=== PATIENT | female | born 1970 | race Caucasian/White ===

== ENCOUNTER 2019-07-14 01:31 | Day surgery (SDC) | payer OTHER, SELFPAY ==
[2019-07-10 11:01] VITALS: BMI 30.2
--- NOTE | 2019-07-14 07:26 | P.HP_ITS ---
History of Present Illness History of Present Illness Consent: Risks, benefits, and alternatives have been discussed and questions answered. Patient agrees to proceed with procedure. Chief complaint: Hx of Polyps Narrative: Macrina Soria is a 49 year old W female undergoing screening colonoscopy secondary history of multiple colonic polyps removed 2 years ago. Patient also has intermittent diarrhea and history of microscopic colitis. Patient also with some intermittent abdominal pain bloating. She had a negative breath test For bacterial overgrowth. [facility] Past Medical History Medical History Heartburn Hypertension Surgical History Surgical History History of ankle surgery History of D&C History of hysterectomy Status post creation of urethral sling by suprapubic approach Family History Family History Mother Hypertension Family history of malignant neoplasm of breast in first degree relative Father Family history of lymphoma Other Cerebrovascular accident Family history of malignant neoplasm Social History Social History Smoking status: Never smoker Alcohol intake: current Meds Home Medications and Allergies Home Medications Medication Instructions Recorded Confirmed Type budesonide-formoterol HFA 80 2 puff INHALATION Q12H 03/03/19 07/10/19 History mcg-4.5 mcg/actuation aerosol inhaler hydrochlorothiazide 12.5 mg capsule 12.5 mg PO QAM 03/03/19 07/10/19 History montelukast 10 mg tablet 10 mg PO HS 03/03/19 07/10/19 History Bifidobacterium infantis [Align] 4 mg PO DAILY 07/10/19 07/10/19 History famotidine [Pepcid] 20 mg PO HS 07/10/19 07/10/19 History hyoscyamine sulfate 0.125 mg PO TID PRN 07/10/19 07/10/19 History nebivolol [Bystolic] 10 mg PO HS 07/10/19 07/10/19 History omeprazole 40 mg PO QAM 07/10/19 07/10/19 History Allergies Allergy/AdvReac Type Severity Reaction Status Date / Time sulfamethoxazole Allergy Unknown Rash Verified 07/10/19 10:50 trimethoprim Allergy Unknown Rash Verified 07/10/19 10:50 Exam Const: Orientation/consciousness: patient oriented x3 Resp: Auscultation: clear to auscultation bilaterally Cardio: Rate: regular rate Rhythm: regular rhythm Heart sounds: no murmurs GI: GI Palp: Yes Soft to palpation, No Tenderness to palpation present (GI), Yes No hepatosplenomegaly present and No Palpable mass present Auscultation: normal bowel sounds Neuro: General: patient oriented x3 and no focal motor deficits Extrem: General: no pedal edema Assessment and Plan Additional Plan Screening colonoscopy secondary history of colonic polyps
[2019-07-14 07:54] VITALS: BP 135/94; PULSE 85; RESP 16; TEMP 36.4; O2SAT 98
[2019-07-14] MEDS: LACTATED RINGERS 1,000 ML 150 ML IV CONT (07:56)
--- NOTE | 2019-07-14 07:59 | WPDANESEPPF ---
Anes - Initial Pre Proc Eval Procedure: Operation Date: 07/14/19 08:30 Proposed Procedures p Screening Colonoscopy - Paul Reyes MD Date/Time: 07/14/19 07:59 Surgeon: Paul Reyes MD Pre Op Diagnosis: Hx of Polyps Patient Data Age: 49 Gender: F Height: 5 ft 8 in Weight: 98.9 kg Last Vital Signs Temp 36.4 C L 07/14/19 07:54 Pulse 85 07/14/19 07:54 Resp 16 07/14/19 07:54 BP 135/94 H 07/14/19 07:54 Pulse Ox 98 07/14/19 07:54 Allergies Allergy/AdvReac Type Severity Reaction Status Date / Time sulfamethoxazole Allergy Unknown Rash Verified 07/14/19 07:38 trimethoprim Allergy Unknown Rash Verified 07/14/19 07:38 Home Medications Medication Instructions Recorded Confirmed Type budesonide-formoterol HFA 80 2 puff INHALATION Q12H 03/03/19 07/14/19 History mcg-4.5 mcg/actuation aerosol inhaler hydrochlorothiazide 12.5 mg capsule 12.5 mg PO QAM 03/03/19 07/14/19 History montelukast 10 mg tablet 10 mg PO HS 03/03/19 07/14/19 History Bifidobacterium infantis [Align] 4 mg PO DAILY 07/10/19 07/14/19 History famotidine [Pepcid] 20 mg PO HS 07/10/19 07/14/19 History hyoscyamine sulfate 0.125 mg PO TID PRN 07/10/19 07/14/19 History nebivolol [Bystolic] 10 mg PO HS 07/10/19 07/14/19 History omeprazole 40 mg PO QAM 07/10/19 07/14/19 History Patient hx anesthesia problems: none Family hx anesthesia problems: none PMFSH Past Medical History Medical History Heartburn Hypertension Surgical History Surgical History History of ankle surgery History of D&C History of hysterectomy Status post creation of urethral sling by suprapubic approach Family History Family History Mother Hypertension Family history of malignant neoplasm of breast in first degree relative Father Family history of lymphoma Other Cerebrovascular accident Family history of malignant neoplasm Social History Social History Smoking status: Never smoker Alcohol intake: current Anes - Eval Final PreProcedure Day of Procedure 07/14/19 07:59 Patient weight: obese Heart: regular rate and rhythm Lungs: clear to auscultation Airway: Mallampati scale class 1 Neurological: alert and oriented Last oral intake: >/= 8 hours ASA classification: III Emergent: no Anesthetic plan: proceed Anesthesia type and monitoring: general GIVS and standard monitoring Informed Consent: The patient's anesthetic plan and its attendant risks and benefits were discussed with the patient/family/POA. Questions were solicited and answers provided to the satisfaction of the patient/family/POA.
[2019-07-14 09:05] VITALS: BP 124/78; PULSE 76; RESP 20; O2SAT 100
[2019-07-14 09:15] VITALS: BP 115/71; PULSE 70; RESP 16; O2SAT 99
[2019-07-14 09:25] VITALS: BP 113/73; PULSE 66; RESP 18; O2SAT 99
== END 2019-07-14 09:40 | disposition home or self-care (01) ==
PROVIDERS: PCP Internal Medicine; Visit Provider Internal Medicine Gastroenterology
PROC: 0DJD8ZZ Inspection of Lower Intestinal Tract, Via Natural or Artificial Opening Endoscopic (ICD-10-PCS; CPT 45378; principal; 2019-07-14 08:30)
DX: Z12.11 Encounter for screening for malignant neoplasm of colon (principal); D12.2 Benign neoplasm of ascending colon; K52.9 Noninfective gastroenteritis and colitis, unspecified; K57.30 Diverticulosis of large intestine without perforation or abscess without bleeding; I10 Essential (primary) hypertension; R12 Heartburn; E66.9 Obesity, unspecified; Z68.33 Body mass index [BMI] 33.0-33.9, adult
CPT/HCPCS: 45380; 88305; J2704; J7120

== ENCOUNTER 2019-09-24 08:13 | Outpatient (CLI) | payer OTHER, SELFPAY ==
--- NOTE | ~2019-09-24 | CT_ITS ---
EXAMINATION: CT abdomen pelvis w con DATE: 09/24/2019 09:12 INDICATION: Abdominal pain and weight loss TECHNIQUE: Computed tomography (CT) of the abdomen and pelvis was performed with 100 cc Omnipaque 350 intravenous contrast. The dose-length product was 874.03 mGy-cm. Automated exposure control and iter ative reconstruction technique were employed. COMPARISON: CT dated 12/05/2004 FINDINGS: Lung bases are unremarkable. No significant pleural or pericardial effusion. Heart size is normal. No significant pleural or pericardial effusion. Fatty infiltration of the liver. Status post cholecys tectomy. The spleen, pancreas, adrenal glands and kidneys are unremarkable. Nonobstructive bowel gas pattern. Normal appendix. Nonobstructive bowel gas pattern. Small fat-containing umbilical hernia. No abnormal pelvic masses or fluid collections. Bladder is unremarkable. No significant vascular abnorm ality. No lymphadenopathy. No acute osseous abnormality. IMPRESSION: 1. Hepatic steatosis. 2: No acute abdominal abnormality. Reviewed, dictated and finalized at location A.
[2019-09-24 09:05] LABS: Estimated Glomerular Filt Rate > 60
[2019-09-24 09:10] LABS: Basophils Percent Auto 0.6 % (0.2-1.2); Eosinophils Absolute Auto 0.1 K/mm3 (0-0.3); Eosinophils Percent Auto 1.7 % (0-4.4); Hemoglobin 12.1 g/dL (12.0-15.0); Immature Granulocyte Absolute 0.01 K/mm3 (0.00-0.031); Immature Granulocyte Percent A 0.2 % (0-0.5); Lymphocytes Absolute Auto 2.09 K/mm3 (0.9-3.2); Lymphocytes Percent Auto 39.3 % (18.3-44.2); Mean Corpuscular HGB Conc 31.8 g/dl (32-36); Mean Corpuscular Hemoglobin 27.9 pg (26-34); Mean Corpuscular Volume 87.8 fl (80-100); Monocytes Absolute Auto 0.5 K/mm3 (0.1-0.6); Neutrophils Absolute Auto 2.6 K/mm3 (1.3-6.7); Neutrophils Percent Auto 48.2 % (45.5-73.1); Platelet Count Result 237 k/mm3 (150-375); Red Blood Count 4.33 M/mm3 (4.2-5.4); Red Cell Distribution Width 14.3 % (11.5-14.5); White Blood Count 5.3 K/mm3 (4.5-10.0)
[2019-09-24 09:28] LABS: Alanine Aminotransferase 21 U/L (4-35); Albumin Level 4.4 g/dL (3.5-5.1); Alkaline Phosphatase 64 U/L (38-126); Aspartate Amino Transferase 26 U/L (14-36); Bilirubin,Total 0.5 mg/dL (0.2-1.3); Blood Urea Nitrogen 21 mg/dL (7-17); Calcium 9.4 mg/dL (8.4-10.2); Carbon Dioxide 33 mmol/L (22-30); Chloride 100 mmol/L (98-107); Cholesterol 212 mg/dL (0-200); Estimated Glomerular Filt Rate > 60; Glucose 102 mg/dL (65-105); HDL Direct 46 mg/dL; Magnesium 1.8 mg/dL (1.6-2.3); Potassium 3.8 mmol/L (3.4-5.0); Sodium 138 mmol/L (137-145); Triglycerides 147 mg/dL (<150)
[2019-09-24 09:39] LABS: LDL Cholesterol Direct 132 mg/dL
[2019-09-24 09:58] LABS: Free T4 Free Thyroxine 0.94 ng/mL (0.78-2.19); Vitamin D 25 Hydroxy 73.1 ng/mL
== END 2019-09-24 08:14 | disposition home or self-care (01) ==
PROVIDERS: PCP Internal Medicine; Referring Provider Internal Medicine; Visit Provider Internal Medicine Gastroenterology
DX: R10.9 Unspecified abdominal pain (principal); R63.4 Abnormal weight loss; K76.0 Fatty (change of) liver, not elsewhere classified
CPT/HCPCS: 36415; 74177; 80053; 80061; 82306; 83735; 84439; 84443; 85025; Q9967

== ENCOUNTER 2020-02-04 15:34 | Outpatient (CLI) | payer OTHER, SELFPAY ==
--- NOTE | ~2020-02-04 | XR_ITS ---
EXAMINATION: XR chest 2V EXAM DATE: 02/04/2020 15:58 INDICATION: Asthma, pulmonary checkup. TECHNIQUE: Frontal and lateral projections of the chest obtained and reviewed. Comparison is made to prior examination from 09/04/2018. FINDINGS: The lungs are clear. There are no pleural effusions. The cardiomediastinal silhouette is within normal limits. There is no pneumothorax suspected. The bones and soft tissues are unremarkab le. There are cholecystectomy clips. IMPRESSION: Unremarkable chest x-ray exam. Reviewed, dictated and finalized at location B.
== END 2020-02-04 15:35 | disposition home or self-care (01) ==
PROVIDERS: PCP Internal Medicine; Visit Provider Internal Medicine Pulmonary Disease
DX: J45.909 Unspecified asthma, uncomplicated (principal)
CPT/HCPCS: 71046

== ENCOUNTER 2020-02-25 17:53 | Emergency (ER) | payer OTHER, SELFPAY ==
--- NOTE | ~2020-02-25 | CT_ITS ---
EXAMINATION: CT abdomen pelvis w con DATE: 02/25/2020 20:33 INDICATION: Abdomen pain TECHNIQUE: Computed tomography (CT) of the abdomen and pelvis was performed with 100 cc Omnipaque 350 intravenous contrast. The dose-length product was 860.96 mGy-cm. Automated exposure control and iter ative reconstruction technique were employed. COMPARISON: CT dated 09/24/2019 FINDINGS: Lung bases are unremarkable. Heart size normal. No significant pleural or pericardial effus ion. There are cholecystectomy clips. The liver, spleen, pancreas, adrenal glands and kidneys are unremarkable. Bladder is unremarkable. No significant vascular abnormality. Nonobstructive bowel gas pattern. No free air or free fluid. Statu s post hysterectomy. Normal appendix. No acute osseous abnormality. IMPRESSION: 1. No acute abdominal abnormality. Reviewed, dictated and finalized at location A.
[2020-02-25 18:03] VITALS: BP 139/84; PULSE 91; RESP 18; TEMP 36.2; O2SAT 100
[2020-02-25 18:20] LABS: Basophils Absolute Auto 0.1 K/mm3 (0.0-0.1); Basophils Percent Auto 0.5 % (0.2-1.2); Eosinophils Absolute Auto 0.1 K/mm3 (0-0.3); Eosinophils Percent Auto 0.5 % (0-4.4); Immature Granulocyte Absolute 0.05 K/mm3 (0.00-0.031); Immature Granulocyte Percent A 0.5 % (0-0.5); Lymphocytes Absolute Auto 2.78 K/mm3 (0.9-3.2); Lymphocytes Percent Auto 30.4 % (18.3-44.2); Mean Corpuscular HGB Conc 31.7 g/dl (32-36); Mean Corpuscular Hemoglobin 27.9 pg (26-34); Mean Platelet Volume 9.1 fl (7.4-10.4); Monocytes Absolute Auto 0.8 K/mm3 (0.1-0.6); Monocytes Percent Auto 8.4 % (2.6-8.5); Neutrophils Absolute Auto 5.4 K/mm3 (1.3-6.7); Neutrophils Percent Auto 59.7 % (45.5-73.1); Platelet Count Result 307 k/mm3 (150-375); Red Blood Count 4.66 M/mm3 (4.2-5.4); Red Cell Distribution Width 14.3 % (11.5-14.5); White Blood Count 9.1 K/mm3 (4.5-10.0)
[2020-02-25 18:32] LABS: Alanine Aminotransferase 23 U/L (4-35); Albumin Level 4.5 g/dL (3.5-5.1); Alkaline Phosphatase 64 U/L (38-126); Anion Gap 10 mmol/L (8-16); Aspartate Amino Transferase 24 U/L (14-36); Bilirubin,Total 0.3 mg/dL (0.2-1.3); Blood Urea Nitrogen 23 mg/dL (7-17); Calcium 9.3 mg/dL (8.4-10.2); Carbon Dioxide 30 mmol/L (22-30); Chloride 100 mmol/L (98-107); Estimated CRCL calculation 71 ml/min; Estimated Glomerular Filt Rate 58; Glucose 116 mg/dL (65-105); Lipase 132 U/L (23-300); Potassium 3.3 mmol/L (3.4-5.0); Sodium 140 mmol/L (137-145)
[2020-02-25] MEDS: BELLADONNA ALK/PHENOB ELIX 10 ML, MAG HYDROX/ALUMINUM HYD/SIMETH 30 ML, LIDOCAINE HCL 2... PO (18:47)
[2020-02-25 19:27] LABS: Add Urine Microscopic? NO; Appearance Urine Clear (Clear); Bilirubin Urine Negative (Negative); Blood Urine Negative (Negative); Color Urine Straw (Yellow); Glucose Urine UA Negative (Negative); Ketones Urine Negative (Negative); Leukocyte Esterase Ur Negative LEU/UL (Negative); Nitrate Urine Negative (Negative); Protein Urine Negative (Negative); Specific Grav Ur 1.011 (1.001-1.035); Urobilinogen Urine Negative mg/dL (<2.0)
[2020-02-25] MEDS: SODIUM CHLORIDE 0.9% IV 1,000 ML 150 ML IV CONT (20:54)
[2020-02-25] MEDS: ONDANSETRON INJ 4 MG/2 ML VIAL IV PUSH (20:56)
[2020-02-25] MEDS: fentaNYL CITRATE INJ (*CRX) 100 MCG/2 ML VIAL 25 MCG IV PUSH (20:58)
--- NOTE | 2020-02-25 21:47 | ED.ABDPAIN ---
HPI - Abdominal Pain General Chief Complaint: Abdominal Pain Stated Complaint: abd pain Time Seen by Provider: 02/25/20 18:33 Source: patient Mode of arrival: ambulatory Limitations: no limitations History of Present Illness HPI narrative: 50-year-old with a long history of GERD, here with complaints of upper abdominal pain radiating to the back since last 2 days however got worse today. Patient states that she has taken multiple medications still continues to have pain in the epigastric area. She states that she feels nauseated occasionally but no vomiting. She denies any chest pain or shortness of breath. MD elicited complaint: abdominal pain Pertinent past history: gastritis Onset (ago): day(s) (2) Pain Consistency: constant Location: epigastric Severity: moderate Quality: aching Radiation: back Migration to: no migration Exacerbating factors: nothing Relieving factors: nothing Related Data Home Medications Medication Instructions Recorded Confirmed budesonide-formoterol HFA 80 2 puff INHALATION Q12H 03/03/19 02/23/20 mcg-4.5 mcg/actuation aerosol inhaler hydrochlorothiazide 12.5 mg capsule 12.5 mg PO QAM 03/03/19 02/23/20 montelukast 10 mg tablet 10 mg PO HS 03/03/19 02/23/20 Align 4 mg PO DAILY 07/10/19 02/23/20 Bystolic 10 mg PO HS 07/10/19 02/23/20 famotidine [Pepcid] 20 mg PO HS 07/10/19 02/23/20 omeprazole 40 mg PO QAM 07/10/19 02/23/20 Allergies Allergy/AdvReac Type Severity Reaction Status Date / Time sulfamethoxazole Allergy Unknown Rash Verified 02/23/20 10:41 trimethoprim Allergy Unknown Rash Verified 02/23/20 10:41 Review of Systems Review of Systems: All systems reviewed & are unremarkable except as noted in HPI and below Constitutional: Constitutional: Reports no additional constitutional complaints Eyes: Eyes: Reports as per HPI ENT: Reports system reviewed and no additional complaints, except as documented Cardiovascular: Cardiovascular: Reports no additional cardiovascular complaints Respiratory: Respiratory: Reports no additional respiratory complaints Gastrointestinal: Gastrointestinal: Reports as per HPI Musculoskeletal: Musculoskeletal: Reports no additional musculoskeletal complaints Neurologic: Reports system reviewed and no additional complaints, except as documented [facility] Past Medical History Medical History (Updated 02/25/20 @ 21:57 by Cirilo Stone MD) Heartburn Hypertension Surgical History Surgical History History of ankle surgery History of D&C History of hysterectomy Status post creation of urethral sling by suprapubic approach Family History Family History Mother Hypertension Family history of malignant neoplasm of breast in first degree relative Father Family history of lymphoma Other Cerebrovascular accident Family history of malignant neoplasm Social History Social History Smoking status: Never smoker Alcohol intake: current Gender identity (if verbalized by the patient): Female Exam Narrative: Exam Narrative: GENERAL: Well-appearing, well-nourished, and in no acute distress. HEAD: Normocephalic, atraumatic. EYES: PERRLA and EOMI. ENT: Nares clear, Mucous membranes moist. NECK: Supple. CHEST: Clear to auscultation. No respiratory distress. HEART: Regular rate and rhythm. No murmur heard. Normal peripheral pulses. ABDOMEN: Soft, mild epigastric , nondistended, normal active bowel sounds. EXTREMITIES: Normal range of motion. No edema. SKIN: Warm, dry, no rash. NEURO: No focal deficits. Alert and oriented x3. PSYCH: Normal mood and affect. Course Course Emergency Course: Inform patient about her lab work. Patient states that she is feeling much better after for now. I discussed labs and CT findings with the patient Vital Signs Vital signs: Vital Signs Temp
[2020-02-25 22:50] VITALS: BP 126/73; PULSE 71; RESP 18; O2SAT 97
--- NOTE | 2020-03-03 22:25 | PC.NURSE ---
LATE ENTRY This note is being entered to document information to the patient's record. The following information was omitted on [Normal Saline stopped at 2250 on 02/25/2020], by [Tri Neri].
== END 2020-02-25 22:54 | disposition home or self-care (01) ==
PROVIDERS: Emergency Provider Family Medicine; PCP Internal Medicine
DX: K29.70 Gastritis, unspecified, without bleeding (principal); I10 Essential (primary) hypertension; K21.9 Gastro-esophageal reflux disease without esophagitis
CPT/HCPCS: 36415; 74177; 80053; 81003; 83690; 85025; 96361; 96374; 96375; 99284; A9270; J2405; J3010; J7030; Q9967

== ENCOUNTER 2020-03-30 13:45 | Outpatient (CLI) | payer OTHER, SELFPAY ==
[2020-03-30 14:58] LABS: Potassium 3.9 mmol/L (3.4-5.0)
[2020-03-30 15:10] LABS: Immunoglobulin A 201 mg/dL (70-400)
[2020-03-30 15:21] LABS: Erythrocyte Sedimentation Rate 26 mm/hr (0-20)
[2020-04-02 21:54] LABS: Tissue Transglutaminase IgA Ab 1 U/mL (<4)
== END 2020-03-30 13:46 | disposition home or self-care (01) ==
PROVIDERS: PCP Internal Medicine; Visit Provider Internal Medicine
DX: E87.6 Hypokalemia (principal); K52.9 Noninfective gastroenteritis and colitis, unspecified; R10.13 Epigastric pain
CPT/HCPCS: 36415; 82784; 83516; 84132; 85652

== ENCOUNTER 2020-04-07 12:17 | Outpatient (CLI) | payer OTHER, SELFPAY ==
[2020-04-16 00:07] LABS: Calprotectin, Stool 206 mcg/g
== END 2020-04-07 12:18 | disposition home or self-care (01) ==
PROVIDERS: PCP Internal Medicine
DX: R10.13 Epigastric pain (principal); K52.9 Noninfective gastroenteritis and colitis, unspecified
CPT/HCPCS: 83993; 87015; 87045; 87046; 87269; 87272; 87427

== ENCOUNTER 2020-07-13 11:01 | Outpatient (CLI) | payer OTHER, SELFPAY ==
[2020-07-13 11:23] LABS: Basophils Percent Auto 0.6 % (0.2-1.2); Eosinophils Absolute Auto 0.1 K/mm3 (0-0.3); Eosinophils Percent Auto 1.6 % (0-4.4); Hematocrit 37.1 % (37.0-47.0); Hemoglobin 11.8 g/dL (12.0-15.0); Immature Granulocyte Absolute 0.01 K/mm3 (0.00-0.031); Immature Granulocyte Percent A 0.2 % (0-0.5); Lymphocytes Absolute Auto 2.16 K/mm3 (0.9-3.2); Lymphocytes Percent Auto 44.4 % (18.3-44.2); Mean Corpuscular HGB Conc 31.8 g/dl (32-36); Mean Corpuscular Hemoglobin 26.8 pg (26-34); Mean Corpuscular Volume 84.3 fl (80-100); Mean Platelet Volume 8.8 fl (7.4-10.4); Monocytes Absolute Auto 0.5 K/mm3 (0.1-0.6); Monocytes Percent Auto 9.2 % (2.6-8.5); Neutrophils Absolute Auto 2.1 K/mm3 (1.3-6.7); Platelet Count Result 256 k/mm3 (150-375); Red Cell Distribution Width 14.6 % (11.5-14.5); White Blood Count 4.9 K/mm3 (4.5-10.0)
[2020-07-13 11:40] LABS: Alanine Aminotransferase 23 U/L (4-35); Albumin Level 4.3 g/dL (3.5-5.1); Alkaline Phosphatase 58 U/L (38-126); Aspartate Amino Transferase 32 U/L (14-36); Bilirubin,Total 0.4 mg/dL (0.2-1.3); Blood Urea Nitrogen 16 mg/dL (7-17); Calcium 9.1 mg/dL (8.4-10.2); Carbon Dioxide 35 mmol/L (22-30); Chloride 100 mmol/L (98-107); Cholesterol 228 mg/dL (0-200); Estimated Glomerular Filt Rate > 60; Glucose 94 mg/dL (65-105); HDL Direct 50 mg/dL; Magnesium 1.5 mg/dL (1.6-2.3); Potassium 3.8 mmol/L (3.4-5.0); Triglycerides 126 mg/dL (<150)
[2020-07-13 11:46] LABS: LDL Cholesterol Direct 131 mg/dL
[2020-07-13 12:08] LABS: Anion Gap 5 mmol/L (8-16); Sodium 140 mmol/L (137-145)
[2020-07-13 12:10] LABS: Free T4 Free Thyroxine 0.99 ng/mL (0.78-2.19); Vitamin D 25 Hydroxy 81.5 ng/mL
== END 2020-07-13 11:02 | disposition home or self-care (01) ==
PROVIDERS: PCP Internal Medicine; Visit Provider Internal Medicine
DX: I47.1 Supraventricular tachycardia (principal); E78.5 Hyperlipidemia, unspecified; E55.9 Vitamin D deficiency, unspecified
CPT/HCPCS: 36415; 80053; 80061; 82306; 83735; 84439; 84443; 85025

== ENCOUNTER 2021-01-05 09:51 | Outpatient (CLI) | payer OTHER, SELFPAY ==
[2021-01-05 10:35] LABS: Basophils Percent Auto 0.9 % (0.2-1.2); Eosinophils Absolute Auto 0.1 K/mm3 (0-0.3); Hematocrit 39.5 % (37.0-47.0); Hemoglobin 12.4 g/dL (12.0-15.0); Immature Granulocyte Absolute 0.01 K/mm3 (0.00-0.031); Immature Granulocyte Percent A 0.2 % (0-0.5); Lymphocytes Absolute Auto 1.75 K/mm3 (0.9-3.2); Lymphocytes Percent Auto 39.4 % (18.3-44.2); Mean Corpuscular HGB Conc 31.4 g/dl (32-36); Mean Corpuscular Hemoglobin 26.9 pg (26-34); Mean Corpuscular Volume 85.7 fl (80-100); Monocytes Absolute Auto 0.5 K/mm3 (0.1-0.6); Monocytes Percent Auto 10.8 % (2.6-8.5); Neutrophils Absolute Auto 2.1 K/mm3 (1.3-6.7); Neutrophils Percent Auto 46.7 % (45.5-73.1); Platelet Count Result 266 k/mm3 (150-375); Red Blood Count 4.61 M/mm3 (4.2-5.4); Red Cell Distribution Width 14.4 % (11.5-14.5); White Blood Count 4.4 K/mm3 (4.5-10.0)
[2021-01-05 10:46] LABS: Alanine Aminotransferase 23 U/L (4-35); Albumin Level 4.5 g/dL (3.5-5.1); Alkaline Phosphatase 62 U/L (38-126); Anion Gap 8 mmol/L (8-16); Aspartate Amino Transferase 29 U/L (14-36); Bilirubin,Total 0.3 mg/dL (0.2-1.3); Blood Urea Nitrogen 19 mg/dL (7-17); Calcium 9.6 mg/dL (8.4-10.2); Carbon Dioxide 29 mmol/L (22-30); Chloride 101 mmol/L (98-107); Cholesterol 254 mg/dL (0-200); Estimated Glomerular Filt Rate > 60; Glucose 101 mg/dL (65-110); HDL Direct 53 mg/dL; Magnesium 1.8 mg/dL (1.6-2.3); Sodium 138 mmol/L (137-145); Triglycerides 193 mg/dL (<150)
[2021-01-05 10:57] LABS: LDL Cholesterol Direct 132 mg/dL
[2021-01-05 12:22] LABS: Free T4 Free Thyroxine 0.85 ng/mL (0.78-2.19); Vitamin D 25 Hydroxy 80.4 ng/mL
== END 2021-01-05 09:52 | disposition home or self-care (01) ==
PROVIDERS: PCP Internal Medicine; Visit Provider Internal Medicine
DX: E78.5 Hyperlipidemia, unspecified (principal); E55.9 Vitamin D deficiency, unspecified
CPT/HCPCS: 36415; 80053; 80061; 82306; 83735; 84439; 84443; 85025

== ENCOUNTER 2021-02-08 15:08 | Outpatient (CLI) | payer OTHER, SELFPAY ==
--- NOTE | ~2021-02-08 | DEXA_ITS ---
Bone Density Report Name: Macrina Soria Age: 51 Sex: Female Ethnicity: White Date of : 1970 Indication: postmenopausal; inflammatory bowel disease; prior fracture; asthma or emphysema; hysterectomy; Referring Provider: Katina, Dayron Study: Bone densitometry was performed. Exam Date: February 08, 2021 Accession number: [id number] Bone Density: Region BMD T-score Z-score Classification AP Spine (L1-L4) 1.387 3.1 4.0 Normal Femoral Neck (Left) 1.031 1.6 2.6 Normal Total Hip (Left) 1.246 2.5 3.1 Normal Total Hip Bilateral Avg 1.246 2.5 3.1 Normal Femoral Neck (Right) 1.107 2.3 3.3 Normal Total Hip (Right) 1.245 2.5 3.1 Normal World Health Organization criteria for BMD impression classify patients as: Normal (T-score at or above -1.0), Osteopenia (T-score between -1.0 and -2.5), or Osteoporosis (T-score at or below -2.5). 10-year Fracture Risk: FRAX not reported because: All T-scores for Spine Total, Hip Total, Femoral Neck at or above -1.0 Clinical Information Provided by Patient: Has had a low trauma fracture Has used the following medications: Vitamin D Has the following medical conditions: Asthma or Emphysema, Inflammatory bowel diseases, Hysterectomy Patient maximum height was 67 Menopause Age: 34 Onset of menses at age 13 Number of children 2 Impression: The patient has normal bone mass. The patient has risk factors, including: previous fracture. Discussion: LOW RISK OF FRACTURE; BONE DENSITY IS WELL ABOVE THE MINIMUM DESIRABLE LEVEL AND ABOVE AVERAGE FOR AGE AND SEX AT ALL SKELETAL SITES TESTED. This person's bone density is above expected limits for age and sex. This is rarely clinically significant, but should be pursued if there are significant musculoskeletal complaints. The patient should follow a healthful lifestyle (good nutrition with adequate calcium and vitamin D, and appropriate weight-bearing exercise). Follow-Up: Consider repeating this study in 5 years or sooner if there is some new clinical indication. Reported by: KINGSLEY on 02/08/2021 3:32:00 PM. Reviewed, dictated and finalized at location ARebeca SWENSON
== END 2021-02-08 15:09 | disposition home or self-care (01) ==
LOC: ANHIMG 15:12
PROVIDERS: PCP Internal Medicine; Visit Provider Internal Medicine
DX: Z78.0 Asymptomatic menopausal state (principal); Z13.820 Encounter for screening for osteoporosis
CPT/HCPCS: 77080

== ENCOUNTER 2021-07-14 10:47 | Outpatient (CLI) | payer OTHER, SELFPAY ==
[2021-07-14 11:15] LABS: Basophils Percent Auto 0.9 % (0.2-1.2); Eosinophils Absolute Auto 0.1 K/mm3 (0-0.3); Eosinophils Percent Auto 2.2 % (0-4.4); Hematocrit 37.2 % (37.0-47.0); Hemoglobin 11.9 g/dL (12.0-15.0); Immature Granulocyte Absolute 0.01 K/mm3 (0.00-0.031); Immature Granulocyte Percent A 0.2 % (0-0.5); Lymphocytes Absolute Auto 1.76 K/mm3 (0.9-3.2); Lymphocytes Percent Auto 37.8 % (18.3-44.2); Mean Corpuscular Hemoglobin 28.3 pg (26-34); Mean Corpuscular Volume 88.6 fl (80-100); Mean Platelet Volume 9.1 fl (7.4-10.4); Monocytes Absolute Auto 0.5 K/mm3 (0.1-0.6); Monocytes Percent Auto 9.9 % (2.6-8.5); Neutrophils Absolute Auto 2.3 K/mm3 (1.3-6.7); Platelet Count Result 234 k/mm3 (150-375); White Blood Count 4.7 K/mm3 (4.5-10.0)
[2021-07-14 11:25] LABS: Alanine Aminotransferase 24 U/L (4-35); Albumin Level 4.5 g/dL (3.5-5.1); Alkaline Phosphatase 72 U/L (38-126); Anion Gap 6 mmol/L (8-16); Aspartate Amino Transferase 29 U/L (14-36); Bilirubin,Total 0.4 mg/dL (0.2-1.3); Blood Urea Nitrogen 18 mg/dL (7-17); Calcium 9.1 mg/dL (8.4-10.2); Carbon Dioxide 34 mmol/L (22-30); Chloride 100 mmol/L (98-107); Cholesterol 156 mg/dL (0-200); Estimated Glomerular Filt Rate > 60; Glucose 97 mg/dL (65-110); HDL Direct 49 mg/dL; Magnesium 1.8 mg/dL (1.6-2.3); Potassium 3.9 mmol/L (3.4-5.0); Sodium 140 mmol/L (137-145); Triglycerides 137 mg/dL (<150)
[2021-07-14 11:36] LABS: LDL Cholesterol Direct 66 mg/dL
[2021-07-14 11:45] LABS: Free T4 Free Thyroxine 1.05 ng/mL (0.78-2.19); Vitamin D 25 Hydroxy 83.5 ng/mL
== END 2021-07-14 10:48 | disposition home or self-care (01) ==
LOC: ANHLAB 10:50
PROVIDERS: PCP Internal Medicine; Visit Provider Internal Medicine
DX: E78.5 Hyperlipidemia, unspecified (principal); E55.9 Vitamin D deficiency, unspecified
CPT/HCPCS: 36415; 80053; 80061; 82306; 83735; 84439; 84443; 85025

== ENCOUNTER 2022-01-30 10:58 | Outpatient (CLI) | payer OTHER, SELFPAY ==
[2022-01-30 12:04] LABS: Basophils Absolute Auto 0.1 K/mm3 (0.0-0.1); Basophils Percent Auto 0.8 % (0.2-1.2); Eosinophils Absolute Auto 0.1 K/mm3 (0-0.3); Hematocrit 36.7 % (37.0-47.0); Hemoglobin 11.9 g/dL (12.0-15.0); Immature Granulocyte Absolute 0.02 K/mm3 (0.00-0.031); Immature Granulocyte Percent A 0.3 % (0-0.5); Lymphocytes Percent Auto 36.7 % (18.3-44.2); Mean Corpuscular HGB Conc 32.4 g/dl (32-36); Mean Corpuscular Hemoglobin 28.5 pg (26-34); Mean Corpuscular Volume 87.8 fl (80-100); Monocytes Absolute Auto 0.6 K/mm3 (0.1-0.6); Monocytes Percent Auto 9.2 % (2.6-8.5); Neutrophils Absolute Auto 3.1 K/mm3 (1.3-6.7); Platelet Count Result 253 k/mm3 (150-375); Red Blood Count 4.18 M/mm3 (4.2-5.4)
[2022-01-30 12:19] LABS: Alanine Aminotransferase 32 U/L (6-35); Albumin Level 4.6 g/dL (3.5-5.1); Alkaline Phosphatase 79 U/L (38-126); Anion Gap 10 mmol/L (8-16); Aspartate Amino Transferase 32 U/L (14-36); Bilirubin,Total 0.5 mg/dL (0.2-1.3); Blood Urea Nitrogen 16 mg/dL (7-17); Calcium 9.3 mg/dL (8.4-10.2); Carbon Dioxide 29 mmol/L (22-30); Chloride 99 mmol/L (98-107); Cholesterol 166 mg/dL (0-200); Estimated Glomerular Filt Rate > 60; Glucose 97 mg/dL (65-110); HDL Direct 52 mg/dL; Magnesium 1.7 mg/dL (1.6-2.3); Potassium 3.7 mmol/L (3.4-5.0); Sodium 138 mmol/L (137-145); Triglycerides 165 mg/dL (<150)
[2022-01-30 12:30] LABS: LDL Cholesterol Direct 83 mg/dL
[2022-01-30 13:02] LABS: Free T4 Free Thyroxine 1.19 ng/mL (0.78-2.19); Vitamin D 25 Hydroxy 79.7 ng/mL
== END 2022-01-30 10:59 | disposition home or self-care (01) ==
LOC: ANHLAB 10:59
PROVIDERS: PCP Internal Medicine; Visit Provider Internal Medicine
DX: E78.5 Hyperlipidemia, unspecified (principal); E55.9 Vitamin D deficiency, unspecified
CPT/HCPCS: 36415; 80053; 80061; 82306; 83735; 84439; 84443; 85025

== ENCOUNTER 2022-06-07 07:54 | Outpatient (CLI) | payer OTHER, SELFPAY ==
[2022-06-07 20:20] LABS: Basophils Percent Auto 0.8 % (0.2-1.2); Eosinophils Absolute Auto 0.1 K/mm3 (0-0.3); Eosinophils Percent Auto 2.2 % (0-4.4); Hematocrit 36.4 % (37.0-47.0); Hemoglobin 11.7 g/dL (12.0-15.0); Immature Granulocyte Absolute 0.01 K/mm3 (0.00-0.031); Immature Granulocyte Percent A 0.3 % (0-0.5); Lymphocytes Absolute Auto 1.41 K/mm3 (0.9-3.2); Lymphocytes Percent Auto 38.1 % (18.3-44.2); Mean Corpuscular HGB Conc 32.1 g/dl (32-36); Mean Corpuscular Hemoglobin 28.8 pg (26-34); Mean Corpuscular Volume 89.7 fl (80-100); Mean Platelet Volume 9.4 fl (7.4-10.4); Monocytes Absolute Auto 0.3 K/mm3 (0.1-0.6); Monocytes Percent Auto 8.9 % (2.6-8.5); Neutrophils Absolute Auto 1.8 K/mm3 (1.3-6.7); Neutrophils Percent Auto 49.7 % (45.5-73.1); Platelet Count Result 243 k/mm3 (150-375); Red Blood Count 4.06 M/mm3 (4.2-5.4); Red Cell Distribution Width 14.3 % (11.5-14.5); White Blood Count 3.7 K/mm3 (4.5-10.0)
[2022-06-07 20:27] LABS: Cholesterol 156 mg/dL (0-200); HDL Direct 50 mg/dL; Triglycerides 153 mg/dL (<150)
[2022-06-07 20:41] LABS: LDL Cholesterol Direct 66 mg/dL
[2022-06-08 08:54] LABS: Alanine Aminotransferase 26 U/L (6-35); Albumin Level 4.4 g/dL (3.5-5.1); Alkaline Phosphatase 66 U/L (38-126); Anion Gap 7 mmol/L (8-16); Aspartate Amino Transferase 29 U/L (14-36); Bilirubin,Total 0.4 mg/dL (0.2-1.3); Blood Urea Nitrogen 18 mg/dL (7-17); Calcium 8.9 mg/dL (8.4-10.2); Carbon Dioxide 31 mmol/L (22-30); Chloride 97 mmol/L (98-107); Estimated Glomerular Filt Rate > 60; Glucose 87 mg/dL (65-110); Potassium 3.2 mmol/L (3.4-5.0); Sodium 135 mmol/L (137-145)
== END 2022-06-07 07:55 | disposition home or self-care (01) ==
PROVIDERS: PCP Internal Medicine; Visit Provider Internal Medicine
DX: Z79.899 Other long term (current) drug therapy (principal)
CPT/HCPCS: 36415; 80053; 80061; 82306; 84443; 85025

== ENCOUNTER 2022-06-21 14:52 | Outpatient (CLI) | payer OTHER, SELFPAY | END 2022-06-21 14:53 | disposition home or self-care (01) | LOC: ANHAUDASC 14:53 | PROVIDERS: PCP Internal Medicine; Visit Provider Internal Medicine | DX: H90.3 Sensorineural hearing loss, bilateral (principal) | CPT/HCPCS: 92557; 92567 ==

== ENCOUNTER 2022-06-28 07:45 | Outpatient (CLI) | payer OTHER, SELFPAY ==
[2022-06-28 20:23] LABS: Potassium 3.2 mmol/L (3.4-5.0)
== END 2022-06-28 07:46 | disposition home or self-care (01) ==
PROVIDERS: PCP Internal Medicine; Visit Provider Internal Medicine
DX: E87.6 Hypokalemia (principal)
CPT/HCPCS: 36415; 84132

== ENCOUNTER 2022-12-14 07:54 | Outpatient (CLI) | payer OTHER, SELFPAY ==
[2022-12-14 18:54] LABS: Alanine Aminotransferase 30 U/L (6-35); Albumin Level 4.5 g/dL (3.5-5.1); Alkaline Phosphatase 79 U/L (38-126); Anion Gap 10 mmol/L (8-16); Aspartate Amino Transferase 35 U/L (14-36); Bilirubin,Total 0.6 mg/dL (0.2-1.3); Blood Urea Nitrogen 18 mg/dL (7-17); Calcium 9.4 mg/dL (8.4-10.2); Carbon Dioxide 29 mmol/L (22-30); Chloride 99 mmol/L (98-107); Cholesterol 159 mg/dL (0-200); Estimated Glomerular Filt Rate > 60; Glucose 108 mg/dL (65-110); HDL Direct 44 mg/dL; Potassium 3.6 mmol/L (3.4-5.0); Sodium 138 mmol/L (137-145); Triglycerides 151 mg/dL (<150)
[2022-12-14 19:05] LABS: LDL Cholesterol Direct 79 mg/dL
[2022-12-14 19:13] LABS: Basophils Absolute Auto 0.1 K/mm3 (0.0-0.1); Basophils Percent Auto 0.9 % (0.2-1.2); Eosinophils Absolute Auto 0.1 K/mm3 (0-0.3); Eosinophils Percent Auto 2.4 % (0-4.4); Hematocrit 37.4 % (37.0-47.0); Hemoglobin 12.1 g/dL (12.0-15.0); Immature Granulocyte Absolute 0.01 K/mm3 (0.00-0.031); Immature Granulocyte Percent A 0.2 % (0-0.5); Lymphocytes Absolute Auto 1.84 K/mm3 (0.9-3.2); Lymphocytes Percent Auto 34.1 % (18.3-44.2); Mean Corpuscular HGB Conc 32.4 g/dl (32-36); Mean Corpuscular Hemoglobin 29.4 pg (26-34); Mean Corpuscular Volume 90.8 fl (80-100); Mean Platelet Volume 9.5 fl (7.4-10.4); Monocytes Absolute Auto 0.5 K/mm3 (0.1-0.6); Monocytes Percent Auto 9.6 % (2.6-8.5); Neutrophils Absolute Auto 2.8 K/mm3 (1.3-6.7); Neutrophils Percent Auto 52.8 % (45.5-73.1); Platelet Count Result 254 k/mm3 (150-375); Red Blood Count 4.12 M/mm3 (4.2-5.4); Red Cell Distribution Width 13.6 % (11.5-14.5); White Blood Count 5.4 K/mm3 (4.5-10.0)
== END 2022-12-14 07:55 | disposition home or self-care (01) ==
LOC: ANHASCLAB 07:55
PROVIDERS: PCP Internal Medicine; Visit Provider Internal Medicine
DX: E78.5 Hyperlipidemia, unspecified (principal)
CPT/HCPCS: 36415; 80053; 80061; 85025

== ENCOUNTER 2023-05-25 15:43 | Outpatient (CLI) | payer OTHER, SELFPAY ==
--- NOTE | ~2023-05-25 | US_ITS ---
EXAMINATION: US thyroid DATE: 05/25/2023 16:14 INDICATION: Thyroid nodule. TECHNIQUE: Multiple ultrasound images of the thyroid were obtained. COMPARISON: None. FINDINGS: The right thyroid lobe measures 6.1 x 2.3 x 3.1 cm. The left thyroid lobe measures 3.5 x 1.0 x 1.3 c m. The thyroid demonstrates heterogeneous echogenicity. In the left thyroid lobe, there is an 8 mm s olid, very hypoechoic, [id number] nodule with smooth margin without echogenic foci (TI-RADS TR4) . In the right thyroid lobe, there is a 3.9 cm solid, predominantly hyperechoic, wider than tall nodu le with ill-defined margin without echogenic foci (TR3). IMPRESSION: 1. Thyroid nodules. Ultrasound-guided fine-needle aspiration of the 3.9 cm right thyroid nodule is re commended. Reviewed, dictated and finalized at location E. ICAL MAKER IMPRESSION: 1. Thyroid nodules. Ultrasound-guided fine-needle aspiration of the 3.9 cm righ t thyroid nodule is recommended.
== END 2023-05-25 15:44 | disposition home or self-care (01) ==
LOC: ANHIMG 15:45
PROVIDERS: PCP Internal Medicine; Visit Provider Internal Medicine
DX: E04.2 Nontoxic multinodular goiter (principal)
CPT/HCPCS: 76536

== ENCOUNTER 2023-06-22 14:02 | Emergency (ER) | payer OTHER, SELFPAY ==
[2023-06-22] VITALS (9 sets, daily range): BP systolic 126–147; BP diastolic 79–94; PULSE 67–81; RESP 12–22; TEMP 36.7; O2SAT 98–100
--- NOTE | ~2023-06-22 | CT_ITS ---
EXAMINATION: CT abdomen pelvis w con DATE: 06/23/2023 00:03 INDICATION: Nausea and vomiting. Periumbilical and epigastric abdominal pain. TECHNIQUE: Computed tomography (CT) of the abdomen and pelvis was performed with 100 mL Omnipaque 350 intravenous contrast. Automated exposure control and iterative reconstruction technique were employe d. The dose-length product was 782.28 mGy-cm. COMPARISON: CT abdomen and pelvis 02/25/2020 FINDINGS: The visualized portions of the lung bases demonstrate mild atelectasis. No pleural effusion . The heart size is normal. No pericardial effusion. The liver and spleen are normal. There are henderson es of cholecystectomy. The pancreas, adrenal glands, and kidneys are normal. There is diverticulosis of the colon without evidence of diverticulitis. There are no dilated loops of bowel. The appendix is normal. There are no pathologically enlarged lymph nodes. There is no free intraperitoneal fluid. Th ere are umbilical and supraumbilical ventral hernias containing fat. There is mild thoracic spondylos is. There is moderate lower lumbar spondylosis. IMPRESSION: 1. Umbilical and supraumbilical ventral hernias containing fat. Reviewed, dictated and finalized at location E. R PRODUCTION WORKER
--- NOTE | 2023-06-22 14:21 | ECG_ITS ---
Measurements Intervals [place] Rate: 63 P: 24 GA: 158 QRS: -12 QRSD: 111 T: -15 QT: 426 QTc: 439 Interpretive Statements SINUS RHYTHM MODERATE INTRAVENTRICULAR CONDUCTION DELAY [110+ ms QRS DURATION] MODERATE ST DEPRESSION [0.05+ mV ST DEPRESSION] LOW-VOLTAGE QRS IN PRECORDIAL LEADS BORDERLINE ECG COMPARED TO ECG 09/04/2018 02:50:04 INTRAVENTRICULAR CONDUCTION DELAY NOW PRESENT ST (T WAVE) DEVIATION NOW PRESENT Electronically Signed On 06-23-2023 14:33:39 HEEL SEAT FITTER by Darrell Crowley M.D.
--- NOTE | 2023-06-22 22:47 | ED.ABDPAIN ---
HPI - Abdominal Pain General Chief Complaint: Abdominal Pain Stated Complaint: SYNCOPAL EPISODE, N/V/D Time Seen by Provider: 06/22/23 21:26 History of Present Illness HPI narrative: 53-year-old female presents via EMS from home for nausea, vomiting, diarrhea and abdominal pain. Patient states about 2 days ago, she began developing chills and sweats. States she started vomiting, then the next day developed diarrhea. She states she has had watery brown diarrhea since. Patient reports her abdominal pain is in the periumbilical and epigastric region and describes the pain as ?cramping?. States he earlier today, she felt lightheaded after having a severe stomach cramping and states it felt like she was going to pass out, lowered herself to the ground and lost consciousness. She did not hit her head per Her daughter witnessed the event and called 911. She reports a history of unknown hiatal hernia, microscopic colitis, diverticulosis. She had a colonoscopy on 06/04 which she states showed evidence of diverticulosis and polyps, there is no evidence of colitis at that time. Denies diagnosis of UC or Crohn's. Reports a low-grade fever of 100.2 of the onset of symptoms which has since resolved. Denies chest pain or shortness of breath, dysuria or hematuria, melena or hematochezia. Denies recent surgery or travel, hospitalizations, antibiotic use. She is s/p lap choly and hysterectomy. Related Data Home Medications Medication Instructions Recorded Confirmed Bifidobacterium infantis 4 mg 4 mg PO DAILY 07/10/19 05/07/23 capsule (Align) nebivolol 10 mg tablet (Bystolic) 10 mg PO HS 07/10/19 05/07/23 dicyclomine 10 mg capsule 10 mg PO TID 03/29/22 05/07/23 hydrochlorothiazide 12.5 mg capsule 25 mg PO QAM 05/07/23 05/07/23 nortriptyline 50 mg capsule 35 mg PO DAILY 05/07/23 05/07/23 pantoprazole 40 mg tablet,delayed 40 mg PO BID 05/07/23 05/07/23 release sertraline 50 mg tablet (Zoloft) 50 mg PO DAILY 05/07/23 05/07/23 Allergies Allergy/AdvReac Type Severity Reaction Status Date / Time sulfamethoxazole Allergy Unknown Rash Verified 06/22/23 22:38 trimethoprim Allergy Unknown Rash Verified 06/22/23 22:38 Review of Systems Review of Systems: CONSTITUTIONAL: See HPI EYES: Denies visual changes, redness, or discharge. ENT: Denies rhinorrhea, congestion, sore throat, or otalgia. CARDIOVASCULAR: Denies chest pain, palpitations, or edema. RESPIRATORY: Denies cough or dyspnea. GASTROINTESTINAL: See HPI GENITOURINARY: Denies dysuria or hematuria. SKIN: Denies rash or itching. MUSCULOSKELETAL: Denies back pain, joint pain, or myalgia. NEUROLOGIC: Denies headache, numbness, or weakness. PSYCHIATRIC: Denies anxiety or depression. [facility] Past Medical History Medical History COVID Heartburn Hypertension Surgical History Surgical History History of ankle surgery History of cardiac radiofrequency ablation History of section History of cholecystectomy History of D&C x2 History of hysterectomy Status post creation of urethral sling by suprapubic approach Family History Family History Mother Hypertension Family history of malignant neoplasm of breast in first degree relative Father Family history of lymphoma Other Cerebrovascular accident Family history of malignant neoplasm Social History Social History Smoking status: Never smoker Alcohol intake: current Substance use: never Substance use type: does not use Do You Feel Safe in your Home?: Yes Lack of Transportation: No Lack of Food: Never True Current Housing: I Have Housing Concerned About Future Housing: No Difficulty Paying Gas/Electric Bills: No Difficulty Paying for Meds: No Currently Unemployed: No
[2023-06-22] MEDS: ONDANSETRON INJ 4 MG/2 ML VIAL IV PUSH (23:08)
[2023-06-22] MEDS: SODIUM CHLORIDE 0.9% IV 1,000 ML 999 ML IV CONT (23:08)
[2023-06-22] MEDS: FAMOTIDINE 20 MG/2 ML VIAL IV PUSH (23:08)
[2023-06-22] MEDS: ACETAMINOPHEN 500 MG TABLET 1000 MG PO (23:09)
[2023-06-22 23:10] LABS: Basophils Percent Auto 0.2 % (0.2-1.2); Eosinophils Percent Auto 0.2 % (0-4.4); Hematocrit 38.9 % (37.0-47.0); Hemoglobin 12.7 g/dL (12.0-15.0); Immature Granulocyte Absolute 0.02 K/mm3 (0.00-0.031); Immature Granulocyte Percent A 0.4 % (0-0.5); Lymphocytes Percent Auto 21.3 % (18.3-44.2); Mean Corpuscular HGB Conc 32.6 g/dl (32-36); Mean Corpuscular Volume 88.8 fl (80-100); Monocytes Absolute Auto 0.7 K/mm3 (0.1-0.6); Monocytes Percent Auto 11.7 % (2.6-8.5); Neutrophils Absolute Auto 3.7 K/mm3 (1.3-6.7); Neutrophils Percent Auto 66.2 % (45.5-73.1); Platelet Count Result 251 k/mm3 (150-375); Red Blood Count 4.38 M/mm3 (4.2-5.4); Red Cell Distribution Width 13.6 % (11.5-14.5); White Blood Count 5.6 K/mm3 (4.5-10.0)
[2023-06-22 23:20] LABS: Alanine Aminotransferase 162 U/L (6-35); Albumin Level 4.5 g/dL (3.5-5.1); Alkaline Phosphatase 124 U/L (38-126); Anion Gap 7 mmol/L (8-16); Aspartate Amino Transferase 238 U/L (14-36); Bilirubin,Total 0.9 mg/dL (0.2-1.3); Blood Urea Nitrogen 16 mg/dL (7-17); Calcium 9.3 mg/dL (8.4-10.2); Carbon Dioxide 32 mmol/L (22-30); Chloride 98 mmol/L (98-107); Estimated CRCL calculation 85 ml/min; Estimated Glomerular Filt Rate > 60; Glucose 93 mg/dL (65-110); Lipase 68 U/L (23-300); Sodium 137 mmol/L (137-145)
[2023-06-22 23:21] LABS: Lactic Acid Reflex 0.8 mmol/L (0.7-2.0)
[2023-06-22 23:26] LABS: Appearance Urine Cloudy (Clear); Bacteria Urine 2+ /hpf; Bilirubin Urine Negative (Negative); Blood Urine Negative (Negative); Color Urine Yellow (Yellow); Glucose Urine UA Negative (Negative); Ketones Urine Trace mg/dL (Negative); Leukocyte Esterase Ur 3+ LEU/UL (Negative); Nitrate Urine Negative (Negative); Non Pathogenic Casts 0-2; Protein Urine Negative (Negative); RBC Urine 0-2 /hpf (0-2); Specific Grav Ur 1.015 (1.001-1.035); Squamous Epithelial Cell Urine Moderate /hpf (Few); WBC Urine 51-100 /hpf
[2023-06-22 23:32] LABS: Troponin I 0.021 ng/mL (0.000-0.034)
--- NOTE | 2023-06-22 23:32 | PC.NURSE ---
Bedside report from SUGEY Perez. Pt resting quietly per cart in nad at this time. Family at bedside. IVF infusing.
[2023-06-22 23:36] LABS: Add Urine Microscopic? YES
[2023-06-22 23:46] LABS: Influenza A QL RT-PCR Negative (Negative); Influenza B QL RT-PCR Negative (Negative); RSV RNA, RT-PCR Negative (Negative); SARS-CoV-2 RNA PCR Negative (Negative)
[2023-06-22 23:59] LABS: Magnesium 2.1 mg/dL (1.6-2.3)
[2023-06-23 00:54] VITALS: BP 128/85; PULSE 72; RESP 15; O2SAT 100
[2023-06-23 01:01] VITALS: BP 129/85; PULSE 68; RESP 14; O2SAT 97
[2023-06-23] MEDS: POTASSIUM CHLORIDE 20 MEQ ER TABLET 40 MEQ PO (01:03)
[2023-06-23 01:45] VITALS: PULSE 69; RESP 16; O2SAT 98
[2023-06-23 02:01] VITALS: BP 129/80; PULSE 66; RESP 16; O2SAT 96
[2023-06-23] MEDS: CEPHALEXIN 500 MG CAPSULE PO (02:26)
[2023-06-23 03:01] VITALS: BP 128/68; PULSE 82; RESP 14; O2SAT 100
[2023-06-23 03:19] LABS: Troponin I < 0.012 ng/mL (0.000-0.034)
== END 2023-06-23 03:44 | disposition home or self-care (01) ==
PROVIDERS: Emergency Provider Physician Assistant; PCP Internal Medicine
DX: N30.00 Acute cystitis without hematuria (principal); K52.9 Noninfective gastroenteritis and colitis, unspecified; K43.9 Ventral hernia without obstruction or gangrene; E87.6 Hypokalemia; R55 Syncope and collapse; R94.31 Abnormal electrocardiogram [ECG] [EKG]; R74.01 Elevation of levels of liver transaminase levels; Z20.822 Contact with and (suspected) exposure to COVID-19; I10 Essential (primary) hypertension; Z86.16 Personal history of COVID-19; Z90.710 Acquired absence of both cervix and uterus; Z90.49 Acquired absence of other specified parts of digestive tract; I45.9 Conduction disorder, unspecified
CPT/HCPCS: 36415; 74177; 80053; 81001; 83605; 83690; 83735; 84484; 85025; 87086; 87637; 93005; 96361; 96374; 96375; 99284; A9270; J2405; J7030; Q9967

== ENCOUNTER 2023-06-25 08:11 | Outpatient (CLI) | payer OTHER, SELFPAY ==
[2023-06-25 19:02] LABS: Basophils Percent Auto 0.6 % (0.2-1.2); Eosinophils Absolute Auto 0.1 K/mm3 (0-0.3); Eosinophils Percent Auto 1.6 % (0-4.4); Hemoglobin 12.9 g/dL (12.0-15.0); Immature Granulocyte Absolute 0.01 K/mm3 (0.00-0.031); Immature Granulocyte Percent A 0.2 % (0-0.5); Lymphocytes Absolute Auto 1.48 K/mm3 (0.9-3.2); Lymphocytes Percent Auto 29.1 % (18.3-44.2); Mean Corpuscular HGB Conc 31.5 g/dl (32-36); Mean Corpuscular Hemoglobin 29.3 pg (26-34); Mean Corpuscular Volume 93.2 fl (80-100); Mean Platelet Volume 9.2 fl (7.4-10.4); Monocytes Absolute Auto 0.5 K/mm3 (0.1-0.6); Monocytes Percent Auto 8.9 % (2.6-8.5); Neutrophils Percent Auto 59.6 % (45.5-73.1); Platelet Count Result 298 k/mm3 (150-375); Red Cell Distribution Width 13.9 % (11.5-14.5); White Blood Count 5.1 K/mm3 (4.5-10.0)
[2023-06-25 20:19] LABS: Alanine Aminotransferase 82 U/L (6-35); Albumin Level 4.6 g/dL (3.5-5.1); Alkaline Phosphatase 93 U/L (38-126); Anion Gap 10 mmol/L (8-16); Aspartate Amino Transferase 104 U/L (14-36); Bilirubin,Total 0.6 mg/dL (0.2-1.3); Blood Urea Nitrogen 17 mg/dL (7-17); Calcium 9.7 mg/dL (8.4-10.2); Carbon Dioxide 29 mmol/L (22-30); Chloride 98 mmol/L (98-107); Cholesterol 134 mg/dL (0-200); Estimated Glomerular Filt Rate > 60; Glucose 87 mg/dL (65-110); HDL Direct 40 mg/dL; Potassium 3.4 mmol/L (3.4-5.0); Sodium 137 mmol/L (137-145); Triglycerides 118 mg/dL (<150)
[2023-06-25 20:30] LABS: LDL Cholesterol Direct 68 mg/dL
== END 2023-06-25 08:12 | disposition home or self-care (01) ==
LOC: ANHASCLAB 08:14
PROVIDERS: PCP Internal Medicine; Visit Provider Internal Medicine
DX: E78.5 Hyperlipidemia, unspecified (principal); E55.9 Vitamin D deficiency, unspecified
CPT/HCPCS: 36415; 80053; 80061; 82306; 84443; 85025

== ENCOUNTER 2023-07-03 13:11 | Outpatient (CLI) | payer OTHER, SELFPAY | END 2023-07-03 13:12 | disposition home or self-care (01) | LOC: ANHASCLAB 13:15 | PROVIDERS: PCP Internal Medicine; Visit Provider Internal Medicine | DX: E83.42 Hypomagnesemia (principal); E87.6 Hypokalemia | CPT/HCPCS: 36415; 83735; 84132 ==

== ENCOUNTER 2023-07-04 15:39 | Outpatient (CLI) | payer OTHER, SELFPAY ==
--- NOTE | 2023-07-04 | ECHO_ITS ---
Patient Info Name: Macrina Soria Age: 53 years : 1970 Gender: Female Ht: 68 in Wt: 220 lbs BSA: 2.22 m2 HR: 81 bpm BP: 143 / 91 mmHg Heart Rhythm: Sinus Rhythm Technical Quality: Good Exam Date: 07/04/2023 3:59 PM Exam Location: Echo Lab Patient Status: Outpatient Admit Date: 07/04/2023 Staff Ordering Physician: Nelson Vivar MD Scrap Metal Processing Worker: Magen Steel RDCS Attending Provider: Nelson Vivar MD Exam Type: CA echo doppler color flow Study Info Indications - hx of psvt, syncope Complete two-dimensional, color flow and Doppler transthoracic echocardiogram is performed. Summary 1. Complete two-dimensional, color flow and Doppler transthoracic echocardiogram is performed. 2. Left ventricular chamber dimension is normal. 3. Left ventricular systolic function is normal, estimated at 65-70%. 4. There is mild asymmetric septal increased left ventricular wall thickness. 5. The left ventricular diastolic function is grade I diastolic dysfunction. 6. Left atrial chamber dimension is mildly enlarged. 7. There is mild mitral valve regurgitation. 8. The mitral valve annulus is mildly calcified. 9. There is mild tricuspid valve regurgitation. 10. Mild pulmonary hypertension, estimated pulmonary arterial systolic pressure is 43 mmHg. Left Ventricle Left ventricular chamber dimension is normal. Left ventricular systolic function is normal, estimated at 65-70%. There is mild asymmetric septal increased left ventricular wall thickness. The left ventricular diastolic function is grade I diastolic dysfunction. Right Ventricle Right ventricular chamber dimension is normal. Right ventricular systolic function is normal. Left Atria Left atrial chamber dimension is mildly enlarged. Right Atria Right atrial chamber dimension is normal. Atrial Septum Intact interatrial septum visualized by color flow imaging. Aortic Valve The aortic valve is trileaflet. There is no aortic valve sclerosis. There is no aortic valve stenosis. There is trace aortic valve regurgitation. Pulmonic Valve The pulmonic valve is normal. There is no pulmonic valve stenosis. There is trace pulmonic regurgitation. Mitral Valve There is no mitral valve stenosis. There is mild mitral valve regurgitation. The mitral valve annulus is mildly calcified. Tricuspid Valve The tricuspid valve leaflets are normal. There is no significant tricuspid valve stenosis. There is mild tricuspid valve regurgitation. Mild pulmonary hypertension, estimated pulmonary arterial systolic pressure is 43 mmHg. Pericardium/Pleural The pericardium appears normal. There is no pericardial effusion. Inferior Vena Cava Dilated inferior vena cava with >50% collapse upon inspiration consistent with elevated right atrial pressure, 10 mmHg. Aorta The aortic root size at the sinus of Valsalva is normal. Left Ventricular Outflow Tract Name Value Normal LVOT 2D LVOT Diameter 2.2 cm LVOT Doppler LVOT Peak Gradient 5 mmHg LVOT Mean Gradient 3 mmHg LVOT VTI 27 cm LVOT VTI/AV VTI Ratio 0.8 LVOT Stroke Volume
== END 2023-07-04 15:40 | disposition home or self-care (01) ==
LOC: ANHCARD 15:40
PROVIDERS: PCP Internal Medicine; Visit Provider Internal Medicine Cardiovascular Disease
DX: R55 Syncope and collapse (principal); Z86.79 Personal history of other diseases of the circulatory system; I08.3 Combined rheumatic disorders of mitral, aortic and tricuspid valves
CPT/HCPCS: 93306

== ENCOUNTER 2023-07-12 12:44 | Outpatient (CLI) | payer OTHER, SELFPAY ==
--- NOTE | ~2023-07-12 | US_ITS ---
EXAMINATION: US FNA w image guidance DATE: 07/12/2023 14:12 INDICATION: Nontoxic thyroid nodule. TECHNIQUE: The procedure and its benefits and risks were discussed with the patient. Risks specifically discusse d included bleeding. The patient verbalized understanding of the risks and agreed to proceed. The nec k was prepped and draped in the usual sterile manner. 1% lidocaine was used for local anesthesia. 6 passes were made with a 25G needle into the lesion under ultrasound guidance. There were no immedia te complications. FINDINGS: Grayscale ultrasound images demonstrate needles advanced into a 4.2 cm nodule in right thyroid lobe f or biopsy. IMPRESSION: 1. Ultrasound-guided fine needle aspiration of a right thyroid nodule. Reviewed, dictated and finalized at location A.
== END 2023-07-12 12:45 | disposition home or self-care (01) ==
PROVIDERS: PCP Internal Medicine; Visit Provider Internal Medicine
DX: E04.1 Nontoxic single thyroid nodule (principal)
CPT/HCPCS: 10005; 88172; 88173; 88305

== ENCOUNTER 2023-12-19 07:55 | Outpatient (CLI) | payer OTHER, SELFPAY ==
[2023-12-19 11:40] LABS: Basophils Percent Auto 0.9 % (0.2-1.2); Eosinophils Absolute Auto 0.1 K/mm3 (0-0.3); Eosinophils Percent Auto 2.2 % (0-4.4); Hematocrit 35.8 % (37.0-47.0); Hemoglobin 11.3 g/dL (12.0-15.0); Immature Granulocyte Absolute 0.01 K/mm3 (0.00-0.031); Immature Granulocyte Percent A 0.2 % (0-0.5); Lymphocytes Absolute Auto 1.55 K/mm3 (0.9-3.2); Lymphocytes Percent Auto 34.1 % (18.3-44.2); Mean Corpuscular HGB Conc 31.6 g/dl (32-36); Mean Corpuscular Volume 91.8 fl (80-100); Mean Platelet Volume 9.5 fl (7.4-10.4); Monocytes Absolute Auto 0.4 K/mm3 (0.1-0.6); Monocytes Percent Auto 9.3 % (2.6-8.5); Neutrophils Absolute Auto 2.4 K/mm3 (1.3-6.7); Neutrophils Percent Auto 53.3 % (45.5-73.1); Platelet Count Result 218 k/mm3 (150-375); Red Cell Distribution Width 14.1 % (11.5-14.5); White Blood Count 4.5 K/mm3 (4.5-10.0)
[2023-12-19 11:53] LABS: Alanine Aminotransferase 23 U/L (6-35); Albumin Level 4.2 g/dL (3.5-5.1); Alkaline Phosphatase 69 U/L (38-126); Anion Gap 8 mmol/L (4-12); Aspartate Amino Transferase 36 U/L (14-36); Bilirubin,Total 0.3 mg/dL (0.2-1.3); Blood Urea Nitrogen 20 mg/dL (7-17); Calcium 8.8 mg/dL (8.4-10.2); Carbon Dioxide 33 mmol/L (22-30); Chloride 97 mmol/L (98-107); Cholesterol 141 mg/dL (0-200); Estimated Glomerular Filt Rate > 60; Glucose 102 mg/dL (65-110); HDL Direct 46 mg/dL; Potassium 3.3 mmol/L (3.4-5.0); Sodium 138 mmol/L (137-145); Triglycerides 105 mg/dL (<150)
[2023-12-19 12:04] LABS: LDL Cholesterol Direct 67 mg/dL
[2023-12-19 12:11] LABS: Vitamin D 25 Hydroxy 53.8 ng/mL
== END 2023-12-19 07:56 | disposition home or self-care (01) ==
LOC: ANHASCLAB 07:57
PROVIDERS: PCP Internal Medicine; Visit Provider Internal Medicine
DX: E78.5 Hyperlipidemia, unspecified (principal); E55.9 Vitamin D deficiency, unspecified
CPT/HCPCS: 36415; 80053; 80061; 82306; 84443; 85025

== ENCOUNTER 2023-12-26 10:39 | Outpatient (CLI) | payer OTHER, SELFPAY | END 2023-12-26 10:40 | disposition home or self-care (01) | PROVIDERS: PCP Internal Medicine; Visit Provider Internal Medicine | DX: E87.6 Hypokalemia (principal) | CPT/HCPCS: 36415; 84132 ==

== ENCOUNTER 2024-01-18 11:15 | Outpatient (CLI) | payer OTHER, SELFPAY | END 2024-01-18 11:16 | disposition home or self-care (01) | PROVIDERS: PCP Internal Medicine; Visit Provider Internal Medicine | DX: H90.3 Sensorineural hearing loss, bilateral (principal) | CPT/HCPCS: 92557; 92567 ==

== ENCOUNTER 2024-02-11 08:38 | Outpatient (CLI) | payer OTHER, SELFPAY ==
[2024-02-11 19:02] LABS: Potassium 3.7 mmol/L (3.4-5.0)
== END 2024-02-11 08:39 | disposition home or self-care (01) ==
PROVIDERS: PCP Internal Medicine; Visit Provider Internal Medicine
DX: E87.6 Hypokalemia (principal)
CPT/HCPCS: 36415; 84132

== ENCOUNTER 2024-02-15 15:47 | Outpatient (CLI) | payer OTHER, SELFPAY ==
--- NOTE | ~2024-02-15 | US_ITS ---
US thyroid INDICATION: Follow-up thyroid masses. Previous benign thyroid biopsy. TECHNIQUE: Real-time sonographic images of the thyroid gland were obtained. COMPARISON: Ultrasound dated 05/25/2023 FINDINGS: The right thyroid lobe measures 4.9 x 2.2 x 2.8 cm. The left thyroid lobe measures 4 x 1.4 x 0.9 cm. Thyroid gland is diffusely heterogeneous. Persistent heterogeneous appearing right thyroid mass measuring approximately 3.9 cm. There is internal vascularity. This is not significantly change d from prior study allowing for differences of technique. In the left lobe there is a small cyst shae uring 9 mm. Isthmus measures 4 mm. IMPRESSION: 1. Stable thyroid nodules, largest in the right thyroid gland measuring up to 3.9 cm, previously bio psy-proven benign. Consider follow-up ultrasound in 12 months. Reviewed, dictated and finalized at location B. IMPRESSION: 1. Stable thyroid nodules, largest in the right thyroid gland measuring up to 3.9 cm, previously biopsy-proven benign. Consider follow-up ultrasound in 12 mo nths.
== END 2024-02-15 15:48 | disposition home or self-care (01) ==
LOC: ANHIMG 15:50
PROVIDERS: PCP Internal Medicine; Visit Provider Otolaryngology
DX: E04.2 Nontoxic multinodular goiter (principal)
CPT/HCPCS: 76536

== ENCOUNTER → 2024-03-31 15:14 | Outpatient (REF) | payer OTHER, SELFPAY | LOC: ANHLAB 15:14 | PROVIDERS: PCP Internal Medicine; Visit Provider Plastic Surgery | DX: L82.1 Other seborrheic keratosis (principal) | CPT/HCPCS: 88305 ==

== ENCOUNTER 2024-06-16 08:24 | Outpatient (CLI) | payer OTHER, SELFPAY ==
--- OUTSIDE RECORDS SUMMARY | 2024-06-16 11:21 | XMS_ITS ---
Author Organization [facility] Address [address] [place] [address] [address] [place] [address] Care Team Providers Care Ladle Mechanic Name Role Phone Vikas Mcdonough Unavailable [phone] Esvin Narayanan [phone] REASON FOR VISIT LBP Encounters Encounter Location Date Provider Diagnosis [facility] [address] [place] [address] [address] [place] [address] 04/02/2024 Esvin Narayanan Plan Of Treatment No Information Progress Notes * Macrina HOFF RDOB:1970 (54 yo F)Acc No.[id number]:04/02/2024 Patient: Marcy STORY Macrina Thapa Provider: Zafar Narayanan MD :1970 A ge:54 Y S ex:Female Date:04/02/2024 Phone: Address:[address] [place], [place] [id number] Subjective: * Chief Complaints: * 1 . LBP. * Medical History: Objective: * Vitals: Assessment: Plan: * Treatment: Forms: * Billing Information: * Visit Code: * Procedure Codes: * Electronic signature of Esvin Narayanan MD on 06/16/2024 at 11:20 AM TREATING PLANT OPERATOR Sign off status: Pending * Provider: Zafar Narayanan MD Date: 1 06/03/2023 Generated for Tim bynum/Raza/eTransmitting on: 0 06/16/2024 11:20 AM TREATING PLANT OPERATOR
--- OUTSIDE RECORDS SUMMARY | 2024-06-16 11:21 | XMS_ITS | Encounter Summary ---
Author Organization [facility] Address [address] [facility] [address] [place] [address] Care Team Providers Care Nuclear Medicine Pet Ct Technologist Name Role Phone Edwardo Verma MD Primary Care Provider [phone] Tammy Ambriz MD Primary Care Provide r Encounter Details Date Type Department Care Team (Late st Contact Info) Description 09/08/2016 Orders Only [facility] ProviderHo MD [address] [place] [address] Social History Tobacco Use Types Packs/Day Years Used Date Smoking Tobacco: Never Alcohol Use Standard Drinks/Week Comments Yes 0 (1 standard drink = 0.6 oz pur e alcohol) Comments Unknown Sex and Gender Information Value Date Recorded Sex Assigned at Not on file 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 Historical Provider [facility] Final Result documented in this encounter Visit Diagnoses Not on filedocumented in this encounter Care Teams Nuclear Medicine Pet Ct Technologist Relationship Specialty Start Date End Date Edwardo Verma MD [address] [facility] [address] [place] [address] PCP - General 07/16/15 10/22/16 Tammy Ambriz MD [address] [facility] [address] [place] [address] PCP - General Internal Medicine 10/23/16 documented as of this encounter
--- OUTSIDE RECORDS SUMMARY | 2024-06-16 11:21 | XMS_ITS | Continuity of Care Document ---
Author Organization [facility] Address [address] [place] [address] Phone Care Team Providers Care Poolroom Table Attendant Name Role Phone Lastrenu OCRhiannaPilar Unavailable Unavailable Allergies, Adverse Reactions, Alerts Substance Reaction Status Criticality Sulfa (Sulfonamide Antibiotics) HivesHives Active No Information Medications Medication Instructions Dosage Effective Dates (start - stop) Status Comments ketotifen 0.025 % (0.035 %) eye drops instill 1 drop by ophthalmic route 2 times every day into affected eye(s) 1.00 drop - Active montelukast 10 mg tablet take 1 tablet b y oral route every day in the evening 10 MG - Active ProAir HFA 90 mcg/actuation aerosol inhaler inhale 2 puff by inhalation route every 4 - 6 hours as needed - Active albuterol sulfate 2.5 mg/3 mL (0.083 %) solution for nebulization inhale 3 milliliter (2.5MG) by nebulization route every 4-6 hours as needed - Active fluticasone propionate 50 mcg/actuation nasal spray,suspension spray 2 spray by intranasal route every day in each nostril 100 MCG - Active fexofenadine 180 mg tablet take 1 tablet by oral route every morning 180 MG - Active Florastor 250 mg capsule - Activ e hydrochlorothiazide 25 mg tablet take 1 tablet by oral route every day 25 MG - Active Bystolic 10 mg tablet take 1 tablet by oral route every day 10 MG - Active Symbicort 160 mcg-4.5 mcg/actuation HFA aerosol inhaler inhale 2 puff by inhalation route 2 times every day in the morning and evening 2.00 puff - Active Vitamin D3 5,000 unit tablet - Active Dexilant 60 mg capsule, delayed release take 1 capsule by oral route 2 times every day for 8 weeks 60 MG - Active Advance Directives Directive Yes / No Effective Date File Name No Information Encounters Encounter Description Practice Location Reason(s) For Visit Diagnoses Date Provider Providers Copied on Encounter [facility], [address], [place], [place], [id number], tel:[phone] Tiff Allergy Possible allergies (chief complaint) Non-allergic rhinitisGastr o-esophageal reflux disease without esophagitis Lastrenu KelseyPilar. [address] [facility], [facility] [address], [place], [place], [address], [place]. tel:[phone] Referring Provider: Dayron pillai, [address] [facility] [address], [place], [address]. tel:[phone] Family History Family Member Type Diagnosis Age At Onset Father Problem (finding) Allergies Payers Payer name Insurance type Covered green party ID Authoriza tion(s) [employer] B[employer] CI [id number] Social History Type Description Quantity Date Captured Comments Alcohol Use Details Unknown Caffeine Use Details Unknown Tobacco Use Status No Information Smoking Status No Information Sex Female Vital Signs Date / Time: Height Weight BMI Pulse Rate Blood Pressure Temperature Respiratory Rate Body Surface Area Head Circumference Head Circ. Percentile Wt./Husam. Percentile BMI percentile Pulse Ox Inhaled Ox 10:09 AM 67.00 in 101.151 kg (223.00 lbs) 34.9 3 kg/m eter (2) 73 /min 103/65 mm[Hg] Chief Complaint And Reason For Visit From encounter dated '09/04/2018 09:30'. Possible allergies (chief complaint) Reason For Referral Reason For Referral No Information History Of Present Illness Encounter Date Complaint History Of Prese nt Illness Possible allergies (comments) Sh renu is concerned that she has seasonal allergiesSymptoms started 7-8 years ago Symptoms include PND, ocular itching and watering, hoarse voice, nasal congestion, itchy nose, frequent throat clearingSymptoms started 6-8 weeks ago and were particularly worse this year than in the pastShe typically only gets symptoms fro April until August Denies symptoms around animalsDuring this time she typically gets a sinusitis and has an asthma exacerbation as well, this year was no different and she was treated with 2 rounds of PO Prednisone by Business Continuity Specialist that cares for her asthma (Dr Dale Hand)She has never had skin testing beforeShe is currently taking Flonase, Vivian, Dayquil PRN , Sudafed PRN and Montelukast year round, but medications don't seem to help Possible allergies Functional Status Date Functional Assessmen t No Information Instructions Date Instruction Additional Infor delfina Some of your throat clearing may be due to your acid refluxContinue to see GI for this and continue to control with diet and medications. Related to Gastro-esophageal reflux disease without esophagitis Skin testing today f or perennial and seasonal inhalant allergens as well as basic foods was completely NEGATIVE. Reviewed results of negative skin testing and alternative diagnosis of non-allergic rhinitis. Discussed avoiding irritant triggers including strong odors, pollution, weather changes, smoke and other irritants. Start using Flonase, Rhinocort, Nasacort, a nasal steroid spray for better control of symptoms. In addition you may use nasal saline spray several times daily.Saline rinses may be used up to twice daily. Antihistamines are generally not helpful for this condition.However, oral decongestants used intermittently can be useful for increased sinus pressure or headaches, depending on your blood pressure. Call our office for questions or concerns. Related to Non-allergic rhinitis Medication management Assessments Type Assessment Date assessment Non-allergic rhinitis 9 assessment Gastro-esophageal reflux disease without esophagitis Mental Status Date Cognitive Assessment Orientation - [place] ed to time, place, person, situation. Patient Care Teams Name Effective Dates (start - stop) Status Members No Information
--- OUTSIDE RECORDS SUMMARY | 2024-06-16 11:21 | XMS_ITS | Continuity of Care Document ---
Author Organization [facility] Address [address] [place] [address] Phone Care Team Providers Care Dental Technology Advisor Name Role Phone Moffett OD, Jeet Unavailable Unavailable Advance Directives Directive Yes / No Effective Date File Name No Information Encounters Encounter Description Practice Location Reason(s) For Visit Diagnoses Date Provider Providers Copied on Encounter [facility], [address] [place] [address] [address], [place], [place], [address], [place] tel:[phone] [facility] No Information [address] 7[address] Moffett OD Jeet. [address] , [address], [place], [address], [place]. tel:[phone] Family History Family Member Type Diagnosis Age At Onset No Information Payers Payer name Insurance type Covered democrat ID Authoriza tion(s) No Information Social History Type Description Quantity Date Captured Comments Sex Female Smoking Status No Information Chief Complaint And Reason For Visit No Information Reason For Referral Reason For Referral No Information History Of Present Illness Encounter Date Complaint History Of Prese nt Illness No Information Functional Status Date Functional Assessmen t No Information Instructions Date Instruction Additional Infor mation No Information Assessments Type Assessment Date No Information Patient Care Teams Name Effective Dates (start - stop) Status Members No Information
--- OUTSIDE RECORDS SUMMARY | 2024-06-16 11:21 | XMS_ITS | Referral Summary ---
Author Organization [facility] Address [address] [facility] [address] Care Team Providers Care Physical Therapy Teacher Name Role Phone Tammy Ambriz MD Primary Care Provide r Allergies Active Allergy Reactions Criticality Noted Date Comments Sulfamethoxazole-Trimethoprim Rash,Fever Medium 2019 Elevated LFT Sulfa (Sulfonamide Antibiotics) Rash,Fever Medium Elevated LFT Medications nebivolol (BYSTOLIC) 10 mg tablet take 1 Tablet by oral route every day 0 0 6 Active cholecalciferol (VITAMIN D3) 5,000 unit tablet take 1 tablet by mouth once daily 0 0 7 Active Bifidobacterium infantis (ALIGN) 4 mg capsule take 1 capsule by mouth once daily 0 0 7 Active montelukast (SINGULAIR) 10 mg tablet take 1 tablet by oral route every day in the evening 0 0 6 Active budesonide-form oterol (SYMBICORT) 160-4.5 mcg/actuation inhaler inhale 2 puff by inhalation route 2 times every day in the morning and evening 0 Inhaler 0 6 Active albuterol HFA (PROVENTIL HFA,VENTOLIN HFA,PROAIR HFA) 90 mcg/actuation inhaler every 4 (four) hours 9 Active ALPRAZolam (XANAX) 0.25 mg tablet Take 1 tablet (0.25 mg total) by mouth 2 (two) times a day as needed 0 Active ipratropium-alb uteroL (DUO-NEB) 0.5-2.5 mg/3 mL nebulizer solution ipratropium 0.5 mg-albuterol 3 mg (2.5 mg base)/3 mL nebulization soln Active hydroCHLOROthia zide (HYDRODIURIL) 25 mg tablet 0 Active sertraline (ZOLOFT) 50 mg tablet Take 1 tablet (50 mg total) by mouth daily 1 Active atorvastatin (LIPITOR) 40 mg tablet 2 Active dicyclomine (BENTYL) 10 mg capsule Take 1 capsule (10 mg total) by mouth 3 (three) times a day 90 capsule 4 Active nortriptyline (PAMELOR) 25 mg capsule Take 1 capsule (25 mg total) by mouth nightly 30 capsule [address] (PROTONIX) 40 mg EC tablet Take 1 tablet (40 mg total) by mouth 2 (two) times a day before breakfast and dinner 60 tablet 4 Active Active Problems Problem Noted Date Diagnosed Date History of colon polyps 2023 Chronic diarrhea 03/30/2020 Overview (03/30/2020): Added automatically from request for surgery [id number] Epigastric pain 03/30/2020 Overview (03/30/2020): Added automatically from request for surgery [id number] Lymphocytic colitis 01/13/2020 SVT (supraventricular tachycardia) 07/14/2015 Overview (08/04/2016): SVT Assessment & Plan (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 She continues to do well without recurrence tachycardia. We will continue to monitor and follow closely, and manage new / recurrent arrhythmia expectantly. The patient will follow-up with me in 24 months for an office visit and twelve- lead ECG. Assessment & Plan (06/02/2017 12:02 PM OTR REFRIGERATED CDL TRUCK DRIVER): The patient has not experienced symptoms post ablation for AVNRT. The palpitations that she described previously appear to have improved. We will continue to monitor and follow closely, and manage new / recurrent arrhythmia expectantly. The patient will follow-up with me in twelve months for an office visit and twelve-lead ECG. Assessment & Plan (11/03/2016 2:31 PM CDT): The patient has a history of SVT, for which she underwent successful ablation in October 2015. When we last saw her, she experienced symptoms that were very similar to those associated with narrow complex tachycardia prior to her ablation. Event monitoring, performed in the time since, has been unrevealing. It is possible that her complaints are related to recurrence of SVT, but also may be related to a new, as of yet undiagnosed arrhythmia. I discussed various options with the patient. For now, we will continue to monitor her for recurrence. If she does have another episode of tachycardia, repeat EP study for diagnostic (and potentially therapeutic) purposes will be pursued. The patient will follow-up with me in 6 months for an office visit and twelve- lead ECG. Immunizations Immunization Administration Dates Next Due PrePayMe SARS-CoV-2 Monovalent Vaccination (12+ Yrs) PURPLE 02/11/2021 Social History Tobacco Use Types Packs/Day Years Used Date Smoking Tobacco: Never Smokeless Tobacco: Never Tobacco Cessation:Counseling Given: Not Answered Alcohol Use Standard Drinks/Week Comments Yes 0 (1 standard drink = 0.6 oz pur e alcohol) AUDIT-C Answer Date Recorded Q1: How often do you have a drink containing alc ohol? 2-4 times a month 06/04/2023 Q2: How many drinks containi ng alcohol do you have on a typical day when you are drinking? 1 or 2 06/04/2023 Q3: How often do you have si x or more drinks on one occasion? Never 06/04/2023 Personal Safety Answer Date Recorded Have you ever been in or are you currently in a harmful physical or emotional relationship or is someone making you feel afraid or unsafe? 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 Gender Identity Female 01/12/2020 4:54 PM CDT Sexual Orientation Straight 02/09/2024 9: 46 AM CDT Last Filed Vital Signs Vital Sign Reading Time Taken Comments Blood Pressure 120/74 12/26/2023 2:18 PM CDT Pulse 85 12/26/2023 2:18 PM CDT Temperature 36.3 C (97.3 F) 11/27/2023 8:39 AM CDT Respiratory Rate 14 06/26/2023 8:47 AM OTR REFRIGERATED CDL TRUCK DRIVER Oxygen Saturation 96% 12/26/2023 2:18 PM CDT Inhaled Oxygen Concentration - - Weight 105.2 kg (231 lb 14.4 oz) 12/26/2023 2:18 PM CDT Height 170.2 cm (5' 7 ) 12/26/2023 2:18 PM CDT Body Mass Index 36.32 12/26/2023 2:18 PM CDT Plan of Treatment Not on file Procedures Procedure Name Priority Date/Time Associated Diagnosis Comments COLONOSCOPY 06/04/2023 1:51 PM OTR REFRIGERATED CDL TRUCK DRIVER from Last 3 Months or Most Recently Relevant to Health Maintenance Results * COLONOSCOPY (06/04/2023 1:51 PM OTR REFRIGERATED CDL TRUCK DRIVER) Anatomical Region Laterality Modality Other Narrative Procedure Note Tracy Jimenez MD - 06/04/2023 1:51 PM CST ENDOSCOPY LAB Patient Name: Macrina Soria Procedure Date: 06/04/2023 1:51 PM Date of : 1970 Admit Type: Outpatient Age: 53 Gender: Female Attending MD: Tracy Jimenez M.D. Room: [facility] ENDOSCOPY ROOM 01 Note Status: Finalized Procedure: Colonoscopy Indications: High risk colon cancer surveillance: Personalhistory of colonic polyps, Last colonoscopy: March2020 Providers: Tracy Jimenez M.D. Referring MD: Tammy Ambriz M.D. Medicines: Monitored Anesthesia Care Complications: No immediate complications. Estimated blood loss: Minimal. Estimated Blood Loss: Estimated blood loss was minimal. Procedure: Pre-Anesthesia Assessment: - Immediately prior to administration ofmedications, the patient was re-assessed for adequacy to receive sedatives. The benefits, risks and alternatives of theprocedure and sedation were discussed and informed consentwas obtained. All questions were answered. Please referto the signed informed consent document in the medical record. The scope was passed under direct vision.The [id number] was introduced through the anusand advanced to the terminal ileum. The colonoscopy was performed without difficulty. The patient tolerated the procedure well. The quality of the bowel preparation was evaluated using the BBPS (BostonBowel Preparation Scale) with scores of: Right Colon = 3, Transverse Colon = 3 and Left Colon = 3 (entiremucosa seen well with no residual staining, smallfragments of stool or opaque liquid). The total BBPS score equals 9. AI Technology was utilized during the procedure to aid in polyp detection. Findings: The digital rectal exam was normal. The terminal ileum appeared normal. A 4 mm polyp was found in the ileocecal valve. The polyp was sessile. The polyp was removed with a cold snare. Resection and retrieval were complete. A 3 mm polyp was found in the ascending colon. The polyp was sessile. The polyp was removed with a cold snare. Resection and retrieval were complete. Four sessile polyps were found in the transverse colon. The polypswere 3 to 4 mm in size. These polyps were removed with a cold snare. Resection and retrieval were complete. Scattered diverticula were found in the sigmoid colon, descendingcolon and transverse colon. The mucosa throughout the colon otherwise appeared unremarkable. Biopsies for histology were taken with a cold forceps from the entire colon for evaluation of microscopic colitis. The retroflexed view of the distal rectum and anal verge was normaland showed no anal or rectal abnormalities. Impression: - The examined portion of the ileum was normal. - One 4 mm polyp at the ileocecal valve, removedwith a cold snare. Resected and retrieved. - One 3 mm polyp in the ascending colon, removedwith a cold snare. Resected and retrieved. - Four 3 to 4 mm polyps in the transverse colon, removed with a cold snare. Resected andretrieved. - Diverticulosis in the sigmoid colon, in the descending colon and in the transverse colon. - Random colon biopsies obtained - The distal rectum and anal verge are normal on retroflexion view. Recommendation: - Follow-up biopsy results. Please call the officeif you do not receive results in 2 weeks. - Patient has a contact number available for emergencies. The signs and symptoms of potential delayed complications were discussed with thepatient. Return to normal activities tomorrow. Written discharge instructions were provided to thepatient. - Contact Information: During normal business hours - Please call [facility] Coordinator: [phone] After hours, evening, nights, weekends and holidays- Please call the hospital tandem mill operator at and ask for the GI fellow handyperson. Electronically by Dr Tracy Jimenez Tracy Jimenez M.D. 06/04/2023 2:26:25 PM Number of Addenda: 0 Note Initiated On: 06/04/2023 1:51 PM Tracy Jimenez MD ENDOSCOPY PROCEDURES Final Result from Last 3 Months or Most Recently Relevant to Health Maintenance Insurance [facility] Advance Directives For more information, please contact: [phone] * Full Code (Latest Code Status on File) Date Activated Date Inactivated Comments 06/04/2023 12:58 PM 06/04/2023 7:22 PM * Full Code Date Activated Date Inactivated Comments 04/05/2020 8:32 AM 04/05/2020 2:31 PM Care Teams Physical Therapy Teacher Relationship Specialty Start Date End Date Tammy Ambriz MD [address] [place] [address] PCP - General Internal Medicine 10/23/16
--- OUTSIDE RECORDS SUMMARY | 2024-06-16 11:21 | XMS_ITS | Clinical Summary ---
[facility] Organization 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 She continues to do well without recurrence tachycardia. We will continue to monitor and follow closely, and manage new / recurrent arrhythmia expectantly. The patient will follow-up with me in 24 months for an office visit and twelve- lead ECG. Assessment & Plan (06/02/2017 12:02 PM HYPERION ANALYST): The patient has not experienced symptoms post [...] ECG. Immunizations Immunization Administration Dates Next Due [email or web address] SARS-CoV-2 Monovalent Vaccination (12+ Yrs) PURPLE 02/11/2021 Surgical History Surgery Date Site/Laterality Comments TOTAL ABDOMINAL HYSTERECTOMY CHOLECYSTECTOMY SECTION COLONOSCOPY UPPER GASTROINTESTINAL ENDOSCOPY ANKLE SURGERY BLADDER SUSPENSION Medical History Medical History Date Comments Gastroesophageal reflux disease Hypertension Asthma Paroxysmal SVT (supraventricular tachycardia) (H CC) s/p ablation 2016 Chronic diarrhea lymphocytic col itis 2018 Family History Medical History Relation Name Comments COPD Father COPD; Stroke Father Breast cancer Mother Cancer, breast ; Relation Name Status Comments Father (Age 62) Mother Social History Tobacco Use Types Packs/Day Years [...] on file Legal Sex Female 9:29 AM HYPERION ANALYST Gender Identity Female 01/12/2020 4:54 PM CDT Sexual Orientation Straight 02/09/2024 9: 46 AM CDT Obstetrics History Last Filed Vital Signs Vital Sign Reading Time Taken Comments Blood Pressure 120/74 12/26/2023 2:18 PM CDT Pulse 85 12/26/2023 2:18 PM CDT Temperature 36.3 C (97.3 F) 11/27/2023 8:39 AM CDT Respiratory Rate 14 06/26/2023 8:47 AM HYPERION ANALYST Oxygen Saturation 96% 12/26/2023 2:18 PM CDT Inhaled Oxygen Concentration - - Weight 105.2 kg (231 lb 14.4 oz) 12/26/2023 2:18 PM CDT Height 170.2 cm (5' 7 ) 12/26/2023 2:18 PM CDT Body Mass Index 36.32 12/26/2023 2:18 PM CDT Plan of Treatment Health Maintenance Due Date Last Done Comments Depression Screening 1970 Hepatitis C Screening 1970 Pneumococcal vaccine <65 (1 of 2 - PCV) 01/21/1974 Hepatitis B Screening 01/21/1986 Regular Well Visit/Exam 18-64 01/21/1986 Zoster Vaccine (1 of 2) 01/21/2018 Breast Cancer Screening-Mammogram 12/23/2023 12/22/2022, 12/16/2021, 12/14/2020, Additional history exists Covid-19 Vaccine (2023-2 5 season) 2023 10/17/2021, 02/11/2021, 01/28/2021, Additional history exists DTaP/Tdap/Td Vaccine (2 - Td or Tdap) 03/07/2027 03/07/2017 Colon Cancer Screening-Colonoscopy 06/04/2033 06/04/2023, 04/05/2020 Colon Cancer Screening-CT Colonography Discontinued 06/04/2023, 04/05/2020 Colon Cancer Screening-DNA Stool Discontinued 06/04/19, 04/05/2020 Colon Cancer Screening-FIT Discontinued 06/04/2023, Colon Cancer Screening-Sigmoidoscopy Discontinued 06/04/2023, 04/05/2020 Influenza Vaccine Completed 02/13/2024, , 01/28/2021, Additional history exists Procedures Procedure Name Priority Date/Time Associated Diagnosis Comments COLONOSCOPY 06/04/2023 1:51 PM HYPERION ANALYST from Last 3 Months or Most Recently Relevant to Health Maintenance Results * COLONOSCOPY (06/04/2023 1:51 PM HYPERION ANALYST) Anatomical Region Laterality Modality Other Narrative Procedure Note Tracy Jimenez MD - 06/04/2023 1:51 PM CST ENDOSCOPY LAB Patient Name: Macrina Soria Procedure Date: 06/04/2023 1:51 PM Date of : 1970 Admit Type: Outpatient Age: 53 Gender: Female Attending MD: Tracy Jimenez M.D. Room: [facility] ENDOSCOPY ROOM 01 Note Status: Finalized Procedure: Colonoscopy Indications: High risk colon cancer surveillance: Personalhistory of colonic polyps, Last colonoscopy: March2020 Providers: Tracy Jimenez M.D. Referring MD: Murtuzah H. Bahrainwala, M.D. Medicines: Monitored Anesthesia Care Complications: No [...] The scope was passed under direct vision.The [id number] was introduced through the anusand advanced to [...] During normal business hours - Please call [facility] Coordinator: [phone] After hours, evening, nights, weekends and holidays- Please call the hospital charger operator helper at and ask for the GI fellow distribution operations supervisor. Electronically by Dr Tracy Jimenez Tracy Jimenez M.D. 06/04/2023 2:26:25 PM Number of Addenda: 0 Note Initiated On: 06/04/2023 1:51 PM Tracy Jimenez MD ENDOSCOPY PROCEDURES Final Result from Last 3 Months or Most Recently Relevant to Health Maintenance Insurance [facility] Advance Directives For more information, please contact: [phone] * Full Code (Latest Code Status on File) Date Activated Date Inactivated Comments 06/04/2023 12:58 PM 06/04/2023 7:22 PM * Full Code Date Activated Date Inactivated Comments 04/05/2020 8:32 AM 04/05/2020 2:31 PM Care Teams Business Quality Assurance Analyst Relationship Specialty Start Date End Date Tammy Ambriz MD [address] [place] [address] PCP - General Internal Medicine 10/23/16
--- OUTSIDE RECORDS SUMMARY | 2024-06-16 11:21 | XMS_ITS | Patient Health Record ---
Author Organization [facility] Billing Info Address [address] [place] [address] [place] [address] Support Name Relationship Address Phone Yang Mirza Emergency Contact [address] [place] [address] Macrina Soria Guarantor Unknown [phone] Allergies Allergen (clinical drug ingredient) Drug/Non Drug Allergy documented on EMR Reaction Allergy Type Onset Date Status sulfamethoxazole / trimethoprim Bactrim rash/hives Drug Allergy Active povidone-iodine Betadine rash/hives Drug Allergy Active Reason For Referral No Information Medications Medication SIG (Take, Route, Frequency, Duration) Notes Start Date End Date Status Hydrochlorothiazide 50 MG 1 tablet in th e morning Orally Once a day Active Nexium 40 MG 1 capsule Orally Onc e a day Active Align 4 MG Orally Active Symbicort 80-4.5 MCG/ACT 2 puffs Inhalat ion Twice a day Active Vitamin D-3 5000 1 capsule Orally Onc e a day Active Tramadol HCl 50 MG 1 tablet as needed O rally every 6 hrs for 5 days 11/30/2016 Active Singulair 10 MG 1 tablet in the even ing Orally Once a day Active Zantac 300 MG 1 tablet at bedtime Orally Once a day Active Bystolic 10 MG 1 tablet Orally Once a day Active Social History Tobacco Use: Social History Observation Description Date Details (start date - stop date) Never Smoker NA - NA Tobacco Status: Question Answer Notes Patient is a never smoker Problems Problem Type SNOMED Code ICD Code Onset Dates Problem Status W/U Status Risk Notes Problem 47866054 Essential hypertension (I10) Active confirmed Problem 5230272 SVT (supraventricular tachycardia) (I47.1) Active confirmed Problem 426305522 Uncomplicated asthma, unspecified asthma severity (J45.909) Active confirmed Problem 736858933 Gastroesophageal reflux disease, esophagitis presence not specified (K21.9) Active confirmed Problem 01130634 Irritable bowel syndrome, unspecified type (K58.9) Active confirmed Plan Of Treatment No Information Insurance Providers Payer Name Payer Address Payer Phone Subscriber Number Group Number Insured Name Patient Relationship to Insured Coverage Start Date Coverage End Date [employer] [address] [address] [place], [place] [id number] Macrina Soria Self - patient is the insured 7 7 Medications Administered Medication Instructions Date of Administration Dosage Notes Methylprednisolone Acetate 80 mg (Depo Medrol) 11/30/2016 80 mg tolerated we ll pt, in the waiting room for 20 min Medical (General) History Medical History History ICD Code Gastroesophageal reflux disease, esophag itis presence not specified K21.9 Essential hypertension I10 Uncomplicated asthma, unspecified asthma severity J45.909 Irritable bowel syndrome, unspecified ty pe K58.9 SVT (supraventricular tachycardia) I47.1 Surgical History Surgery Date(Month/Year) tonsillectomy adenoidectomy D&C x2 1999 cholecystectomy, laparoscopic 2002 hysterectomy, total abdominal fratured left ankle 2006 bladder sling cardiac ablasion
--- OUTSIDE RECORDS SUMMARY | 2024-06-16 11:22 | XMS_ITS ---
Author Organization [facility] Address [address] [place] [address] [address] [place] [address] Care Team Providers Care Cushion Gum Applicator Name Role Phone Vikas Mcdonough Unavailable [phone] Encounters Encounter Location Date Provider Diagnosis [facility] [address] [facility] [address] [place] [address] 03/11/2024 Vikas Mcdonough Plan Of Treatment No Information Progress Notes * Macrina HOFF RDOB:1970 (54 yo F)Acc No.[id number]:03/11/2024 Patient: Macrina GUERRA Provider: Luis Angel Mcdonough MD :1970 A ge:54 Y S ex:Female Date:03/11/2024 Phone: Address:[address] [place], [place] [id number] Subjective: * Chief Complaints: * * Medical History: Objective: * Vitals: Assessment: Plan: * Treatment: Forms: * Billing Information: * Visit Code: * Procedure Codes: * Electronic signature of Isaias Mcdonough MD on 06/16/2024 at 11:21 AM IMITATION MARBLE MECHANIC Sign off status: Pending * Provider: Luis Angel Mcdonough MD Date: 1 05/11/2023 Generated for Tim bynum/Raza/Jessicaitting on: 0 06/16/2024 11:21 AM IMITATION MARBLE MECHANIC
--- OUTSIDE RECORDS SUMMARY | 2024-06-16 11:22 | XMS_ITS | Referral Summary ---
Author Organization [facility] Address [address] [place] [address] Care Team Providers Care Sales Project Manager Name Role Phone Dayron Ambriz MD Primary Care Provider Source Comments [facility],non-owned Affiliates and Associated Physician Practices is amultiple site organization consisting of ambulatory clinics and hospital sitesin [place], [place], [place] and [place]. This disclosure is being madepursuant to the Care Everywhere program and may not contain all information available regarding this patient. Last updated 18.[facility] Allergies Active Allergy Reactions Criticality Noted Date Comments Morphine Other 02/05/2019 Reaction: ESOPHAGEAL SPASM, Sulfa Drugs Rash,Fever Medium 02/05/2019 Medications * Be aware that medications may not be up to date on this document. Alwaysverify current medications with the patient. Medication Sig Dispensed Refills Start Date End Date Status budesonide-formoter ol (SYMBICORT) 160-4.5 MCG/ACT inhaler Symbicort 160 mcg-4.5 mcg/actuation HFA aerosol inhaler Active albuterol (PROVENTIL;VENTOLIN ) (2.5 MG/3ML) 0.083% nebulizer solution inhale 3 milliliter (2.5MG) by nebulization route every 4-6 hours as needed 09/04/2018 Active albuterol HFA (VENTOLIN HFA) 108 (90 Base) MCG/ACT inhaler every 4 hours 09/04/2018 Active ALPRAZolam (XANAX) 0.25 MG tablet alprazolam 0.25 mg tablet Active Cholecalciferol (D-5000) 5000 units 09/08/2016 Activ e fluticasone propionate (FLONASE) 50 MCG/ACT nasal spray [place] 2 sprays into the nose every 24 hours 09/04/2018 Active hydroCHLOROthiazide (HYDRODIURIL) 25 MG tablet Take by mouth every 24 hours Active montelukast (SINGULAIR) 10 MG tablet montelukast 10 mg tablet 09/04/2018 Active nebivolol (BYSTOLIC) 10 MG tablet Take by mouth every 24 hours Active omeprazole (PRILOSEC) 40 MG capsule omeprazole 40 mg capsule,delayed release Active famotidine (PEPCID) 20 MG tablet Take 20 mg by mouth at bedtime Active Social History Tobacco Use Types Packs/Day Years Used Date Smoking Tobacco: Never Smokeless Tobacco: Never Alcohol Use Standard Drinks/Week Comments Yes 0 (1 standard drink = 0.6 oz pur e alcohol) AUDIT-C Answer Date Recorded Frequency of Alcohol Consumption 2-4 times a sun02/05/2019 Average Number of Drinks 1 or 2 019 Frequency of Binge Drinking Never 12/2018 Sex and Gender Information Value Date Recorded Sex Assigned at Female 02/11/2024 5:53 PM CDT Gender Identity Female 02/11/2024 5:53 PM CDT Sexual Orientation Straight 02/11/2024 5: 53 PM CDT Last Filed Vital Signs Vital Sign Reading Time Taken Comments Blood Pressure - - Pulse - - Temperature - - Respiratory Rate - - Oxygen Saturation - - Inhaled Oxygen Concentration - - Weight 99.8 kg (220 lb) 02/22/2024 3:55 PM CDT Height 170.2 cm (5' 7 ) 02/22/2024 3:55 PM CDT Body Mass Index 34.46 02/22/2024 3:55 PM CDT Plan of Treatment Not on file Procedures Procedure Name Priority Date/Time Associated Diagnosis Comments MAMMO BILAT SCREENING W GREGORY Routine 02/22/2024 4:06 PM CDT Screening mammogram for breast cancer CYTOLOGY SMEAR PAP LEXUS 07/17/1997 11 :02 AM VIBRATOR OPERATOR from Last 3 Months or Most Recently Relevant to Health Maintenance Results * Mammo Bilat Screening W Gregory (02/22/2024 4:06 PM CDT) Anatomical Region Laterality Modality Breast Bilateral Mammography 02/25/2024 8:05 AM CDT Impressions 02/25/2024 8:08 AM CDT IMPRESSION: 1.Annual screening mammography is recommended. 2.Based upon the information provided by the patient, she has an elevated lifetime risk for developing breast cancer and meets criteria for supplemental screening with annual breast MRI. Her calculated lifetime risk using Tyrer-Cuzick lifetime risk by density is greater than 20%. Consider referral to the [facility] for formal risk assessment and high risk clinical surveillance. OVERALL FINAL ASSESSMENT: BI-RADS Category 1: Negative. > Interpreting Provider: Mike iVzcarra MD on 02/25/2024 8:08 AM Narrative 02/25/2024 8:08 AM CDT EXAMINATION: BILATERAL DIGITAL SCREENING MAMMOGRAM AND BILATERAL BREAST TOMOSYNTHESIS HISTORY: Screening. COMPARISON: Serial examinations dating back to October 29, 2019. TECHNIQUE: BILATERAL digital breast tomosynthesis (DBT) and synthetic 2D digital mammogram images were obtained (bilateral craniocaudal and mediolateral oblique projections) including computer aided detection (CAD.) BREAST PARENCHYMAL COMPOSITION:Category C: The breasts are heterogeneously dense which may obscure small masses. MAMMOGRAM FINDINGS: There is no suspicious finding in either breast. Dayron Ambriz MD MAMMO ORDERABLE S * CYTOLOGY SMEAR PAP (07/17/1997 11:02 AM VIBRATOR OPERATOR) Result CASE NUMBER [id number] Comment: ORDERING PHYSICIAN STEPHANY MOISE SPECIMEN TYPE PAP Smear Date 07/16/1997 Procedure Cervical/Endocervical, 1 smear received Specimen Adequacy Satisfactory for Evaluation Categorization Benign Cellular Changes Comment Fungal Organisms Morphologically Consistent with Renetta spp. Inflammation Present. Snomed. 07/22/1997 1336 <1> Mental Health Orderly Carlota Norman. (ASCP) PAP Footnote The PAP smear is only a screening procedure to aid in the detection of cervical cancer and its precursors. It is not a diagnostic procedure and should not be used as the sole means to detect cervical cancer. Both false negative and false positive results have been experienced. MISCELLANEOUS SAMPLES / Unknown 07/17/1997 11:02 AM VIBRATOR OPERATOR 07/17/1997 11:03 AM VIBRATOR OPERATOR Historical Provider LAB - PATHOLOGY/C YTOLOGY ORDERABLES from Last 3 Months or Most Recently Relevant to Health Maintenance Care Teams Sales Project Manager Relationship Specialty Start Date End Date Dayron Ambriz MD [address] [facility] [address] [place] [address] PCP - General Internal Medicine 07/17/17
--- OUTSIDE RECORDS SUMMARY | 2024-06-16 11:22 | XMS_ITS | Patient Health Summary ---
Author Organization [facility] Address [address] [place] [address] Care Team Providers Care Checkroom Attendant Name Role Phone Dayron Ambriz MD Primary Care Provider Note from [facility],non-owned Affiliates and Associated Physician Practices is amultiple site organization consisting of ambulatory clinics and hospital sitesin [place], [place], [place] and [place]. This disclosure is being madepursuant to the Care Everywhere program and may not contain all information available regarding this patient. Last updated 18.[facility] Allergies * Morphine(Other) * Sulfa Drugs(Rash,Fever) -Medium Criticality Medications * Be aware that medications may not be up to date on this document. Alwaysverify current medications with the patient. * budesonide-formoterol (SYMBICORT) 160-4.5 MCG/ACT inhaler Symbicort 160 mcg-4.5 mcg/actuation HFA aerosol inhaler * albuterol (PROVENTIL;VENTOLIN) (2.5 MG/3ML) 0.083% nebulizer solution(Started 09/04/2018) inhale 3 milliliter (2.5MG) by nebulization route every 4-6 hours as needed * albuterol HFA (VENTOLIN HFA) 108 (90 Base) MCG/ACT inhaler(Started 09/04/2018) every 4 hours * ALPRAZolam (XANAX) 0.25 MG tablet alprazolam 0.25 mg tablet * Cholecalciferol (D-5000) 5000 units(Started 09/08/2016) * fluticasone propionate (FLONASE) 50 MCG/ACT nasal spray(Started 09/04/2018) [place] 2 sprays into the nose every 24 hours * hydroCHLOROthiazide (HYDRODIURIL) 25 MG tablet Take by mouth every 24 hours * montelukast (SINGULAIR) 10 MG tablet(Started 09/04/2018) montelukast 10 mg tablet * nebivolol (BYSTOLIC) 10 MG tablet Take by mouth every 24 hours * omeprazole (PRILOSEC) 40 MG capsule omeprazole 40 mg capsule,delayed release * famotidine (PEPCID) 20 MG tablet Take 20 mg by mouth at bedtime Social History Tobacco Use Types Packs/Day Years [...] Mass Index 34.46 02/22/2024 3:55 PM CDT Procedures * MAMMO BILAT SCREENING W GREGORY(Performed 02/22/2024) Performed for Screening mammogram for breast cancer * MAMMO BILAT SCREENING W GREGORY(Performed 12/22/2022) Performed for Visit for screening mammogram * MAMMO BILAT SCREENING W GREGORY(Performed 12/16/2021) Performed for Visit for screening mammogram * MAMMO BILAT SCREENING W GREGORY(Performed 12/14/2020) Performed for Visit for screening mammogram * MAMMO BILAT SCREENING(Performed 10/29/2019) Performed for Visit for screening mammogram * TX BREATH HYDROGEN OR METHANE TEST(Performed 02/05/2019) Performed for Abdominal pain, unspecified abdominal location, Bloating * MAMMO BILAT SCREENING(Performed 07/24/2018) Performed for Visit for screening mammogram * MAMMO BILAT SCREENING(Performed 07/17/2017) Performed for Visit for screening mammogram * MAMMO BILAT SCREENING(Performed 07/04/2016) Performed for Visit for screening mammogram * IMAGING/RADIOLOGY/XRAY RESULTS ORDER(Performed 02/13/2015) * US BREAST LEFT LTD(Performed 02/05/2015) Performed for Lump or mass in breast * MAMMO BILAT DIAGNOSTIC(Performed 02/05/2015) Performed for Lump or mass in breast * CYTOLOGY SMEAR PAP(Performed 07/17/1997) * CYTOLOGY SMEAR PAP(Performed 05/14/1996) Results * Mammo Bilat Screening W Gregory (02/22/2024 4:06 PM CDT) Only the most recent of4 resultswithin the time period is included. Anatomical Region Laterality Modality Breast Bilateral Mammography [...] greater than 20%. Consider referral to the [facility] for formal risk assessment and high risk clinical surveillance. OVERALL FINAL ASSESSMENT: BI-RADS Category 1: Negative. > Interpreting Provider: Mike Vizcarra MD on 02/25/2024 8:08 AM Narrative 02/25/2024 [...] is no suspicious finding in either breast. Murtuza H Bahrainwala MD MAMMO ORDERABLE S * ADALGISA SCREENING DIGITAL IMAGE BILATERAL G0202 (10/29/2019 3:17 PM CDT) Only the most recent of4 resultswithin the time period is included. Anatomical Region Laterality Modality Breast Bilateral Mammography 10/30/2019 9:12 AM CDT Impressions 10/30/2019 9:16 AM CDT No mammographic evidence of malignancy in either breast. ASSESSMENT: BIRADS Category 1: Negative mammogram. RECOMMENDATION: Bilateral screening mammogram in one year. Thank you for allowing us to participate in the care of your patient. *Reading Radiologist: Danyelle Ratliff on 10/30/2019 at 9:16 AM Narrative 10/30/2019 9:16 AM CDT EXAMINATION: Digital screening mammogram on 10/29/2019. Low-dose full-field digital breast tomosynthesis examination was performed with synthetic 2D images and 3D acquisitions. Computer assisted detection was utilized. PRIOR: Multiple prior mammograms, most recently 2019 BREAST PARENCHYMAL DENSITY: The breasts are heterogeneously dense, which may obscure small masses. RISK ASSESSMENT CALCULATION: Not performed. FINDINGS: No suspicious masses, areas of architectural distortion or microcalcifications are evident on synthetic 2D mammogram or tomosynthesis images. There has been no significant interval change since the prior examination. Dayron Ambriz MD MAMMO ORDERABLE S * IMAGING/RADIOLOGY/XRAY RESULTS ORDER (02/13/2015 10:01 PM CDT) Anatomical Region Laterality Modality Other Narrative 02/13/2015 10:01 PM CDT Ordered by an unspecified provider. Scanned Document IMAGING * US BREAST LEFT LTD (02/05/2015 12:11 PM CDT) Anatomical Region Laterality Modality Breast Left Ultrasound 02/11/2015 4:01 PM CDT Narrative 02/11/2015 4:09 PM CDT EXAMINATION: Bilateral digital diagnostic mammogram with tomosynthesis and limited left breast ultrasound on 02/05/15 INDICATION: Palpable abnormality left upper outer quadrant FINDINGS: Low dose full field digital tomosynthesis exam was performed with 2D and 3D acquisitions. Computer assisted detection was utilized. Tissue is heterogeneously dense which may obscure small masses. Outside mammograms 2013 and 2012 [facility] are now available. Parenchymal pattern is unchanged. A marker was placed over the area of clinical concern. There is focally dense tissue in this region without change mammographically. Ultrasound of the 1:00 position 6 cm from the nipple demonstrates dense tissue without focal mass. ASSESSMENT: BIRADS Category 2: Benign finding(s).. RECOMMENDATION: Clinical followup regarding palpable abnormality. Bilateral screening mammogram in one year. Thank you for allowing us to participate in the care of your patient. [facility] utilizes [employer] as a reminder system to notify patients of their next recommended mammogram. Procedure Note Dahiana Ratliff MD - 02/11/2015 EXAMINATION: Bilateral digital diagnostic mammogram with tomosynthesis and limited left breast ultrasound on 02/05/15 INDICATION: Palpable abnormality left upper outer quadrant FINDINGS: Low dose full field digital tomosynthesis exam was performed with 2D and 3D acquisitions. Computer assisted detection was utilized. Tissue is heterogeneously dense which may obscure small masses. Outside mammograms 2013 and 2012 [facility] are now available. Parenchymal pattern is unchanged. A marker was placed over the area of clinical concern. There is focally dense tissue in this region without change mammographically. Ultrasound of the 1:00 position 6 cm from the nipple demonstrates dense tissue without focal mass. ASSESSMENT: BIRADS Category 2: Benign finding(s).. RECOMMENDATION: Clinical followup regarding palpable abnormality. Bilateral screening mammogram in one year. Thank you for allowing us to participate in the care of your patient. [facility] utilizes [employer] as a reminder system to notify patients of their next recommended mammogram. Chela Ruvalcaba DO US ORDERABLES * ADALGISA DIAG DIRECT DIG IMAGE BILATERAL G0204 (02/05/2015 11:46 AM CDT) Anatomical Region Laterality Modality Bilateral Mammography 02/11/2015 4:01 PM CDT Narrative 02/11/2015 4:09 PM CDT EXAMINATION: Bilateral digital diagnostic mammogram with tomosynthesis and limited left breast ultrasound on 02/05/15 INDICATION: Palpable abnormality left upper outer quadrant FINDINGS: Low dose full field digital tomosynthesis exam was performed with 2D and 3D acquisitions. Computer assisted detection was utilized. Tissue is heterogeneously dense which may obscure small masses. Outside mammograms 2013 and 2012 [facility] are now available. Parenchymal pattern is unchanged. A marker was placed over the area of clinical concern. There is focally dense tissue in this region without change mammographically. Ultrasound of the 1:00 position 6 cm from the nipple demonstrates dense tissue without focal mass. ASSESSMENT: BIRADS Category 2: Benign finding(s).. RECOMMENDATION: Clinical followup regarding palpable abnormality. Bilateral screening mammogram in one year. Thank you for allowing us to participate in the care of your patient. [facility] utilizes [employer] as a reminder system to notify patients of their next recommended mammogram. Chela Ruvalcaba DO MAMMO ORDERABLES * CYTOLOGY SMEAR PAP (07/17/1997 11:02 AM FACILITY MAINTENANCE TECHNICIAN) Only the most recent of2 resultswithin the time period is included. Result CASE NUMBER [id number] Comment: ORDERING PHYSICIAN STEPHANY MOISE SPECIMEN TYPE PAP Smear Date 07/16/1997 Procedure Cervical/Endocervical, 1 smear received Specimen Adequacy Satisfactory for Evaluation Categorization Benign Cellular Changes Comment Fungal Organisms Morphologically Consistent with Renetta spp. Inflammation Present. Snomed. 07/22/1997 1336 <1> Finishing Frame Runner Nevaeh Norman (ASCP) PAP Footnote The PAP smear is only a screening procedure to aid in the detection of cervical cancer and its precursors. It is not a diagnostic procedure and should not be used as the sole means to detect cervical cancer. Both false negative and false positive results have been experienced. MISCELLANEOUS SAMPLES / Unknown 07/17/1997 11:02 AM FACILITY MAINTENANCE TECHNICIAN 07/17/1997 11:03 AM FACILITY MAINTENANCE TECHNICIAN Historical Provider LAB - PATHOLOGY/C YTOLOGY ORDERABLES Care Teams Checkroom Attendant Relationship Specialty Start Date End Date Dayron Ambriz MD [address] [phone] PCP - General Internal Medicine 07/17/17
--- OUTSIDE RECORDS SUMMARY | 2024-06-16 11:22 | XMS_ITS | Patient Health Record ---
Author Organization [facility] Address [id number] [place] [address] [address] [place] [address] Care Team Providers Care Motor Bus Driver Name Role Phone Vikas Mcdonough Unavailable [phone] Esvin Narayanan Unavailable [phone] Reason For Referral No Information Plan Of Treatment No Information Insurance Providers Payer Name Payer Address Payer Phone Subscriber Number Group Number Insured Name Patient Relationship to Insured Coverage Start Date Coverage End Date [place] [employer] [address] [place] [address] [id number] Macrina Soria Self - patient is the insured 0
--- OUTSIDE RECORDS SUMMARY | 2024-06-16 11:22 | XMS_ITS | Clinical Summary ---
Author Organization [facility] Address [address] [place] [address] Care Team Providers Care Surveillance Officer Name Role Phone Dayron Ambriz MD Primary Care Provider Source Comments [facility],non-owned Affiliates and Associated Physician Practices is amultiple site organization consisting of ambulatory clinics and hospital sitesin [place], [place], [place] and [place]. This disclosure is being madepursuant to the Care Everywhere program and may not contain all information available regarding this patient. Last updated 18.[facility] Allergies Active Allergy Reactions Criticality Noted Date [...] fluticasone propionate (FLONASE) 50 MCG/ACT nasal spray [place] 2 sprays into the nose every 24 [...] 20 mg by mouth at bedtime Active Family History Medical History Relation Name Comments None Known Brother Asthma Father Lymphoma Father Hodgekins Cancer - Breast Maternal Aunt 1 None Known Maternal Aunt 2 Cancer - Colon Maternal Grandfather None Known Maternal Grandmother None Known Maternal Uncle Cancer - Breast Mother None Known Paternal Aunt Cancer - Liver Paternal Grandfather None Known Paternal Grandmother Cancer - Other Paternal Uncle 1 brain Relation Name Status Comments Brother Father Maternal Aunt 1 Maternal Aunt 2 Alive Maternal Grandfather Alive Maternal Grandmother Maternal Uncle Alive Mother Paternal Aunt Paternal Grandfather Alive Paternal Grandmother Paternal Uncle 1 Alive Paternal Uncle 2 Alive Social History Tobacco Use Types Packs/Day Years [...] 02/22/2024 3:55 PM CDT Plan of Treatment Health Maintenance Due Date Last Done Comments COLOGUARD (AGES 45-75) - COLON CA SCREENING [address] COLONOGRAPHY - COLON CA SCREENING 1968 FIT - COLON CA SCREENING 1968 FLEX SIG - COLON CA SCREENING 1968 LIPID TESTING 1968 HIV SCREENING 01/21/1983 HEPATITIS C SCREENING 01/17/1986 DTAP/TDAP/TD VACCINES (1 - Tdap) 01/21/1987 HEPATITIS B VACCINE (1 of 3 - 19+ 3-dose series) 01/21/1987 PAP SMEAR 07/17/2000 07/17/1997, 05/14/1996 PNEUMOCOCCAL VACCINE 50+ (1 of 1 - PCV) 01/21/2018 ZOSTER VACCINE (1 of 2) 01/21/2018 COVID-19 VACCINE (5 - season) 2023 02/11/2021, 01/28/2021, 05/11/2020, Additional history exists DEPRESSION SCREENING 04/30/2024 MAMMOGRAM 02/21/2026 02/22/2024, 11/29, 12/16/2021, Additional history exists COLONOSCOPY - COLON CA SCREENING 06/04/2033 06/04/2023 Colorectal Cancer Screening 06/04/2033 INFLUENZA VACCINE Completed 02/13/2024, , 03/03/2019, Additional history exists HIB VACCINE Aged Out No longer eligi ble based on patient's age to complete this topic HPV VACCINE Aged Out No longer eligi ble based on patient's age to complete this topic MENINGOCOCCAL (Group B) VACCINE Aged Out No longer eligible based on patient's age to complete this topic MENINGOCOCCAL VACCINE Aged Out No lu eber eligible based on patient's age to complete this topic Procedures Procedure Name Priority Date/Time Associated Diagnosis Comments MAMMO BILAT SCREENING W GREGORY Routine 02/22/2024 4:06 PM CDT Screening mammogram for breast cancer CYTOLOGY SMEAR PAP LEXUS 07/17/1997 11 :02 AM RANGE EXAMINER from Last 3 Months or Most Recently [...] greater than 20%. Consider referral to the [facility] for formal risk assessment [...] * CYTOLOGY SMEAR PAP (07/17/1997 11:02 AM RANGE EXAMINER) Result CASE NUMBER [id number] Comment: ORDERING PHYSICIAN STEPHANY MOISE SPECIMEN TYPE PAP Smear Date 07/16/1997 Procedure Cervical/Endocervical, 1 smear received Specimen Adequacy Satisfactory for Evaluation Categorization Benign Cellular Changes Comment Fungal Organisms Morphologically Consistent with Renetta spp. Inflammation Present. Snomed. 07/22/1997 1336 <1> Plant Pathologist Nevaeh Norman (ASCP) PAP Footnote The PAP smear is only a screening procedure to aid in the detection of cervical cancer and its precursors. It is not a diagnostic procedure and should not be used as the sole means to detect cervical cancer. Both false negative and false positive results have been experienced. MISCELLANEOUS SAMPLES / Unknown 07/17/1997 11:02 AM RANGE EXAMINER 07/17/1997 11:03 AM RANGE EXAMINER Historical Provider LAB - PATHOLOGY/C YTOLOGY ORDERABLES from Last 3 Months or Most Recently Relevant to Health Maintenance Care Teams Surveillance Officer Relationship Specialty Start Date End Date Dayron Ambriz MD [address] [facility] [address] [place] [phone] PCP - General Internal Medicine 07/17/17
--- OUTSIDE RECORDS SUMMARY | 2024-06-16 11:22 | XMS_ITS | Data Portability ---
Author Organization [place] [facility], Main Office Address [address] [place] [address] Care Team Providers Care Nurse Practitioner Manager Name Role Phone [facility] Pulmonologi Assessment Encounter Date Assessment Date Assessment LastModified by Organization Details LastModified Time 12/13/2022 12/13/2022 01/30/2022: TG 165 HGB 11.9 Not available 12/12/2022 18:31:44 06/27/2023 06/27/2023 01/30/2022: TG 165 HGB 11.9 06/23/2023: [place] ER Trop I <0.012 06/25/2023: AST/ALT 104/82 Not available 06/27/2023 09:20:27 12/24/2023 12/24/2023 01/30/2022: TG 165 HGB 11.9 06/23/2023: [place] ER Trop I <0.012 06/25/2023: AST/ALT 104/82 12/19/2023: K 3.3, BUN 20 H/H 11.3/35.8 Not available 12/20/2023 17:42:51 Plan of Treatment Reminders Order Date Submit Date Provider Last Modified By Organization Details Last Modified Time Details Appointments Any 15 2024 03:00P Adelfo carvalho MD Not available Not available Not available Lab magnesium , serum or plasma [address] (Lab), [address], [place], [address], 01/02/2024 09:22:46 lipid panel, serum [address] (Lab), [facility] [address], [place], [address], 12/24/2023 16:36:30 CMP, serum or plasma [address] (Lab), [address] [place] [address] [address], [place], [address], 12/24/2023 16:36:30 CBC w/ auto diff [address] (Lab), [address] [place] [address] [address], [place], [address], 12/24/2023 16:36:31 TSH + free T4, serum [address] (Lab), [address] [place] [address] [address], [place], [address], 12/24/2023 16:36:31 vitamin D, 25-hydrox y, total, serum [address] (Lab), [address] [place] [address] [address], [place], [address], 12/24/2023 16:36:30 potassium , serum or plasma 2023 024 [facility] ([facility]), [address] [place] [address] [address], [place], [address], 01/02/2024 11:07:14 magnesium , serum or plasma 2023 024 [facility] (Lab), [address] [place] [address] [address], [place], [address], 07/03/2023 23:20:03 lipid panel, serum [address] (Lab), [address] [place] [address] [address], [place], [address], 01/02/2024 09:22:36 CMP, serum or plasma 2023 024 [facility] (Lab), [address] [place] [address] [address], [place], [address], 12/20/2023 17:46:09 CBC w/ auto diff [address] (Lab), [address] [place] [address] [address], [place], [address], 01/02/2024 09:22:36 TSH + free T4, serum [address] (Lab), [address] [place] [address] [address], [place], [address], 12/24/2023 15:44:23 vitamin D, 25-hydrox y, total, serum [address] (Lab), [address] [place] [address] [address], [place], [address], 12/24/2023 15:44:23 potassium , serum or plasma [address] (Lab), [address] [place] [address] [address], [place], [address], 01/02/2024 09:22:36 lipid panel, serum 2022 023 [facility] (Lab), [address] [place] [address] [address], [place], [address], 12/15/2022 07:34:17 CMP, serum or plasma 2022 023 [facility] (Lab), [address] [place] [address] [address], [place], [address], 12/15/2022 07:34:17 CBC w/ auto diff 2022 023 [facility] (Lab), [address] [place] [address] [address], [place], [address], 12/15/2022 07:34:17 TSH + free T4, serum [address] (Lab), [address], [place], [address], 08/01/2023 08:40:24 vitamin D, 25-hydrox y, total, serum [address] (Lab), [address] [facility] [address], [place], [address], 08/01/2023 08:40:24 Referral cardiolog ist referral 2023 024 [email or web address] Nelson Vivar, [address] [place] [address] [address], [place], [address], 01/21/2024 09:20:56 gynecolog ist referral 2023 024 LARRY Valenzuela MD, [address] [place] [address] [address], [place], [address], 12/24/2023 16:41:17 vascular surgeon referral 2023 024 [place], [address], [address], [place], [address], 12/24/2023 16:39:19 pulmonolo gist referral 2023 024 LUKE Not available 05/24/2024 08:31:40 gastroent erologist referral 2023 024 [place] [address] Tracy Jimenez MD, [address], [address], [place], [address], 01/21/2024 09:20:55 cardiolog ist referral 2023 024 marichuy Vivar, [address] [place] [address] [address], [place], [address], 07/25/2023 08:39:25 gynecolog ist referral 2023 024 [email or web address] Valenzuela MD, [address] [place] [address] [address], [place], [address], 01/21/2024 09:20:23 vascular surgeon referral 2023 024 [email or web address] [place], [address], [address], [place], [address], 01/21/2024 09:20:24 pulmonolo gist referral 2023 024 [email or web address] Not available 01/21/2024 09:20:23 gastroent erologist referral 2023 024 [email or web address] Tracy Jimenez MD, [address], [address], [place], [address], 07/25/2023 08:38:58 cardiolog ist referral 2022 023 [email or web address] Wesley Garnica, [address] [facility], [facility] [address], [place], [address], 02/02/2023 17:08:53 gynecolog ist referral 2022 023 [email or web address] Manjeet Valenzuela MD, [address] [facility] [address], [place], [address], 02/02/2023 17:08:06 pulmonolo gist referral 2022 023 [email or web address] Stephen Hand MD, [address], [address], [place], [address], 02/02/2023 17:09:07 gastroent erologist referral 2022 023 [email or web address] Tracy Jimenez MD, [address], [address], [place], [address], 02/02/2023 17:08:39 Procedures None recorded. Surgeries None recorded. Imaging MAMMO, screening , digital, bilateral 2023 024 [email or web address] Not available 01/14/2024 14:09:46 DEXA, axial skeleton 2023 024 ATHENAX [facility], [address], [place], [address], 12/24/2023 16:38:33 MAMMO, screening , digital, bilateral 2023 024 Not available 07/11/2023 08:50:36 DEXA, axial skeleton [email or web address] [place] [address], [address], [place], [address], 12/24/2023 15:44:48 MAMMO, screening , digital, bilateral 2022 023 LUKE Not available 12/22/2022 13:11:39 DEXA, axial skeleton [email or web address] [place] [address], [address] [place], [address], 08/01/2023 08:42:23 Medication Orders None recorded. Patient TargetsNo targets recorded. Patient InstructionsNo instructions recorded. Reason for Referral Miller Supervisor Referral for Gy necologic examination Referring Physician: Dayron Ambriz Internal Medicine, Encounter Date: 12/13/2022 Cleat Maker Referral for Colitis Referring Physician: Dayron Ambriz Internal Medicine, Encounter Date: 12/13/2022 Tinware Lithograph Press Operator Referral for Thompson praventricular tachycardia Referring Physician: Dayron Ambriz Internal Medicine, Encounter Date: 12/13/2022 Prototype Fabricator Referral for A sthma Referring Physician: Dayron Ambriz Internal Medicine, Encounter Date: 12/13/2022 Miller Supervisor Referral for Gy necologic examination Referring Physician: Dayron Ambriz Internal Medicine, Encounter Date: 06/27/2023 Cleat Maker Referral for Colitis Referring Physician: Dayron Ambriz Internal Medicine, Encounter Date: 06/27/2023 Tinware Lithograph Press Operator Referral for Thompson praventricular tachycardia Referring Physician: Dayron Ambriz Internal Medicine, Encounter Date: 06/27/2023 Prototype Fabricator Referral for A sthma Referring Physician: Dayron Ambriz Internal Medicine, Encounter Date: 06/27/2023 Vascular Surgeon Referral fo r Varicose veins of lower extremity Referring Physician: Dayron Ambriz Internal Medicine, Encounter Date: 06/27/2023 Miller Supervisor Referral for Gy necologic examination Referring Physician: Dayron Ambriz Internal Medicine, Encounter Date: 12/24/2023 Cleat Maker Referral for Colitis Referring Physician: Ion Perez, Encounter Date: 12/24/2023 Tinware Lithograph Press Operator Referral for Thompson praventricular tachycardia Referring Physician: Dayron Ambriz Internal Medicine, Encounter Date: 12/24/2023 Prototype Fabricator Referral for A sthma Referring Physician: Dayron Ambriz Internal Medicine, Encounter Date: 12/24/2023 Vascular Surgeon Referral fo r Varicose veins of lower extremity Referring Physician: Ion Perez, Encounter Date: 12/24/2023 Results Created Date Observation Date Name Description Value Unit Range Abnormal Flag Note LastModifiedBy Organization Detail LastModifiedTime 12/17/19 22 12/16/2021 MAMMO , scree chente, digit al, bilat eral No observ ation record ed. [id number] [facility] Scheduling [address] [place], [address], 06/28/2022 03:29:31 12/23/19 23 12/22/2022 MAMMO matte chente, digit al, bilat eral No observ ation record ed. [email or web address] [facility] Scheduling [address] [place], [address], 12/27/2022 15:13:06 05/25/19 24 05/25/2023 US, thyro id No observ ation record ed. [email or web address] [place] [address] [address] [facility], [place], [address], 07/16/2023 11:10:41 06/23/19 24 06/22/2023 imagi ng/di agnos tic resul t No observ ation record ed. [address], [place], [address], 06/23/2023 01:14:29 07/05/1907/04/2023 imagi ng/di agnos tic resul t No observ ation record ed. [address] [address], [place], [address], 07/05/2023 14:38:44 07/12/19 24 07/12/2023 fine needl e aspir ation , thyro id (PROC ) No observ ation record ed. [address] [address], [place], [address], 07/12/2023 16:11:44 07/16/19 24 07/16/2023 imagi ng/di agnos tic resul t No observ ation record ed. [facility] [address] [place], [address], 07/16/2023 12:02:43 02/16/20 24 02/15/2024 US, thyro id No observ ation record ed. [address] [address], [place], [address], 02/16/2024 09:14:05 02/25/20 24 02/22/2024 imagi ng/di agnos tic resul t No observ ation record ed. [email or web address] Infectious Disease [address] [place] [address] , [place], [address], 02/25/2024 09:13:33 Result Notes None recorded. Problems Name Problem SNOMED Code Status Onset Date Resolution Date Notes Provider Name and Address Organization Details Recorded Time Gastroesophag eal reflux disease without esophagitis 058690613 Active 2022 Dayron pillai MD [address], [address], [place], [address] , [facility] 3 18:32:21 Anxiety 25897120 Active 2022 Dayron pillai MD [address], [address], [place], [address] , [facility] 18:32:33 Skin lesion 16941677 Active 2022 Dayron pillai MD [address], [address], [place], [address] , [facility] 18:32:39 Anemia 505228292 Active 2022 Dayron pillai MD [address], [address], [place], [address] , [facility] 18:32:44 Retinal disorder 84779808 Active 2022 Dayron pillai MD [address], [place], [address] , [facility] 3 18:32:57 Allergic rhinitis 97962107 Active 2022 Dayron pillai MD [address], [address], [place], [address] , [facility] 18:33:11 Steatosis of liver 583297363 Active 2022 Dayron pillai MD [address], [place], [address] , [facility] 3 18:33:18 Vitamin D deficiency 79502039 Active 2022 Dayron pillai MD [address], [address], [place], [address] , [facility] [employer] [facility] 3 18:33:23 Low back pain 739242611 Active 2022 Dayron pillai MD [address], [address], [place], [address] , [facility] [employer] [facility] [employer] [facility] 3 18:33:30 Hypomagnesemi a 626161788 Active 2022 Dayron pillai MD [address], [address], [place], [address] , [facility] [employer] [facility] 3 18:33:39 Bilateral hearing loss 13199602 Active 2022 Dayron pillai MD [address], [place], [address] , [facility] [employer] [facility] 3 18:34:05 Varicose veins of lower extremity 78091041 Active 2022 Dayron pillai MD [address], [place], [address] , [facility] [employer] [facility] 3 18:34:45 Hearing loss 13352541 Active 2022 Not Available [facility] 3 03:08:22 Asthma 667710892 Active Not Available [facility] 3 03:08:22 Anxiety state 589579453 Active Not Available [facility] 3 03:08:22 Gastroesophag eal reflux disease 339948520 Active Not Available [facility] 3 03:08:22 Hypokalemia 10009051 Active 2022 Not Available [facility] 3 03:08:22 Hyperlipidemi a 52938697 Active 2021 Not Available [facility] 3 03:08:22 Essential hypertension 10382136 Active Not Available [facility] 3 03:08:23 Colitis 33040175 Active 2018 Not Available [facility] 3 03:08:23 Supraventricu lar tachycardia 1898735 Active Not Available [facility] 3 03:08:23 Thyroid nodule 702717388 Active 2023 Katalina Arndt RN null, [facility] 4 16:38:00 Mammography abnormal 662764154 Active 2023 Aurea Dial MA null, [facility] 4 17:32:19 Varicose veins of lower extremity 30583169 Active 2023 Dayron pillai MD [address] [place] [address], [address] , [facility] 4 16:41:24 Obstructive sleep apnea syndrome 76496261 Active 2023 SUE Khan null, [facility] 4 17:03:24 Bilateral hearing loss 79263675 Active 2023 SUE Khan null, [facility] 4 17:01:05 Problem Notes None recorded. Procedures Surgical History Date Name Laterality Status Provider Name and Address Organization Details Recorded Time 07/10/19 Colonoscopy completed Not Available [facility] 06/29/19 02:55:10 section completed Not Available [facility] 06/28/2022 02:55:10 operation on urinary bladder completed Not Available [facility] 06/28/2022 02:55:10 Tonsillectomy completed Not Available [facility] 06/28/2022 02:55:10 other completed Not Available [facility] 04/2022 02:55:10 Imaging Results Imaging Date Name Status LastModified by Organiz ation Details LastModified Time 12/16/2021 MAMMO, screening, digital, bilateral completed [id number] [facility] Scheduling [address] [place], [address], 06/28/2022 03:29:31 12/22/2022 MAMMO, screening, digital, bilateral completed [email or web address] [facility] Scheduling [address] [place], [address], 12/27/2022 15:13:06 05/25/2023 US, thyroid completed [address] [place] [address], [address], 07/16/2023 11:10:41 06/22/2023 imaging/diagno stic result active [address], [address], 06/23/2023 01:14:29 07/04/2023 imaging/diagno stic result active [address] [address], [place], [address], 07/05/2023 14:38:44 07/12/2023 fine needle aspiration, thyroid (PROC) active [address] [address], [place], [address], 07/12/2023 16:11:44 07/16/2023 imaging/diagno stic result active [facility] [address] [place], [address], 07/16/2023 12:02:43 02/15/2024 US, thyroid active [address], [address], 02/16/2024 09:14:05 02/22/2024 imaging/diagno stic result active [facility] [address] [place], [place] [address]Re[place], [place], [address], 02/25/2024 09:13:33 Procedure Notes None recorded. Medical Equipment None Reported. Allergies Allergen ID Allergen Name Allergen Category Reaction Reaction Severity Criticality Documentation Date Start Date Code Code System Note Provider Name and Address Organization Details Recorded Time 5942 Substance with sulfonami de structure and antibacte rial mechanism of action (substanc e) medicatio n rash Not available Not available 06/28/2022 [id number] SNOMED Not Available [facility] 3 03:28:47 Medications Name Sig Start Date Stop Date Status Note LastModified by Organization Details LastModified Time cyclobenz aprine 10 mg tablet Take 1 tablet every day by oral route as needed for 30 days. active Not Available Not Available No t Available atorvasta tin 40 mg tablet TAKE 1 TABLET BY MOUTH EVERY DAY active Not Available Not Available No t Available prednison e 10 mg tablet PLEASE SEE ATTACHED FOR DETAILED DIRECTIO NS 12/23 completed Not Available Not Available Not Available doxycycli ne hyclate 100 mg capsule Take 1 capsule twice a day by oral route for 10 days. active Not Available Not Available No t Available ipratropi um 0.5 mg-albute rol 3 mg (2.5 mg base)/3 mL nebulizat ion soln INHALE [address] OF NEBULIZE R EVERY 4 HOURS NEEDED FOR SHORTNES S OF BREATH OR WHEEZING active Not Available Not Available No t Available azithromy jess 250 mg tablet TAKE 2 TABLETS BY MOUTH TODAY, THEN TAKE 1 TABLET DAILY FOR 4 DAYS DIRECTED 12/23 completed Not Available Not Available Not Available fluconazo le 150 mg tablet Take 1 tablet every day by oral route. 07/20 completed Not Available Not Available Not Available benzonata te 200 mg capsule TAKE 1 CAPSULE BY MOUTH THREE TIMES A DAY NEEDED FOR COUGH 12/23 completed Not Available Not Available Not Available fluconazo le 200 mg tablet 07/20 completed Not Available Not Available Not Available Zantac 300 mg tablet Take 1 tablet every day by oral route at bedtime. 07/20 completed Not Available Not Available Not Available atenolol 25 mg tablet Take 1 tablet every day by oral route. 06/14 completed Not Available Not Available Not Available Nexium 40 mg capsule,d elayed release Take 1 capsule every day by oral route. 02/05 completed stopped by Pulmonol ogist Not Available Not Available Not Available triamcino lone acetonide 0.5 % topical ointment APPLY TOPICALL Y TO AFFECTED AREA(S) TWICE DAILY NEEDED FOR IRRITATI ON active Not Available Not Available No t Available omeprazol e 40 mg capsule,d elayed release TAKE 1 CAPSULE BY MOUTH EVERY DAY active Not Available Not Available No t Available triamcino lone acetonide 0.1 % topical cream 08/07 completed Not Available Not Available Not Available nortripty line 25 mg capsule TAKE 1 CAPSULE BY MOUTH NIGHTLY active Not Available Not Available No t Available alprazola m 0.25 mg tablet TAKE 1 TABLET BY MOUTH TWICE DAILY NEEDED - NO ALCOHOL, NO DRIVING, OR WITH SEDATING MEDS active Not Available Not Available No t Available magnesium oxide 400 mg (241.3 mg magnesium ) tablet TAKE 1 TABLET BY MOUTH EVERY DAY FOR 90 DAYS active Not Available Not Available No t Available cephalexi n 500 mg capsule TAKE 1 CAPSULE BY MOUTH EVERY 6 HOURS 06/27 completed Not Available Not Available Not Available pantopraz ole 40 mg tablet,de layed release TAKE 1 TABLET BY MOUTH 2 TIMES A DAY BEFORE BREAKFAS T AND DINNER. active Not Available Not Available No t Available nortripty line 10 mg capsule TAKE 1 CAPSULE (10 MG TOTAL) BY MOUTH NIGHTLY. active Not Available Not Available No t Available oseltamiv ir 75 mg capsule Take 1 capsule twice a day by oral route for 7 days. 07/20 completed Not Available Not Available Not Available hyoscyami ne 0.125 mg sublingua l tablet PRN before meals 07/15 completed Not Available Not Available Not Available Vivelle-D ot 0.0375 mg/24 hr transderm al patch Apply 1 patch twice a week by transder mal route. 2012 active Not Available Not Available Not Avai lable sertralin e 25 mg tablet Take 1 tablet every day by oral route. active Not Available Not Available No t Available omeprazol e 20 mg capsule,d elayed release 1 TAB daily 07/15 completed Not Available Not Available Not Available monteluka st 10 mg tablet TAKE 1 TABLET BY MOUTH EVERYDAY AT BEDTIME active Not Available Not Available No t Available hydrochlo rothiazid e 25 mg tablet TAKE 2 TABLETS BY MOUTH EVERY DAY active Not Available Not Available No t Available budesonid e DR - ER 3 mg capsule,d elayed,ex tended release TAKE 3 CAPSULES BY MOUTH EVERY MORNING active Not Available Not Available No t Available Nasonex 50 mcg/actua tion [place] 2 sprays every day by intranas al route. 09/10 completed Not Available Not Available Not Available estradiol 0.01% (0.1 mg/gram) vaginal cream 05/23 completed Not Available Not Available Not Available albuterol sulfate HFA 90 mcg/actua tion aerosol inhaler INHALE 1 TO 2 PUFFS BY MOUTH EVERY 4 TO 6 HOURS NEEDED FOR SHORTNES S OF BREATH OR WHEEZING active Not Available Not Available No t Available ondansetr on 4 mg disintegr ating tablet DISSOLVE 1 TABLET BY MOUTH EVERY 8 HOURS active Not Available Not Available No t Available sertralin e 50 mg tablet PLEASE SEE ATTACHED FOR DETAILED DIRECTIO NS active Not Available Not Available No t Available dicyclomi ne 10 mg capsule TAKE 1 CAPSULE BY MOUTH 3 TIMES A DAY. active Not Available Not Available No t Available nortripty line 50 mg capsule 06/14 completed Not Available Not Available Not Available amoxicill in 875 mg-potass ium clavulana te 125 mg tablet 07/20 completed Not Available Not Available Not Available tobramyci n 0.3 %-dexamet hasone 0.1 % eye drops,karyn pension INSTILL 1 DROP INTO LEFT EYE THREE TIMES A DAY - SHAKE WELL 12/13 completed Not Available Not Available Not Available metoprolo l tartrate 25 mg tablet take 1/2 tablet daily 06/14 completed Not Available Not Available Not Available Asmanex Twisthale r 220 mcg/actua tion(120 doses) breath activated inhlr Inhale 1 puff twice a day by inhalati on route. 09/10 completed Not Available Not Available Not Available Symbicort 160 mcg-4.5 mcg/actua tion HFA aerosol inhaler INHALE 2 PUFFS BY MOUTH EVERY 12 HOURS, RINSE MOUTH AND SPIT AFTER EACH USE active Not Available Not Available No t Available Bystolic 5 mg tablet Take 1 tablet every day by oral route in the morning. 03/08 completed takes Bystolic 10mg aslso Not Available Not Available Not Available nebivolol 10 mg tablet TAKE 1 TABLET BY MOUTH EVERY DAY active Not Available Not Available No t Available Align (B.infant is) TK 1T PO QD 2020 active Not Available Not Available Not Avai lable Gavilyte- C 240 gram-22.7 2 gram-6.72 gram-5.84 gram oral solution 08/07 completed Not Available Not Available Not Available Dexilant 60 mg capsule, delayed release Take 1 capsule every day by oral route as directed for 56 days. 01/20 completed Not Available Not Available Not Available sodium,po tassium,m ag sulfates 17.5 gram-3.13 gram-1.6 gram oral soln PLEASE SEE ATTACHED FOR DETAILED DIRECTIO NS 12/23 completed Not Available Not Available Not Available potassium chloride ER 20 mEq tablet,ex tended release TAKE 2 TABLETS BY MOUTH EVERY DAY FOR 5 DAYS active Not Available Not Available No t Available vitamin D3 125 mcg (5,000 unit)-fol ic acid 1 mg tablet Take 1 tablet every day by oral route. 2018 active Not Available Not Available Not Avai lable magnesium 400 mg (as magnesium oxide) tablet Take 1 tablet every day by oral route for 90 days. 11/22 completed Not Available Not Available Not Available Paxlovid 300 mg (150 mg x 2)-100 mg tablets in a dose pack TAKE 2 TABLETS OF NIRMATRE LVIR AND 1 TABLET OF RITONAVI R TOGETHER 2 TIMES A DAY FOR 5 DAYS 06/27 completed Not Available Not Available Not Available Vitals Date Recorded Body height Body mass index (BMI) Body weight Body temperature Heart rate Oxygen saturation Oxygen saturation in Arterial blood by Pulse oximetry Systolic blood pressure Diastolic blood pressure Provider Name and Address Organization Details Last Updated DateTime 3 173.99 cm 33.9 kg/m2 472891. 88 g 97.6 [degF] 88 /min 98 % 98 % 124 mm[Hg] 82 mm[Hg] Jael Mojica MA [employer] 3 16:01:11 Date Recorded Body height Body mass index (BMI) Body weight Body temperature Heart rate Systolic blood pressure Diastolic blood pressure Provider Name and Address Organization Details Last Updated DateTime 4 173.99 cm 33.3 kg/m2 247772. 51 g 97.1 [degF] 78 /min 126 mm[Hg] 70 mm[Hg] SUE Khan [employer] 4 16:11:35 Date Recorded Body height Body mass index (BMI) Body weight Body temperature Heart rate Systolic blood pressure Diastolic blood pressure Provider Name and Address Organization Details Last Updated DateTime 4 173.99 cm 34.5 kg/m2 516600. 25 g 97.6 [degF] 78 /min 118 mm[Hg] 80 mm[Hg] SUE Khan [place] [facility] 4 16:07:54 Date Recorded Body mass index (BMI) Body height Body height Heart rate Body temperature Body weight Systolic blood pressure Diastolic blood pressure Provider Name and Address Organization Details Last Updated DateTime 3 33.7 kg/m2 173.99 cm 173.99 cm 78 /min 97.8 [degF] 187000. 28 g 122 mm[Hg] 70 mm[Hg] Not Available [facility] 3 03:05:52 Social History Question Answer Notes LastModified by Organization Details LastModified Time Tobacco Smoking Status Never Smoker Not Available [facility] 06/28/2022 02:53:25 Do You Have An Advance Directive? No MIGRATION.0301 [id number] Information not available 06/28/2022 What Is Your Level Of Alcohol Consumption? Occasional MIGRATION.0301 [id number] Information not available 06/28/2022 Do You Wear A Helmet When Biking? Yes MIGRATION.0301 [id number] Information not available 06/28/2022 What Is Your Level Of Caffeine Consumption? Occasional MIGRATION.0301 [id number] Information not available 06/28/2022 How Much Tobacco Do You Chew? None MIGRATION.0301 024866 Information not available 06/28/2022 In The 14 Days Before Symptom Onset, Have You Had Close Contact With A Laboratory-confi rmed COVID-19 While That Case Was Ill? No MIGRATION.0301 [id number] Information not available 06/28/2022 In The 14 Days Before Symptom Onset, Have You Had Close Contact With A Person Who Is Under Investigation For COVID-19 While That Person Was Ill? No MIGRATION.0301 [id number] Information not available 06/28/2022 What Type Of Diet Are You Following? REGULAR GI Problems , On Low Dairy Diet MIGRATION.0301 634992 Information not available 06/28/2022 Which Illicit Or Recreational Drugs Have You Used? None MIGRATION.0301 023175 Information not available 06/28/2022 Do You Or Have You Ever Used E-cigarettes Or Vape? Never Used Electronic Cigarettes MIGRATION.0301 [id number] Information not available 06/28/2022 What Is The Highest Grade Or Level Of School You Have Completed Or The Highest Degree You Have Received? [id number] MIGRATION.0301 337354 Information not available 06/28/2022 What Is Your Occupation? Nurse MIGRATION.0301 [id number] Information not available 06/28/2022 Have There Been Any Changes To Your Family Or Social Situation? No MIGRATION.0301 468211 Information not available 06/28/2022 What Is The Fluoride Status Of Your Home? Unknown MIGRATION.0301 810873 Information not available 06/28/2022 Are There Any Guns Present In Your Home? Yes MIGRATION.0301 [id number] Information not available 06/28/2022 Do You Use Insect Repellent Routinely? No MIGRATION.0301 253676 Information not available 06/28/2022 Where Do You Live? [place]House MIGRATION.0301 912802 Information not available 06/28/2022 Do You Have A Medical Power Of Shellfish Shucker? No MIGRATION.0301 092726 Information not available 06/28/2022 What Was The Date Of Your Most Recent Tobacco Screening? 12/24/2023 [email or web address] Information not available 12/24/2023 Do You Have Any Pets? Yes MIGRATION.0301 [id number] Information not available 06/28/2022 What Is Your Relationship Status? MIGRATION.0301 175396 Information not available 06/28/2022 Do You Use Your Seat Belt Or Car Seat Routinely? Yes MIGRATION.0301 115602 Information not available 06/28/2022 Do You Have Smoke And Carbon Monoxide Detectors In Your Home? Yes MIGRATION.0301 883994 Information not available 06/28/2022 Are You Passively Exposed To Smoke? No MIGRATION.0301 316929 Information not available 06/28/2022 Do You Or Have You Ever Used Smokeless Tobacco? Never Used Smokeless Tobacco MIGRATION.0301 978759 Information not available 06/28/2022 Are There Any Smokers In Your House? No MIGRATION.0301 692455 Information not available 06/28/2022 How Much Tobacco Do You Smoke? No MIGRATION.0301 066696 Information not available 06/28/2022 What Types Of Sporting Activities Do You Participate In? None MIGRATION.0301 264256 Information not available 06/28/2022 Do You Feel Stressed (tense, Restless, Nervous, Or Anxious, Or Unable To Sleep At Night)? [id number] MIGRATION.0301 689703 Information not available 06/28/2022 Do You Use Any Illicit Or Recreational Drugs? No MIGRATION.0301 994261 Information not available 06/28/2022 Do You Use Sunscreen Routinely? Yes MIGRATION.030 064108 Information not available 06/28/2022 Has Tobacco Cessation Counseling Been Provided? No N/a MIGRATION.030 174036 Information not available 06/28/2022 How Many Years Have You Smoked Tobacco? 0 MIGRATION.030 577709 Information not available 06/28/2022 Have You Recently Traveled Abroad? No MIGRATION.030 222447 Information not available 06/28/2022 Do You Have Any Dietary Restrictions? No MIGRATION.030 596026 Information not available 06/28/2022 Do You Or Have You Ever Used Any Other Forms Of Tobacco Or Nicotine? No MIGRATION.030 414591 Information not available 06/28/2022 Sex: Female Functional Status Question Answer Note LastModified by Organizat ion Details LastModified Time What is your exercise level? Moderate [id number] Information not available 06/28/2022 Mental Status None recorded. Family History Relationship Description Onset Age of this Age Resolved Age Notes LastModified by Organization Details LastModified Time Father No current problems or disability MIGRATION.097 [id number] Not available 06/28/2022 02:55:21 Father Asthma MIGRATION.778 [id number] Not available 06/28/2022 02:55:21 Father Malignant lymphoma clinic al MIGRATION.401 [id number] Not available 06/28/2022 02:55:21 Father Gastroesopha geal reflux disease MIGRATION.579 [id number] Not available 06/28/2022 02:55:21 Mother No current problems or disability MIGRATION.631 [id number] Not available 06/28/2022 02:55:21 Mother Carcinoma of breast MIGRATION.230 [id number] Not available 06/28/2022 02:55:21 Mother Irritable bowel syndrome MIGRATION.449 [id number] Not available 06/28/2022 02:55:21 Medical History Condition Response NERVE DISEASE N BLINDNESS N RHEUMATIC FEVER N KIDNEY STONES N BLADDER PROBLEMS N MRSA N OTHER # 1 N POLIO N LUNG DISEASE/DISORDER N HISTORY OF DRUG ABUSE N COPD N RADIATION / CHEMOTHERAPY N Other # 2 N BLOOD DISEASES N EAR OR HEARING PROBLEMS N MUMPS N SHINGLES N BOWEL PROBLEMS Y DEPRESSION (INCLUDING POST ) N STROKE/TIA N ULCERS N BENIGN PROSTATIC HYPERPLASIA N MEASLES N HYPOTENSION N MYOCARDIAL INFARCTION N OBESITY N GERD/NAUSEA Y ANEURYSM N URINARY/BLADDER/KIDNEY PROBLEMS N CORONARY ARTERY DISEASE (CAD) N ADDICTION CONCERNS N ENDOMETRIOSIS N Impotence N USE OF BLOOD THINNERS N SKIN PROBLEMS N GASTROINTESTINAL DISORDER N PERIPHERAL VASCULAR DISEASE N MUSCLE,JOINT OR BONE PROBLEMS N GASTROINTESTINAL BLEEDING N BLOOD CLOTS N ASTHMA Y CATARACTS N ERECTILE DYSFUNCTION N VARICOSITIES N GI PROBLEMS N Low Testosterone N INFERTILITY N AIDS/HIV N CHEMOTHERAPY / RADIATION N LIVER DISEASE N MALE HYPOGONADISM N HYPERTENSION Y Deficiency Y TOURETTE'S N ANXIETY DISORDER Y BLOOD TRANSFUSION N ANEMIA/BLOOD DISORDER Y CHRONIC EAR INFECTIONS N BRONCHITIS N TUBERCULOSIS N GLAUCOMA N FOOT PROBLEM N DIVERTICULITIS N CHICKENPOX N SLEEP APNEA N INFECTIOUS DISEASE N HEART ARRHYTHMIA N PROSTATE N INSOMNIA N HIGH CHOLESTEROL / HYPERLIPIDEMIA Y HYPERTHYROIDISM N EYE PROBLEMS Y EDEMA N CHRONIC PAIN SYNDROME N HYPOTHYROIDISM N CAROTID BLOCKAGE N CONSTIPATION N BACK / NECK PROBLEMS N ATHEROSCLEROSIS N BREAST PROBLEMS N DIALYSIS N ECZEMA N OSTEOPOROSIS N ARTHRITIS N APPENDICITIS N DIABETES, TYPE N BAD TEETH N ENT N HEARTBURN / REFLUX Y AUTISM SPECTRUM DISORDER (ASD) N HEPATITIS / LIVER DISEASE N GOUT N SLEEP DISORDER N ALZHEIMER'S DISEASE N Brain Problems N HERPES N DEMENTIA N HEADACHES/MIGRAINES N SEIZURES/EPILEPSY N VASCULAR DISEASE N PACEMAKER N Blood Disorder N DIZZINESS N HEART DISEASE/HEART PROBLEMS N KIDNEY DISEASE N MULTIPLE SCLEROSIS N CARDIAC ARRHYTHMIA Y CANCER: SPECIFY N ATRIAL FIBRILLATION N Gall Stones N PULMONARY EMBOLISM N AUTOIMMUNE DISEASE N Gynecological History Statement/Question Response Date of Last Mammogram 08/10/2014 Date of Last Colonoscopy Obstetrics History GPAL:G 0 P 0 0 0 0 Immunizations Vaccine Type Date Status Note Provider Nam e and Address Organization Details Recorded Time Influenza, split virus, quadrivalent, preservative 1 completed Not Available [facility] 06/28/2022 03:28:34 COVID-19, mRNA, LNP-S, PF, 30 mcg/0.3 mL dose 1 completed Not Available [facility] 06/28/2022 03:28:34 COVID-19, mRNA, LNP-S, PF, 100 mcg/0.5mL dose or 50 mcg/0.25mL dose 1 completed Not Available [facility] 06/28/2022 03:28:35 COVID-19, mRNA, LNP-S, PF, 100 mcg/0.5mL dose or 50 mcg/0.25mL dose 0 completed Not Available [facility] 06/28/2022 03:28:35 Influenza, split virus, trivalent, preservative 5 completed Not Available [facility] 06/28/2022 03:28:35 Influenza, split virus, quadrivalent, preservative 9 completed Not Available [facility] 06/28/2022 03:28:35 influenza, unspecified formulation 8 completed Not Available [facility] 06/28/2022 03:28:35 Influenza, split virus, trivalent, preservative 4 completed Not Available [facility] 06/28/2022 03:28:35 Tdap 7 completed Not Available [facility] 06/28/2022 03:28:35 Past Encounters Encounter ID Performer Location Encounter Start Date Encounter Closed Date Diagnosis/Indication Diagnosis SNOMED-CT Code Diagnosis ICD10 Code Diagnosis Note [id number] [facility] [address], [facility] [address] [place] [address] 07/15/2020 00:00:00 07/15/2020 16:59:55 [id number] [facility] [address] 11/22/2020 00:00:00 11/22/2020 17:12:49 [id number] [facility] [address] 05/23/2021 00:00:00 05/23/2021 11:40:59 [id number] [facility] [address] 11/28/2021 00:00:00 11/28/2021 12:06:53 [id number] [facility] [place] [address] [facility] [place] [address] 06/14/2022 00:00:00 06/14/2022 18:38:23 [id number] Dayron pillai MD [facility] [place] [address] [place] [address] [place] [address] 12/13/2022 15:52:54 12/13/2022 16:19:33 Screening - NAD 761649912 Z13.9 Dr Jo-Ann nunez 09/04/18, again started on entocort if symptoms still persist would need another c-scope and possible Imuran therapy C-scope: Dr Jo-Ann nunez 07/14/2019 : Tubular adenoma, is to get another c-scope in 12/2019, get a referral to [facility] as per her wishes 04/05/2020 : [facility]: C-scope: Dr Tracy Jimenez MD: 3mm polyp in ascending colon, diverticul osis in sigmoid and in descending colon and the transverse colon, next in 3 years as per history Mammogram: 07/17/17, Neg 9: Neg 020: Neg 021: Neg, [id number]: Neg Dexa: Ordered 07/15/2020 , 11/22/2020 PAP: 12/25/17: Dr Nicolas LINDA, did see her in 01/2020 UTD on yearly flu shotUTD Tdap if not done, 03/07/17UT D on COVID 19 vaccine RTC in 4 monthslabs to be doneER if worseshe did verbalize her understand ing of the above Supraventr icular tachycardia 1046183 I47.1 S/p ablationOn bystolic 10mg dailyOn HCTZ 25mg daily See Dr Pruitt Gastroesop hageal reflux disease without esophagitis 073637715 K21.[address] Jo-Ann nunez 03/13/18 On PPI does well on this Asthma 470315049 J45.[address] Dale Hand, [place], pulmonolog ist, 02/21/2021 , 02/20/2022 On ventolinOn SymbicortO n AAOn singulair Does well Anxiety 83582885 F41.9 On xanax as neededOn sertraline 50mg daily Does well Not suicidal or homicidal Skin lesion 42384855 L98 .9 skin lesionHas had a biopsy of the R shoulder skin lesion by Dr Escobar es well now Anemia 728038521 D64.9 Noting her history of colitisSho uld be on iron and vit c Hyperlipidemia 15454882 E78.5 On atorvastat in 40mg dailyGet labs Retinal disorder 2649777 9 H35.[address]s with Dr Long Colitis 62484654 K52.9 01/03/19: Dr Darwin nunez, f/u again in 2-3 months, to get a breath test, started on prilosec and zantac 02/05/19: Breath test, indicates normal to slightly prolonged small bowel transit 01/13/2020 : Dr Pope Ban fellow for Dr Marino, no plan for surgery, 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 and no plans for surgery, referred to [facility] 03/30/2020 : Dr Ibarra: [facility]: now to get c-scope and egd On nortriptyl ine 25mg daily given by Dr Jimenez, feels that this has really helped Michelle dicyclomin Dajuan protonix Allergic rhinitis 864649 04 J30.9 On singulairO n HHNsOn symbicort Dr Concepcion smalls Steatosis of liver 1007 K76.0 Does wellGet labs Vitamin D deficiency 347 58246 E55.9 Low back pain 233838843 M54.50 Has taken flexerill in the pastNo LBP at the present Can renew Hypomagnesemia 778351771 E83.42 On mag ox OTC Get levels Varicose v eins of lower extremity 38196962 I83.93 Get a referral to Dr Kumar Bilateral hearing loss 57758095 H91.93 Get a hearing test done Hypokalemia 17247378 E87 .6 See case on the labs, repeat the K level Screening mammography 24 439342 Z12.31 Screening for osteoporosis 772185466 Z13.820 Gynecologi c examination 99291788 Z01.206 [id number] Dayron pillai MD [facility] [place] [address] [facility] [place] [address] 06/27/2023 15:55:55 06/27/2023 16:48:47 Screening - NAD 822567670 Z13.9 Dr Jo-Ann nunez 09/04/18, again started on entocort if symptoms still persist would need another c-scope and possible Imuran therapy C-scope: Dr Jo-Ann nunez 07/14/2019 : Tubular adenoma, is to get another c-scope in 12/2019, get a referral to [facility] as per her wishes 04/05/2020 : [facility]: C-scope: Dr Tracy Jimenez MD: 3mm polyp in ascending colon, diverticul osis in sigmoid and in descending colon and the transverse colon, next in 3 years as per history 06/04/2023 : [facility]: C-scope: Tracy Jimenez MD: Ileocecal valve polyp, asc polyp, transv polyp Mammogram: 07/17/17, Neg 9: Neg 020: Neg 021: Neg, : Neg Dexa: Ordered 07/15/2020 , 11/22/2020 PAP: 12/25/17: Dr Nicolas LINDA, did see her in 01/2020 UTD on yearly flu shotUTD Tdap if not done, 03/07/17UT D on COVID 19 vaccine RTC in 4 monthslabs to be doneER if worseshe did verbalize her understand ing of the above Supraventr icular tachycardia 8083859 I47.10 S/p ablationOn bystolic 10mg dailyOn HCTZ 25mg daily See Dr Radha Vivar 06/26/2023 Gastroesop hageal reflux disease without esophagitis 771443925 K21.[address] Jo-Ann nunez 03/13/18 On PPI does well on this Asthma 608031896 J45.[address] Dale Hand, [place], pulmonolog ist, 02/21/2021 , 02/20/2022 Seen Tashia Mirza 05/07/2023 : [facility] On ventolinOn Symbicort 160 2 puffs bidOn DuonebOn singulair Does well Anxiety 04738748 F41.9 On xanax as neededOn sertraline 50mg daily Does well Not suicidal or homicidal Skin lesion 94964642 L98 .9 skin lesionHas had a biopsy of the R shoulder skin lesion by Dr Escobar es well now Anemia 671052372 D64.9 Noting her history of colitisSho uld be on iron and vit c Hyperlipidemia 55078572 E78.5 On atorvastat in 40mg dailyGet labs Retinal disorder 3157804 9 H35.[address]s with Dr Long Colitis 85471251 K52.9 01/03/19: Dr Darwin nunez, f/u again in 2-3 months, to get a breath test, started on prilosec and zantac 02/05/19: Breath test, indicates normal to slightly prolonged small bowel transit 01/13/2020 : Dr Pope Ban fellow for Dr Marino, no plan for surgery, 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 and no plans for surgery, referred [facility] 03/30/2020 : Dr Ibarra: [place] [facility]: now to get c-scope and egd On nortriptyl ine 25mg daily given by Dr Jimenez, feels that this has really helped Michelle dicyclomin Dajuan protonixOn zofran Allergic rhinitis 272936 04 J30.9 On singulairO n HHNsOn symbicort Dr Concepcion smalls Steatosis of liver 1007 K76.0 Does wellGet labsStates that the LFTs were elevated d/t her diarrhea and she would like to repeat the labs again declines any GI referrals or US liver for now Vitamin D deficiency 347 58491 E55.9 Low back pain 439030546 M54.50 Has taken flexerill in the pastNo LBP at the present Can renew Hypomagnesemia 237203617 E83.42 On mag ox OTC Get levels Bilateral hearing loss 13431737 H91.93 Get a hearing test done Hypokalemia 18430583 E87 .6 See case on the labs, repeat the K level Screening mammography 24 545895 Z12.31 Screening for osteoporosis 084756894 Z13.820 Gynecologi c examination 82045752 Z01.419 Varicose v eins of lower extremity 81038270 I83.893 Has noted achyness and pain in the legs Get a referral to Dr Kumar Thyroid nodule 541891521 E04.1 Is to get Bx done on 07/12/2023 , is also to see ENT Dr Llamas [id number] Dayron pillai MD [facility] [place] [address] [facility] [place] [address] 12/24/2023 15:33:53 12/24/2023 16:38:25 Screening - NAD 045589973 Z13.9 Dr Jo-Ann nunez 09/04/18, again started on entocort if symptoms still persist would need another c-scope and possible Imuran therapy C-scope: Dr Jo-Ann nunez 07/14/2019 : Tubular adenoma, is to get another c-scope in 12/2019, get a referral to [facility] as per her wishes 04/05/2020 : [facility]: C-scope: Dr Tracy Jimenez MD: 3mm polyp in ascending colon, diverticul osis in sigmoid and in descending colon and the transverse colon, next in 3 years as per history 06/04/2023 : [facility]: C-scope: Tracy Jimenez MD: Ileocecal valve polyp, asc polyp, transv polyp Mammogram: 07/17/17, Neg 9: Neg 020: Neg 021: Neg, [id number]: Neg 023: Neg Dexa: Ordered 07/15/2020 , 11/22/2020 PAP: 12/25/17: Dr Nicolas LINDA, did see her in 01/2020 UTD on yearly flu shotUTD Tdap if not done, 03/07/17UT D on COVID 19 vaccine RTC in 6 monthslabs to be doneER if worseshe did verbalize her understand ing of the above Supraventr icular tachycardia 5202325 I47.10 S/p ablationOn bystolic 10mg dailyOn HCTZ 25mg daily See Dr Radha Vivar 06/26/2023 Gastroesop hageal reflux disease without esophagitis 037908671 K21.[address] Jo-Ann nunez 03/13/18 On PPI does well on this Asthma 775984892 J45.[address] Dale Hand, [place], pulmonolog ist, 02/21/2021 , 02/20/2022 Seen Tashia Mirza 05/07/2023 : [facility] On ventolinOn Symbicort 160 2 puffs bidOn DuonebOn singulair Does well Anxiety 56445553 F41.9 On xanax as neededOn sertraline 50mg daily Does well Not suicidal or homicidal Skin lesion 07359743 L98 .9 skin lesionHas had a biopsy of the R shoulder skin lesion by Dr Luz xie well now Anemia 195307501 D64.9 Noting her history of colitisSho uld be on iron and vit c Hyperlipidemia 35203164 E78.5 On atorvastat in 40mg dailyGet labs Retinal disorder 2109041 9 H35.[address] more [address]s with Dr Long Colitis 51034013 K52.9 01/03/19: Dr Darwin nunez, f/u again in 2-3 months, to get a breath test, started on prilosec and zantac 02/05/19: Breath test, indicates normal to slightly prolonged small bowel transit 01/13/2020 : Dr Toshia Greco fellow for Dr Marino, no plan for surgery, 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 and no plans for surgery, referred to [facility] 03/30/2020 : Dr Ibarra: [facility]: now to get c-scope and egd On nortriptyl ine 25mg daily given by Dr Jimenez, feels that this has really helped Michelle dicyclomin Dajuan protonixOn zofran Allergic rhinitis 623609 04 J30.9 On singulairO n HHNsOn symbicortO n ventolinSe es pulmonary with Dr Moran in [place] as per her hx 12/24/2023 Steatosis of liver 18679 1007 K76.0 Does wellGet labsStates that the LFTs were elevated d/t her diarrhea and she would like to repeat the labs again declines any GI referrals or US liver for now Vitamin D deficiency 347 02671 E55.9 Low back pain 327159448 M54.50 Has taken flexerill in the pastNo LBP at the present Can renew Hypomagnesemia 729340957 E83.42 On mag ox OTC Get levels Bilateral hearing loss 09541469 H91.93 Get a hearing test done Hypokalemia 36944272 E87 .6 See case on the labs, repeat the K level Screening mammography 24 189100 Z12.31 Screening for osteoporosis 083008145 Z13.820 Gynecologi c examination 34412246 Z01.419 Varicose v eins of lower extremity 44534072 I83.893 Has noted achyness and pain in the legs Get a referral to Dr Kumar Thyroid nodule 537738342 E04.1 Bx 07/12/2023 : [facility] Section Related Observation LastModified by Organization Detai ls LastModified Time None Recorded Concern Status LastModified by Organization Details LastModified Time None Recorded Advance Directives Directive N: Payers Encounter Date Sequence Insurance Name Policy Number Policy Pelletier Covered Member ID Pelletier Member ID Guarantor Name 12/13/2022 1 [employer] [id number] Macrina R Yang [id number] Macrina R Yang 06/27/2023 1 [employer] [id number] Macrina R Yang [id number] Macrina R Yang 12/24/2023 1 [employer] [id number] Macrina R Yang [id number] Macrina R Yang Notes Date Note Type Note Provider Name and Address Organization Details Recorded Time 12/13/2022 text/html 03/07/17Here to establish carePast Hx:AnxietyHTNGERDAedilma GatesergiesReviewed social family and surgical historyHere to establish care and discuss above and get the labs OV 08/29/17:Here for her 6 months follow up aptShe denies any complaintsNo new labs have been doneShe does want her xanax refilledOV 03/06/18:Here for her routine aptShe states that she is doing well at this time OV 08/28/18:Here for her routine aptShe states that she still has some colitis, and is to see Dr Gillespie againOV 01/20/19:Here for her routine aptShe feels well, states that she is exercising well and now has bought a stationary bikeShe did see GIShe also did do the labsOV 07/21/2019:Here for her routine aptShe states that she has not yet done the labsShe did see Dr Gillespie for a c-scope and was told she may need a CT abd/pelvis, has occasional abd pain and discomfort, none today, no N/V/D or blood in stoolOV 12/15/2019:Here for tele visitShe is agreeable to do the visitShe did do the labs in 08/2019She did do the mammogram, she does feel a little more anxious, she denies any suicidal or homicidal ideation or attemptsShe still has abd cramping and is on a tapered dose of entocort and would prefer to get another opinion [place] 07/15/[place];Tele visitShe is agreeable to to the tele visitShe states that she is doing well, she did see her cardiologistShe has done some labs alsoOV 11/22/2020:Here for her routine aptShe is doing wellShe has not done her labs OV 05/23/2021:Here for her routine aptShe is doing wellShe has no recent labsOV 11/28/2021:Here for her routine aptShe feels Codi did do the labs on 2OV 06/14/2022:Here for her f/u apt, she is doing well, would like to get a referral for hearing test and also to do an apt with a vascular surgeon for varicose veins OV 12/13/2022: Here for her f/u apt, she is doing well today Dayron Ambriz MD [address] [facility], [facility] [address], [place], [address], [place] [facility] 12/13/2022 16:18:01 06/27/2023 text/html 03/07/17Here to establish carePast Hx:AnxietyHTNGERDAedilma GatesergiesReviewed social family and surgical historyHere to establish care and discuss above and get the labs OV 08/29/17:Here for her 6 months follow up aptShe denies any complaintsNo new labs have been doneShe does want her xanax refilledOV 03/06/18:Here for her routine aptShe states that she is doing well at this time OV 08/28/18:Here for her routine aptShe states that she still has some colitis, and is to see Dr Gillespie againOV 01/20/19:Here for her routine aptShe feels well, states that she is exercising well and now has bought a stationary bikeShe did see GIShe also did do the labsOV 07/21/2019:Here for her routine aptShe states that she has not yet done the labsShe did see Dr Gillespie for a c-scope and was told she may need a CT abd/pelvis, has occasional abd pain and discomfort, none today, no N/V/D or blood in stoolOV 12/15/2019:Here for tele visitShe is agreeable to do the visitShe did do the labs in 08/2019She did do the mammogram, she does feel a little more anxious, she denies any suicidal or homicidal ideation or attemptsShe still has abd cramping and is on a tapered dose of entocort and would prefer to get another opinion with a Gi in [facility] UOV 07/15/2020;Tele visitShe is agreeable to to the tele visitShe states that she is doing well, she did see her cardiologistShe has done some labs alsoOV 11/22/2020:Here for her routine aptShe is doing Karolinahe has not done her labs OV 05/23/2021:Here for her routine aptShe is doing wellShe has no recent labsOV 11/28/2021:Here for her routine aptShe feels wellShe did do the labs on 2OV 06/14/2022:Here for her f/u apt, she is doing well, would like to get a referral for hearing test and also to do an apt with a vascular surgeon for varicose veins OV 12/13/2022: Here for her f/u apt, she is doing well today OV 06/27/2023: Here for her routine apt, she feels well today She did get her C-scope Dayron Ambriz MD [address] [place] [address], [address], [place], [id number], [facility] [employer] 06/27/2023 18:16:54 12/24/2023 text/html 03/07/17Here to establish carePast Hx:AnxietyHTNGERDAfelecia GatesergiesReviewed social family and surgical historyHere to establish care and discuss above and get the labs OV 08/29/17:Here for her 6 months follow up aptShe denies any complaintsNo new labs have been doneShe does want her xanax refilledOV 03/06/18:Here for her routine aptShe states that she is doing well at this time OV 08/28/18:Here for her routine aptShe states that she still has some colitis, and is to see Dr Gillespie againOV 01/20/19:Here for her routine aptShe feels well, states that she is exercising well and now has bought a stationary bikeShe did see GIShe also did do the labsOV 07/21/2019:Here for her routine aptShe states that she has not yet done the labsShe did see Dr Gillespie for a c-scope and was told she may need a CT abd/pelvis, has occasional abd pain and discomfort, none today, no N/V/D or blood in stoolOV 12/15/2019:Here for tele visitShe is agreeable to do the visitShe did do the labs in 08/2019She did do the mammogram, she does feel a little more anxious, she denies any suicidal or homicidal ideation or attemptsShe still has abd cramping and is on a tapered dose of entocort and would prefer to get another opinion with a Gi in [facility] UOV 07/15/2020;Tele visitShe is agreeable to to the tele visitShe states that she is doing well, she did see her cardiologistShe has done some labs alsoOV 11/22/2020:Here for her routine aptShe is doing Karolinahe has not done her labs OV 05/23/2021:Here for her routine aptShe is doing wellShe has no recent labsOV 11/28/2021:Here for her routine aptShe feels Codi did do the labs on 2OV 06/14/2022:Here for her f/u apt, she is doing well, would like to get a referral for hearing test and also to do an apt with a vascular surgeon for varicose veins OV 12/13/2022: Here for her f/u apt, she is doing well today OV 06/27/2023: Here for her routine apt, she feels well today She did get her C-scope OV 12/24/2023: Here for her f/u apt, she is doing well today, she did do the labs, now agreeable to see Dr Kumar for her varicose veins Dayron Ambriz MD [address] [place] [address], [facility] [address], [place], [address], [facility] 12/24/2023 16:42:06 OBGyn Episode No OBEpisode recorded.
[2024-06-16 19:13] LABS: Alanine Aminotransferase 26 U/L (6-35); Albumin Level 4.3 g/dL (3.5-5.1); Alkaline Phosphatase 75 U/L (38-126); Anion Gap 9 mmol/L (4-12); Aspartate Amino Transferase 31 U/L (14-36); Bilirubin,Total 0.5 mg/dL (0.2-1.3); Blood Urea Nitrogen 15 mg/dL (7-17); Calcium 9.4 mg/dL (8.4-10.2); Carbon Dioxide 32 mmol/L (22-30); Chloride 98 mmol/L (98-107); Cholesterol 148 mg/dL (0-200); Estimated Glomerular Filt Rate > 60; Glucose 96 mg/dL (65-110); HDL Direct 55 mg/dL; Magnesium 1.8 mg/dL (1.6-2.3); Potassium 3.9 mmol/L (3.4-5.0); Sodium 139 mmol/L (137-145); Triglycerides 136 mg/dL (<150)
[2024-06-16 19:17] LABS: Basophils Absolute Auto 0.1 K/mm3 (0.0-0.1); Basophils Percent Auto 0.9 % (0.2-1.2); Eosinophils Absolute Auto 0.1 K/mm3 (0-0.3); Eosinophils Percent Auto 1.8 % (0-4.4); Hematocrit 37.5 % (37.0-47.0); Hemoglobin 11.9 g/dL (12.0-15.0); Immature Granulocyte Absolute 0.02 K/mm3 (0.00-0.031); Immature Granulocyte Percent A 0.4 % (0-0.5); Lymphocytes Absolute Auto 2.03 K/mm3 (0.9-3.2); Lymphocytes Percent Auto 36.3 % (18.3-44.2); Mean Corpuscular HGB Conc 31.7 g/dl (32-36); Mean Corpuscular Hemoglobin 28.6 pg (26-34); Mean Corpuscular Volume 90.1 fl (80-100); Mean Platelet Volume 11.8 fl (7.4-10.4); Monocytes Absolute Auto 0.5 K/mm3 (0.1-0.6); Monocytes Percent Auto 9.1 % (2.6-8.5); Neutrophils Absolute Auto 2.9 K/mm3 (1.3-6.7); Neutrophils Percent Auto 51.5 % (45.5-73.1); Platelet Count Result 105 k/mm3 (150-375); Red Blood Count 4.16 M/mm3 (4.2-5.4); Red Cell Distribution Width 13.9 % (11.5-14.5); White Blood Count 5.6 K/mm3 (4.5-10.0)
[2024-06-16 19:23] LABS: LDL Cholesterol Direct 71 mg/dL
[2024-06-16 23:20] LABS: Vitamin D 25 Hydroxy 64.1 ng/mL
== END 2024-06-16 08:25 | disposition home or self-care (01) ==
LOC: ANHASCLAB 08:27
PROVIDERS: PCP Internal Medicine; Visit Provider Internal Medicine
DX: E78.5 Hyperlipidemia, unspecified (principal); E55.9 Vitamin D deficiency, unspecified
CPT/HCPCS: 36415; 80053; 80061; 82306; 83735; 84443; 85025

== ENCOUNTER 2024-08-21 07:05 | Outpatient (CLI) | payer OTHER, SELFPAY ==
--- NOTE | ~2024-08-21 | XR_ITS ---
XR sacroiliac joints min 3V Ordering provider: Torri Alegria, DA[employer] EQUIPMENT SPECIALIST-C History: . Sacroiliac joint pain . Comparison: None. FINDINGS: BONES: No acute fracture or dislocation. Degenerative changes of the spine. JOINTS: The bilateral sacroiliac joint spaces shows sacroiliitis.. No bony fusion of the sacroiliac j oints or bony erosions. SOFT TISSUES: Unremarkable. IMPRESSION: NO ACUTE OSSEOUS ABNORMALITY. Bilateral sacroiliitis. Reviewed, dictated and finalized at location A.
--- NOTE | ~2024-08-21 | MR_ITS ---
MRI of the lumbar spine Clinical History: Radiculopathy Technique: Axial T2-weighted images, and sagittal T1-weighted, T2-weighted, and T2 fat-sat images wer e acquired. Findings: There is no fracture or subluxation of the lumbar spine. Vertebral bodies maintain normal h eight and alignment. No bone marrow signal abnormality seen. At L1-L2 and L2-L3, there is no disc bulge or herniation. There are moderate to advanced facet joint degenerative changes at these levels. No spinal canal stenosis or neural foraminal narrowing at these levels. At L3-L4, there is minimal degenerative disc narrowing. There is advanced facet arthropathy. No centr al canal stenosis or neural foraminal narrowing. At L4-L5, there is minimal disc bulge and severe facet arthropathy. There is mild central canal steno sis. Neural foramina are preserved. At L5-S1, there is minimal disc bulge with moderate facet arthropathy. No central canal stenosis. The re is minimal left neural foraminal narrowing, and moderate right neural foraminal narrowing. Paravertebral soft tissues are unremarkable. Impression: Mild degenerative spondylosis overall, as detailed above. Reviewed, dictated and finalized at location . Impression: Mild degenerative spondylosis overall, as detailed above.
--- NOTE | ~2024-08-21 | XR_ITS ---
3 VIEWS LUMBAR SPINE Ordering provider: Torri Alegria, MARKET DEVELOPMENT EXECUTIVE-C History: . Other lbp . Comparison: None. FINDINGS: VERTEBRAL BODIES: No visible fracture or subluxation. Mild dextroscoliosis. DISK SPACES: Normal. Facet joint disease at the level of L4-L5 and L5-S1. Bilateral sacroiliitis. SOFT TISSUES: Normal. IMPRESSION: No acute osseous abnormality lumbar spine. Reviewed, dictated and finalized at location A.
== END 2024-08-21 07:06 | disposition home or self-care (01) ==
LOC: MICIMG 07:06
PROVIDERS: PCP Internal Medicine; Visit Provider Nurse Practitioner Family
DX: M46.1 Sacroiliitis, not elsewhere classified (principal); M47.26 Other spondylosis with radiculopathy, lumbar region
CPT/HCPCS: 72100; 72148; 72202

== ENCOUNTER 2024-11-20 13:54 | Outpatient (CLI) | payer OTHER, SELFPAY ==
--- NOTE | ~2024-11-20 | DEXA_ITS ---
Bone Density Report Name: WINDY HOFF Age: 54 Sex: Female Ethnicity: White Date of : 1970 Indication: postmenopausal; screening for osteoporosis; height loss; inflammatory bowel disease; asthma or emphysema; hysterectomy; Referring Provider: HELIO, DANIEL Study: Bone densitometry was performed. Exam Date: November 20, 2024 Accession number: [id number] Bone Density: Region BMD T-score Z-score Classification AP Spine(L1-L4) 1.415 3.3 4.5 Normal Femoral Neck (Left) 1.048 1.8 2.9 Normal Total Hip (Left) 1.273 2.7 3.5 Normal Femoral Neck (Right) 1.143 2.6 3.8 Normal Total Hip (Right) 1.303 3.0 3.7 Normal Total Hip Mean 1.288 2.9 3.6 Normal World Health Organization criteria for BMD impression classify patients as: Normal (T-score at or above -1.0), Osteopenia (T-score between -1.0 and -2.5), or Osteoporosis (T-score at or below -2.5). 10-year Fracture Risk: FRAX not reported because: All T-scores for Spine Total, Hip Total, Femoral Neck at or above -1.0 Clinical Information Provided by Patient: Has used the following medications: Vitamin D Has the following medical conditions: Asthma or Emphysema, Inflammatory bowel diseases, Hysterectomy Patient maximum height was 68 Menopause Age: 34 Drinks caffeinated beverages Onset of menses at age 13 Number of children 2 Impression: The patient has normal bone mass. Discussion: LOW RISK OF FRACTURE; BONE DENSITY IS WELL ABOVE THE MINIMUM DESIRABLE LEVEL AND ABOVE AVERAGE FOR AGE AND SEX AT ALL SKELETAL SITES TESTED. This person's bone density is above expected limits for age and sex. This is rarely clinically significant, but should be pursued if there are significant musculoskeletal complaints. The patient should follow a healthful lifestyle (good nutrition with adequate calcium and vitamin D, and appropriate weight-bearing exercise). Follow-Up: Consider repeating this study in 5 years or sooner if there is some new clinical indication. Reported by: KINGSLEY on 11/20/2024 2:35:00 PM. Reviewed, dictated and finalized at location A.
--- OUTSIDE RECORDS SUMMARY | 2024-11-20 14:07 | XMS_ITS | Data Portability ---
Author Organization [place] - [facility], Main Office Address [address] [place] [address] Care Team Providers Care Dermatology Teacher Name Role Phone [facility] Pulmonologi Assessment Encounter Date Assessment Date Assessment LastModified by Organization Details LastModified Time 12/13/2022 12/13/2022 01/30/2022: TG 165 HGB 11.9 Not available 12/12/2022 18:31:44 06/27/2023 06/27/2023 01/30/2022: TG 165 HGB 11.9 06/23/2023: Mejia ER Trop I <0.012 06/25/2023: AST/ALT 104/82 Not available 06/27/2023 09:20:27 12/24/2023 12/24/2023 01/30/2022: TG 165 HGB 11.9 06/23/2023: Mejia ER Trop I <0.012 06/25/2023: AST/ALT 104/82 12/19/2023: K 3.3, BUN 20 H/H 11.3/35.8 Not available 12/20/2023 17:42:51 06/16/2024 06/16/2024 01/30/2022: TG 165 HGB 11.9 06/23/2023: Mejia ER Trop I <0.012 06/25/2023: AST/ALT 104/82 12/19/2023: K 3.3, BUN 20 H/H 11.3/35.8 Not available 06/16/2024 17:39:42 Plan of Treatment Reminders Order Date Submit Date Provider Last Modified By Organization Details Last Modified Time Details Appointments Follow Up 15 2024 02:45P M Dayron carvalho MD Not available Not available Not available Lab magnesium , serum or plasma 2024 025 [facility] (Lab), [address] [place] [address], [address], 06/16/2024 16:40:38 lipid panel, serum 2024 025 [facility] (Lab), [address] [place] [address], [address], 06/17/2024 05:55:31 CMP, serum or plasma 2024 025 [facility] (Lab), [address] [place] [address], [address], 06/17/2024 05:55:31 CBC w/ auto diff 2024 025 [facility] (Lab), [address] [place] [address], [address], 06/17/2024 05:55:31 TSH + free T4, serum 2024 025 [facility] (Lab), [address] [place] [address], [address], 06/16/2024 16:40:39 vitamin D, 25-hydrox y, total, serum [address] [place] [address] (Lab), [address] [place] [address], [address], 06/17/2024 11:31:51 magnesium , serum or plasma [address] (Lab), [address] [place] [address], [address], 06/30/2024 08:52:36 lipid panel, serum [address] (Lab), [address] [place] [address] [place], [address], 06/24/2024 08:36:23 CMP, serum or plasma [address] (Lab), [address] [place] [address] [address], [place], [address], 06/24/2024 08:36:23 CBC w/ auto diff [address] (Lab), [address] [place] [address] [address], [place], [address], 06/24/2024 08:36:23 TSH + free T4, serum [address] (Lab), [address] [place] [address], [place], [address], 06/24/2024 08:36:24 vitamin D, 25-hydrox y, total, serum [address] (Lab), [address] [place] [address], [place], [address], 06/24/2024 08:36:23 potassium , serum or plasma [address] (Lab), [address] [place] [address], [address], 01/02/2024 11:07:14 magnesium , serum or plasma 2023 024 [facility] (Lab), [address] [place] [address], [place], [address], 07/03/2023 23:20:03 lipid panel, serum [address] (Lab), [address] [place] [address], [address], 01/02/2024 09:22:36 CMP, serum or plasma 2023 024 [facility] (Lab), [address] [place] [address], [address], 12/20/2023 17:46:09 CBC w/ auto diff [address] (Lab), [address] [place] [address], [address], 01/02/2024 09:22:36 TSH + free T4, serum [address] (Lab), [address] [place] [address], [address], 06/24/2024 08:36:23 vitamin D, 25-hydrox y, total, serum [address] (Lab), [address] [place] [address], [address], 06/24/2024 08:36:23 potassium , serum or plasma [address] (Lab), [address] [place] [address], [address], 01/02/2024 09:22:36 lipid panel, serum 2022 023 [facility] (Lab), [address] [place] [address], [address], 12/15/2022 07:34:17 CMP, serum or plasma 2022 023 [facility] (Lab), [address] [place] [address], [address], 12/15/2022 07:34:17 CBC w/ auto diff 2022 023 [facility] (Lab), [address] [place] [address], [address], 12/15/2022 07:34:17 TSH + free T4, serum [address] (Lab), [address] [place] [address], [address], 08/01/2023 08:40:24 vitamin D, 25-hydrox y, total, serum [email or web address] [place] [address] ([facility]), [address] [facility] [address], [place], [address], 08/01/2023 08:40:24 Referral gynecolog ist referral - Please call patient to schedule an appointme nt. Thank you. 2024 025 fela Valenzuela MD, [address] [facility] [address], [facility] [address], [place], [address], 09/30/2024 15:08:35 vascular surgeon referral - Please call patient to schedule an appointme nt. Thank you. 2024 025 [place], [address], [address], [place], [address], 09/30/2024 15:08:36 gastroent erologist referral - Please call patient to schedule an appointme nt. Thank you. 2024 025 fela Jimenez MD, [address], [address], [place], [address], 07/16/2024 15:36:14 cardiolog ist referral 2023 024 [email or web address] Nelson Vivar, [address] [place] [address] [address], [place], [address], 01/21/2024 09:20:56 gynecolog ist referral 2023 024 marichuy Valenzuela MD, [address] [facility] [address], [facility] [address], [place], [address], 06/24/2024 08:09:10 vascular surgeon referral 2023 024 [place], [address], [address], [place], [address], 06/24/2024 08:09:11 pulmonolo gist referral 2023 024 LUKE Not available 05/24/2024 08:31:40 gastroent erologist referral 2023 024 Tracy Jimenez MD, [address], [address], [place], [address], 01/21/2024 09:20:55 cardiolog ist referral 2023 024 [email or web address] Nelson Richardlio, [address], [place], [address], 07/25/2023 08:39:25 gynecolog ist referral 2023 024 [email or web address] Manjeet Valenzuela MD, [address] [facility] [address], [address], [place], [address], 01/21/2024 09:20:23 vascular surgeon referral 2023 024 [email or web address] [place], [address], [address], [place], [address], 01/21/2024 09:20:24 pulmonolo gist referral 2023 024 [email or web address] Not available 01/21/2024 09:20:23 gastroent erologist referral 2023 024 [email or web address] Tracy Jimenez MD, [address], [address], [place], [address], 07/25/2023 08:38:58 cardiolog ist referral 2022 023 [email or web address] Wesley Garnica, [address], [address], [place], [address], 02/02/2023 17:08:53 gynecolog ist referral 2022 023 [email or web address] Manjeet Valenzuela MD, [address], [address], [place], [address], 02/02/2023 17:08:06 pulmonolo gist referral 2022 023 [email or web address] Stephen Hand MD, [address], [address], [place], [address], 02/02/2023 17:09:07 gastroent erologist referral 2022 023 [email or web address] Tracy Jimenez MD, [address], [address], [place], [address], 02/02/2023 17:08:39 Procedures None recorded. Surgeries None recorded. Imaging DEXA, axial skeleton - Please call patient to schedule. [email or web address] [facility], [address] [place] [address], [address], [place], [address], 09/15/2024 16:50:19 MAMMO, screening , digital, bilateral 2023 024 [email or web address] Not available 07/15/2024 12:54:16 DEXA, axial skeleton 2023 024 [facility], [address], [place], [address], 06/16/2024 16:58:35 MAMMO, screening , digital, bilateral 2023 024 [email or web address] Not available 07/11/2023 08:50:36 DEXA, axial skeleton 2023 024 [email or web address] [facility], [address], [place], [address], 06/16/2024 16:58:45 MAMMO, screening , digital, bilateral 2022 023 LUKE Not available 12/22/2022 13:11:39 DEXA, axial skeleton 2022 023 [email or web address] [facility], [address] [facility], [place], [address], 08/01/2023 08:42:23 Medication Orders None recorded. Patient TargetsNo targets recorded. Patient InstructionsNo instructions recorded. Reason for Referral Activity Aide Referral for Gy necologic examination Referring Physician: Dayron Ambriz Internal Medicine, Encounter Date: 12/13/2022 Assistance Representative Referral for Colitis Referring Physician: Dayron Ambriz Internal Medicine, Encounter Date: 12/13/2022 Order To Delivery Supervisor Referral for Thompson praventricular tachycardia Referring Physician: Ion Perez Medicine, Encounter Date: 12/13/2022 Human Relations Professor Referral for A sthma Referring Physician: Ion Perez Medicine, Encounter Date: 12/13/2022 Activity Aide Referral for Gy necologic examination Referring Physician: Ion Perez Medicine, Encounter Date: 06/27/2023 Assistance Representative Referral for Colitis Referring Physician: Ion Perez, Encounter Date: 06/27/2023 Order To Delivery Supervisor Referral for Thompson praventricular tachycardia Referring Physician: Ion Perez, Encounter Date: 06/27/2023 Human Relations Professor Referral for A sthma Referring Physician: Ion Perez Medicine, Encounter Date: 06/27/2023 Vascular Surgeon Referral fo r Varicose veins of lower extremity Referring Physician: Ion Perez Medicine, Encounter Date: 06/27/2023 Activity Aide Referral for Gy necologic examination Referring Physician: Ion Perez, Encounter Date: 12/24/2023 Assistance Representative Referral for Colitis Referring Physician: Ion Perez, Encounter Date: 12/24/2023 Order To Delivery Supervisor Referral for Thompson praventricular tachycardia Referring Physician: Dayron Ambriz Internal Medicine, Encounter Date: 12/24/2023 Human Relations Professor Referral for A sthma Referring Physician: Dayron Ambriz Internal Medicine, Encounter Date: 12/24/2023 Vascular Surgeon Referral fo r Varicose veins of lower extremity Referring Physician: Dayron Ambriz Internal Medicine, Encounter Date: 12/24/2023 Activity Aide Referral for Gy necologic examination Please call patient to schedule an appointment. Thank you. Referring Physician: Dayron Ambriz Internal Medicine, Encounter Date: 06/16/2024 Assistance Representative Referral for Colitis Please call patient to schedule an appointment. Thank you. Referring Physician: Dayron Ambriz Internal Medicine, Encounter Date: 06/16/2024 Vascular Surgeon Referral fo r Varicose veins of lower extremity Please call patient to schedule an appointment. Thank you. Referring Physician: Dayron Ambriz Internal Medicine, Encounter Date: 06/16/2024 Results Created Date Observation Date Name Description Value Unit Range Abnormal Flag Note LastModifiedBy Organization Detail LastModifiedTime 12/23/1912/22/2022 MAMMO , scree chente, digit al, bilat eral No observ ation record ed. [email or web address] [facility] [address], [place], [address], 12/27/2022 15:13:06 05/25/19 24 05/25/2023 US, thyro id No observ ation record ed. [place] [address] [facility] [address] [place] [address], [address], 07/16/2023 11:10:41 06/23/19 24 06/22/2023 CT, abdom en + pelvi s, w/ contr ast No observ ation record ed. [email or web address] [place] [address] [facility] [address], [place], [address], 09/16/2024 15:06:05 07/05/19 24 07/04/2023 US, echoc ardio gram No observ ation record ed. [address], [place], [address], 09/16/2024 15:10:19 07/12/19 24 07/12/2023 fine needl e aspir ation , thyro id (PROC ) No observ ation record ed. [place] [id number], [place], [address], 07/12/2023 16:11:44 07/16/19 24 07/16/2023 CT, coron luis f calci um score No observ ation record ed. [address] [address] [place], [address], 09/16/2024 15:09:23 02/16/20 24 02/15/2024 US, thyro id No observ ation record ed. [place] [id number] [facility] [address], [place], [address], 02/16/2024 09:14:05 02/25/2002/22/2024 MAMMO , scree chente, digit al, bilat eral No observ ation record ed. [email or web address] Not Available 2024 12:54:03 08/22/19 25 08/21/2024 MRI, lumba r spine , w/o contr ast No observ ation record ed. [address] [facility] [address], [place], [address], 09/16/2024 15:06:51 08/22/19 25 08/21/2024 XR, sacro iliac joint (s) No observ ation record ed. [address] [facility] [address], [place], [address], 09/16/2024 15:08:48 04/2808/21/2024 XR, lumba r spine , 2 view No observ ation record ed. [email or web address] [facility] [address], [place], [address], 09/16/2024 15:06:33 Result Notes None recorded. Problems Name Problem SNOMED Code Status Onset Date Resolution Date Notes Provider Name and Address Organization Details Recorded Time Asthma 352790446 Active Not Available [facility] 3 03:08:22 Anxiety state 755771447 Active Not Available [facility] 3 03:08:22 Gastroesophag eal reflux disease 998032353 Active Not Available [facility] 3 03:08:22 Essential hypertension 36228856 Active Not Available [facility] 3 03:08:23 Supraventricu lar tachycardia 6485019 Active Not Available [facility] 3 03:08:23 Colitis 01320263 Active 2018 Not Available [facility] 3 03:08:23 Hyperlipidemi a 48066221 Active 2021 Not Available [facility] 3 03:08:22 Hearing loss 03509962 Active 2022 Not Available [facility] 3 03:08:22 Hypokalemia 70111867 Active 2022 Not Available [facility] 3 03:08:22 Gastroesophag eal reflux disease without esophagitis 937212783 Active 2022 Dayron pillai MD [address], [place], [address] , [employer] [facility] [employer] 3 18:32:21 Anxiety 34313802 Active 2022 Dayron pillai MD [address], [place], [address] , [employer] [facility] [employer] [facility] 3 18:32:33 Skin lesion 91395931 Active 2022 Dayron pillai MD [address], [place], [address] , [place] [facility] 3 18:32:39 Anemia 561172517 Active 2022 Dayron pillai MD [address], [address], [place], [address] , [place] [facility] 3 18:32:44 Retinal disorder 98578028 Active 2022 Dayron pillai MD [address], [address], [place], [address] , [place] [facility] 3 18:32:57 Allergic rhinitis 06418308 Active 2022 Dayron pillai MD [address], [address], [place], [address] , [place] [facility] 3 18:33:11 Steatotic liver disease 285938317 Active 2022 Dayron pillai MD [address], [place], [address] , [place] [facility] 3 18:33:18 Vitamin D deficiency 64823370 Active 2022 Dayron pillai MD [address], [address], [place], [address] , [place] [facility] 3 18:33:23 Low back pain 257138580 Active 2022 Dayron pillai MD [address], [address], [place], [address] , [place] [facility] 3 18:33:30 Hypomagnesemi a 593606710 Active 2022 Dayron pillai MD [address], [place], [address] , [place] [facility] 3 18:33:39 Bilateral hearing loss 48817886 Active 2022 Dayron pillai MD [address], [place], [address] , [facility] 3 18:34:05 Varicose veins of lower extremity 38055451 Active 2022 Dayron pillai MD [address], [address], [place], [address] , [facility] 3 18:34:45 Thyroid nodule 654257947 Active 2023 Katalina Arndt RN null, [facility] 4 16:38:00 Mammography abnormal 787459309 Active 2023 Aurea Dial MA null, [place] [facility] 4 17:32:19 Varicose veins of lower extremity 49771922 Active 2023 [address] [facility] [address] [facility], [address], [place], [address] , [facility] 4 16:41:24 Obstructive sleep apnea syndrome 78973794 Active 2023 SUE Khan null, [place] [facility] 4 17:03:24 Bilateral hearing loss 94117252 Active 2023 SUE Khan null, [facility] 4 17:01:05 Chronic low back pain 408558486 Active 2024 SUE Khan null, [facility] 5 10:17:21 Problem Notes None recorded. Procedures Surgical History Date Name Laterality Status Provider Name and Address Organization Details Recorded Time 07/10/19 Colonoscopy completed Not Available [facility] 06/29/19 02:55:10 section completed Not Available [facility] 06/28/2022 02:55:10 operation on urinary bladder completed Not Available [facility] 06/28/2022 02:55:10 Tonsillectomy completed Not Available [facility] 06/28/2022 02:55:10 other completed Not Available [facility] 04/2022 02:55:10 Imaging Results None recorded. Procedure Notes None recorded. Medical Equipment None Reported. Allergies Allergen ID Allergen Name Allergen Category Reaction Reaction Severity Criticality Documentation Date Start Date Code Code System Note Provider Name and Address Organization Details Recorded Time 5942 Substance with sulfonami de structure and antibacte rial mechanism of action (substanc e) medicatio n rash Not available Not available 06/28/2022 43985 8003 SNOMED Not Available [facility] 03:28:47 Medications Name Sig Start Date Stop Date Status Note LastModified by Organization Details LastModified Time cyclobenz aprine 10 mg tablet Take 1 tablet every day by oral route as needed for 30 days. active Not Available Not Available No t Available atorvasta tin 40 mg tablet TAKE 1 TABLET BY MOUTH EVERY DAY 2024 active Not Available Not Available Not Avai lable prednison e 10 mg tablet PLEASE SEE [...] CAPSULE (10 MG TOTAL) BY MOUTH NIGHTLY. 06/16 completed Not Available Not Available Not Available oseltamiv ir 75 mg capsule Take [...] TAKE 2 TABLETS BY MOUTH EVERY DAY 2024 active Not Available Not Available Not Avai lable budesonid e DR - ER 3 mg capsule,d elayed,ex tended release TAKE 3 CAPSULES BY MOUTH EVERY MORNING active Not Available Not Available No t Available Nasonex 50 mcg/actua tion Panther Panther 2 sprays every day by intranas al [...] t Available sertralin e 50 mg tablet TAKE 1 TABLET BY MOUTH EVERY DAY *NO ALCOHOL, DRIVING OR WITH OTHER SEDATING MEDICATI ONS. NOTIFY OFFICE OF ANY CHANGE IN MOOD OR BEHAVIOR 2024 active Not Available Not Available Not Avai labnathalia dicyclomi ne 10 mg capsule TAKE 1 [...] TAKE 1 TABLET BY MOUTH EVERY DAY 2024 active Not Available Not Available Not Avai lable Align (B. is) TK 1T PO QD 2020 active [...] BY MOUTH EVERY DAY FOR 5 DAYS 06/16 completed Not Available Not Available Not Available vitamin D3 125 mcg (5,000 unit)-fol [...] Not Available Vitals Date Recorded Body height Provider Name an d Address Organization Details Last Updated DateTime 06/14/2022 173.99 cm Not Available [facility] 3 03:05:53 Date Recorded Body height Body mass index (BMI) Body weight Body temperature Heart rate Systolic And Diastolic Provider Name and Address Organization Details Last Updated DateTime 5 173.99 cm 34.2 kg/m2 724448. 06 g 97.7 [degF] 78 /min 138/84 mm[Hg] SUE Khan [place] [employer] [facility] [employer] [facility] 5 16:05:59 Date Recorded Body height Body mass index (BMI) Body weight Body temperature Heart rate Systolic And Diastolic Provider Name and Address Organization Details Last Updated DateTime 4 173.99 cm 33.3 kg/m2 870593. 51 g 97.1 [degF] 78 /min 126/70 mm[Hg] Licha Coles Brett [place] [employer] [facility] 4 16:11:35 Date Recorded Body height Body mass index (BMI) Body weight Body temperature Heart rate Oxygen saturation Oxygen saturation in Arterial blood by Pulse oximetry Systolic And Diastolic Provider Name and Address Organization Details Last Updated DateTime 3 173.99 cm 33.9 kg/m2 897713. 88 g 97.6 [degF] 88 /min 98 % 98 % 124/82 mm[Hg] Jael Mojica MA [facility] 3 16:01:11 Date Recorded Body height Body mass index (BMI) Body weight Body temperature Heart rate Systolic And Diastolic Provider Name and Address Organization Details Last Updated DateTime 4 173.99 cm 34.5 kg/m2 139240. 25 g 97.6 [degF] 78 /min 118/80 mm[Hg] Licha Coles rBett [place] [employer] [facility] 4 16:07:54 Social History Question Answer Notes LastModified by Organizat ion Details LastModified Time Tobacco Smoking Status Never Smoker Not Available [employer] 06/28/2022 02:53:25 Do You Have An Advance Directive? No MIGRATION.21129 [id number] Information not available 06/28/2022 Do You Wear A Helmet When Biking? Yes MIGRATION.35056 [id number] Information not available 06/28/2022 What Is Your Level Of Caffeine Consumption? Occasional MIGRATION.59851 [id number] Information not available 06/28/2022 How Much Tobacco Do You Chew? None MIGRATION.33987 71888 Information not available 06/28/2022 In The 14 Days Before Symptom Onset, Have You Had Close Contact With A Laboratory-confi rmed COVID-19 While That Case Was Ill? No MIGRATION.09565 37461 Information not available 06/28/2022 In The 14 Days Before Symptom Onset, Have You Had Close Contact With A Person Who Is Under Investigation For COVID-19 While That Person Was Ill? No MIGRATION.08422 [id number] Information not available 06/28/2022 What Type Of Diet Are You Following? REGULAR GI Problems , On Low Dairy Diet MIGRATION.54189 11583 Information not available 06/28/2022 Which Illicit Or Recreational Drugs Have You Used? None MIGRATION.72047 95070 Information not available 06/28/2022 What Is The Highest Grade Or Level Of School You Have Completed Or The Highest Degree You Have Received? [id number] MIGRATION.92055 79809 Information not available 06/28/2022 Have There Been Any Changes To Your Family Or Social Situation? No MIGRATION.49631 50385 Information not available 06/28/2022 What Is The Fluoride Status Of Your Home? Unknown MIGRATION.88974 77917 Information not available 06/28/2022 Are There Any Guns Present In Your Home? Yes MIGRATION.19670 05226 Information not available 06/28/2022 Do You Use Insect Repellent Routinely? No MIGRATION.13924 55365 Information not available 06/28/2022 Where Do You Live? [place] MIGRATION.89456 94248 Information not available 06/28/2022 Do You Have A Medical Power Of Founder President And Ceo? No MIGRATION.69738 17598 Information not available 06/28/2022 What Was The Date Of Your Most Recent Tobacco Screening? 06/16/2024 [email or web address] Information not available 06/16/2024 Do You Have Any Pets? Yes MIGRATION.35074 25828 Information not available 06/28/2022 What Is Your Relationship Status? MIGRATION.72604 03601 Information not available 06/28/2022 Do You Use Your Seat Belt Or Car Seat Routinely? Yes MIGRATION.46180 44843 Information not available 06/28/2022 Do You Have Smoke And Carbon Monoxide Detectors In Your Home? Yes MIGRATION.15906 65539 Information not available 06/28/2022 Are You Passively Exposed To Smoke? No MIGRATION.49975 68328 Information not available 06/28/2022 Are There Any Smokers In Your House? No MIGRATION.87400 43503 Information not available 06/28/2022 How Much Tobacco Do You Smoke? No MIGRATION.04349 92828 Information not available 06/28/2022 What Types Of Sporting Activities Do You Participate In? None MIGRATION.52997 37326 Information not available 06/28/2022 Do You Use Sunscreen Routinely? Yes MIGRATION.43991 67040 Information not available 06/28/2022 Has Tobacco Cessation Counseling Been Provided? No N/a MIGRATION.65780 00175 Information not available 06/28/2022 How Many Years Have You Smoked Tobacco? 0 MIGRATION.92240 54684 Information not available 06/28/2022 Have You Recently Traveled Abroad? No [id number] Information not available 06/28/2022 Do You Have Any Dietary Restrictions? No MIGRATION.[id number] Information not available 06/28/2022 Sex: Female Functional Status Question Answer Note LastModified by [employer] Details LastModified Time Do you use any illicit or recreational drugs? No MIGRATION.[id number] Information not available 06/28/2022 Do you or have you ever used any other forms of tobacco or nicotine? No MIGRATION.[id number] Information not available 06/28/2022 What is your level of alcohol consumption? Occasional MIGRATION.[id number] Information not available 06/28/2022 Do you or have you ever used smokeless tobacco? Never used smokeless tobacco MIGRATION.[id number] Information not available 06/28/2022 What is your occupation? nurse MIGRATION.[id number] 1301 Information not available 06/28/2022 Do you or have you ever used e-cigarettes or vape? Never used electronic cigarettes MIGRATION.[id number] Information not available 06/28/2022 What is your exercise level? Moderate MIGRATION.[id number] Information not available 06/28/2022 Mental Status Question Answer Note LastModified by [employer] Details LastModified Time Do you feel stressed (tense, restless, nervous, or anxious, or unable to sleep at night)? [id number] [id number] Information not available 06/28/2022 Family History Relationship Description Onset Age of this Age Resolved Age Notes LastModified by Organization Details LastModified Time Father No current problems or disability [id number] Not available 06/28/2022 02:55:21 Father Asthma MIGRATION.257 [id number] Not available 06/28/2022 02:55:21 Father Malignant lymphoma clinic al MIGRATION.403 [id number] Not available 06/28/2022 02:55:21 Father Gastroesopha geal reflux disease MIGRATION.063 [id number] Not available 06/28/2022 02:55:21 Mother No current problems or disability MIGRATION.433 [id number] Not available 06/28/2022 02:55:21 Mother Carcinoma of breast MIGRATION.850 [id number] Not available 06/28/2022 02:55:21 Mother Irritable bowel syndrome MIGRATION.844 [id number] Not available 06/28/2022 02:55:21 Medical History Condition Response BLINDNESS N NERVE DISEASE N RHEUMATIC FEVER N BLADDER PROBLEMS N KIDNEY STONES N MRSA N OTHER # 1 N POLIO N LUNG DISEASE/DISORDER N HISTORY OF DRUG ABUSE N RADIATION / CHEMOTHERAPY N COPD N Other # 2 N BLOOD DISEASES N EAR OR HEARING PROBLEMS N MUMPS N SHINGLES N DEPRESSION (INCLUDING POST ) N BOWEL PROBLEMS Y STROKE/TIA N ULCERS N BENIGN PROSTATIC HYPERPLASIA N MEASLES N HYPOTENSION N MYOCARDIAL INFARCTION N OBESITY N GERD/NAUSEA Y ANEURYSM N URINARY/BLADDER/KIDNEY PROBLEMS N CORONARY ARTERY DISEASE (CAD) N ADDICTION CONCERNS N Impotence N ENDOMETRIOSIS N USE OF BLOOD THINNERS N SKIN [...] GLAUCOMA N FOOT PROBLEM N DIVERTICULITIS N SLEEP APNEA N CHICKENPOX N INFECTIOUS DISEASE N PROSTATE N HEART ARRHYTHMIA N INSOMNIA N HIGH CHOLESTEROL / HYPERLIPIDEMIA Y HYPERTHYROIDISM N EYE PROBLEMS Y EDEMA N CHRONIC PAIN SYNDROME N HYPOTHYROIDISM N CONSTIPATION N CAROTID BLOCKAGE N BACK / NECK PROBLEMS N ATHEROSCLEROSIS N BREAST PROBLEMS N DIALYSIS N ECZEMA N OSTEOPOROSIS N ARTHRITIS N APPENDICITIS N DIABETES, TYPE N BAD TEETH N ENT N HEARTBURN / REFLUX Y AUTISM SPECTRUM DISORDER (ASD) N HEPATITIS / LIVER DISEASE N GOUT N SLEEP DISORDER N ALZHEIMER'S DISEASE N Brain Problems N HERPES N DEMENTIA N SEIZURES/EPILEPSY N HEADACHES/MIGRAINES N VASCULAR DISEASE N PACEMAKER N Blood Disorder N DIZZINESS N KIDNEY DISEASE N HEART DISEASE/HEART PROBLEMS N MULTIPLE SCLEROSIS N CARDIAC ARRHYTHMIA Y CANCER: SPECIFY N Gall Stones N ATRIAL FIBRILLATION N PULMONARY EMBOLISM N AUTOIMMUNE DISEASE N Gynecological History Statement/Question Response Date of Last Mammogram 08/10/2014 Date of Last Colonoscopy Obstetrics History GPAL:G 0 P 0 0 0 0 Immunizations Vaccine Type Date Status Note Provider Nam e and Address Organization Details Recorded Time Influenza, split virus, quadrivalent, preservative 1 completed Not Available [facility] 06/28/2022 03:28:34 COVID-19, mRNA, LNP-S, PF, 30 mcg/0.3 mL dose 1 completed Not Available [facility] 06/28/2022 03:28:34 COVID-19, mRNA, LNP-S, PF, 100 mcg/0.5mL dose or 50 mcg/0.25mL dose 1 completed Not Available [facility] 06/28/2022 03:28:35 COVID-19, mRNA, LNP-S, PF, 100 mcg/0.5mL dose or 50 mcg/0.25mL dose 0 completed Not Available [facility] 06/28/2022 03:28:35 Influenza, split virus, trivalent, preservative 5 completed Not Available [facility] 06/28/2022 03:28:35 Influenza, split virus, quadrivalent, preservative 9 completed Not Available [facility] 06/28/2022 03:28:35 influenza, unspecified formulation 8 completed Not Available [facility] 06/28/2022 03:28:35 Influenza, split virus, trivalent, preservative 4 completed Not Available [facility] 06/28/2022 03:28:35 Tdap 7 completed Not Available [facility] 06/28/2022 03:28:35 Past Encounters Encounter ID Performer Location Encounter Start Date Encounter Closed Date Diagnosis/Indication Diagnosis SNOMED-CT Code Diagnosis ICD10 Code Diagnosis Note [id number] Dayron pillai MD [facility] [address] [facility], [facility] [address] [place] [address] 07/15/2020 00:00:00 07/15/2020 16:59:55 [id number] Dayron pillai MD [facility] Internal [facility] [address] [place] [address] [place] [address] 11/22/2020 00:00:00 11/22/2020 17:12:49 [id number] Dayron pillai MD [facility] Internal [facility] [address] [place] [address] y , [place] [address] 05/23/2021 00:00:00 05/23/2021 11:40:59 [id number] Dayron pillai MD [facility] Internal [facility] [address] [place] [address] y , [place] [address] 11/28/2021 00:00:00 11/28/2021 12:06:53 [id number] Dayron pillai MD [facility] Internal [facility] [address] [place] [address] [place] [address] 06/14/2022 00:00:00 06/14/2022 18:38:23 [id number] Dayron pillai MD [facility] [place] [address] 12/13/2022 15:52:54 12/13/2022 16:19:33 Screening - NAD 254544336 Z13.9 Dr Busch n 09/04/18, again started on entocort if symptoms still persist would need another c-scope and possible Imuran therapy C-scope: Dr Jo-Ann nunez 07/14/2019 : Tubular adenoma, is to get another c-scope in 12/2019, get a referral to [facility] as per her wishes 04/05/2020 : C: C-scope: Dr Tracy Jimenez MD: 3mm polyp in ascending colon, diverticul osis in sigmoid and in descending colon and the transverse colon, next in 3 years as per history Mammogram: 07/17/17, Neg 9: Neg 020: Neg 021: Neg, [id number]: Neg Dexa: Ordered 07/15/2020 , 11/22/2020 PAP: 12/25/17: Dr Nicolas LINDA, did see her in 01/2020 UTD on yearly flu shotUTD Tdap if not done, 03/07/17UT D on COVID 19 vaccine RTC in 4 monthslabs to be doneER if worseshe did verbalize her understand ing of the above Supraventr icular tachycardia 9520496 I47.1 S/p ablationOn bystolic 10mg dailyOn HCTZ 25mg daily See Dr Pruitt Gastroesop hageal reflux disease without esophagitis 683694288 K21.[address] Jo-Ann nunez 03/13/18 On PPI does well on this Asthma 400725647 J45.[address] Dale Hand, [place], pulmonolog ist, 02/21/2021 , 02/20/2022 On ventolinOn SymbicortO n AAOn singulair Does well Anxiety 27322305 F41.9 On xanax as neededOn sertraline 50mg daily Does well Not suicidal or homicidal Skin lesion 84245147 L98 .9 skin lesionHas had a biopsy of the R shoulder skin lesion by Dr Escobar es well now Anemia 422208181 D64.9 Noting her history of colitisSho uld be on iron and vit c Hyperlipidemia 49473578 E78.5 On atorvastat in 40mg dailyGet labs Retinal disorder 2524884 9 H35.[address]s with Dr Long Colitis 17693352 K52.9 01/03/19: Dr Granados n, f/u again in 2-3 months, to get [...] helped Michelle dicyclomin Dajuan protonix Allergic rhinitis 382471 04 J30.9 On singulairO n HHNsOn symbicort Dr Concepcion smalls Steatotic liver disease 666482856 K76.0 Does wellGet labs Vitamin D deficiency 347 53896 E55.9 Low back pain 674673453 M54.50 Has taken flexerill in the pastNo LBP at the present Can renew Hypomagnesemia 974501327 E83.42 On mag ox OTC Get levels Varicose v eins of lower extremity 96323138 I83.93 Get a referral to Dr Kumar Bilateral hearing loss 21848162 H91.93 Get a hearing test done Hypokalemia 56695630 E87 .6 See case on the labs, repeat the K level Screening mammography 24 521068 Z12.31 Screening for osteoporosis 123656188 Z13.820 Gynecologi c examination 89826413 Z01.885 [id number] Dayron pillai MD [facility] [place] [address] [facility] [place] [address] 06/27/2023 15:55:55 06/27/2023 16:48:47 Screening - NAD 531666663 Z13.9 Dr Jo-Ann nunez 09/04/18, again started [...] Neg 9: Neg 020: Neg 021: Neg, [id number]: Neg Dexa: Ordered 07/15/2020 , 11/22/2020 PAP: 12/25/17: Dr Nicolas LINDA, did see her in 01/2020 UTD on yearly flu shotUTD Tdap if not done, 03/07/17UT D on COVID 19 vaccine RTC in 4 monthslabs to be doneER if worseshe did verbalize her understand ing of the above Supraventr icular tachycardia 7851534 I47.10 S/p ablationOn bystolic 10mg dailyOn HCTZ 25mg daily See Dr Radha Vivar 06/26/2023 Gastroesop hageal reflux disease without esophagitis 620472136 K21.[address] Jo-Ann nunez 03/13/18 On PPI does well on this Asthma 548655114 J45.[address] Dale Hand, [place], pulmonolog ist, 02/21/2021 , 02/20/2022 Seen Tashia Mirza 05/07/2023 : [facility] On ventolinOn Symbicort 160 2 puffs bidOn DuonebOn singulair Does well Anxiety 43659206 F41.9 On xanax as neededOn sertraline 50mg daily Does well Not suicidal or homicidal Skin lesion 99107929 L98 .9 skin lesionHas had a biopsy of the R shoulder skin lesion by Dr Escobar es well now Anemia 291586363 D64.9 Noting her history of colitisSho uld be on iron and vit c Hyperlipidemia 48888659 E78.5 On atorvastat in 40mg dailyGet labs Retinal disorder 1237407 9 H35.[address] more apts with Dr Long Colitis 97812823 K52.9 01/03/19: Dr Granados n, f/u again in 2-3 months, to get [...] that this has really helped Michelle dicyclomin Djauan protonixOn zofran Allergic rhinitis 250871 04 J30.9 On singulairO n HHNsOn symbicort Dr Concepcion smalls Steatotic liver disease 546117712 K76.0 Does wellGet labsStates that the LFTs were elevated d/t her diarrhea and she would like to repeat the labs again declines any GI referrals or US liver for now Vitamin D deficiency 347 24085 E55.9 Low back pain 349870258 M54.50 Has taken flexerill in the pastNo LBP at the present Can renew Hypomagnesemia 648107812 E83.42 On mag ox OTC Get levels Bilateral hearing loss 49974124 H91.93 Get a hearing test done Hypokalemia 65871850 E87 .6 See case on the labs, repeat the K level Screening mammography 24 860131 Z12.31 Screening for osteoporosis 800650098 Z13.820 Gynecologi c examination 77937123 Z01.419 Varicose v eins of lower extremity 02355958 I83.893 Has noted achyness and pain in the legs Get a referral to Dr Kumar Thyroid nodule 896215349 E04.1 Is to get Bx done on 07/12/2023 , is also to see ENT Dr Llamas [id number] Dayron pillai MD [facility] [place] [address] [place] [address] 12/24/2023 15:33:53 12/24/2023 16:38:25 Screening - NAD 335782451 Z13.9 Dr Jo-Ann nunez 09/04/18, again started [...] Neg 9: Neg 020: Neg 021: Neg, [id number]: Neg 023: Neg Dexa: Ordered 07/15/2020 , 11/22/2020 PAP: 12/25/17: Dr Nicolas LINDA, did see her in 01/2020 UTD on yearly flu shotUTD Tdap if not done, 03/07/17UT D on COVID 19 vaccine RTC in 6 monthslabs to be doneER if worseshe did verbalize her understand ing of the above Supraventr icular tachycardia 1846321 I47.10 S/p ablationOn bystolic 10mg dailyOn HCTZ 25mg daily See Dr Radha Vivar 06/26/2023 Gastroesop hageal reflux disease without esophagitis 151194490 K21.[address] Jo-Ann nunez 03/13/18 On PPI does well on this Asthma 959007258 J45.[address] Dale Hand, [place], pulmonolog ist, 02/21/2021 , 02/20/2022 Seen Tashia Mirza 05/07/2023 : [facility] On ventolinOn Symbicort 160 2 puffs bidOn DuonebOn singulair Does well Anxiety 37213381 F41.9 On xanax as neededOn sertraline 50mg daily Does well Not suicidal or homicidal Skin lesion 42798008 L98 .9 skin lesionHas had a biopsy of the R shoulder skin lesion by Dr Escobar es well now Anemia 086778600 D64.9 Noting her history of colitisSho uld be on iron and vit c Hyperlipidemia 78946689 E78.5 On atorvastat in 40mg dailyGet labs Retinal disorder 6719707 9 H35.[address]s with Dr Long Colitis 26746887 K52.9 01/03/19: Dr Granados n, f/u again in 2-3 months, to get [...] Michelle dicyclomin Dajuan protonixOn zofran Allergic rhinitis 041669 04 J30.9 On singulairO n HHNsOn symbicortO n ventolinSe es pulmonary with Dr Moran in [place] as per her hx 12/24/2023 Steatotic liver disease 102589566 K76.0 Does wellGet labsStates that the LFTs were elevated d/t her diarrhea and she would like to repeat the labs again declines any GI referrals or US liver for now Vitamin D deficiency 347 49893 E55.9 Low back pain 844609464 M54.50 Has taken flexerill in the pastNo LBP at the present Can renew Hypomagnesemia 787382416 E83.42 On mag ox OTC Get levels Bilateral hearing loss 50379581 H91.93 Get a hearing test done Hypokalemia 02951348 E87 .6 See case on the labs, repeat the K level Screening mammography 24 053782 Z12.31 Screening for osteoporosis 346763049 Z13.820 Gynecologi c examination 82520140 Z01.419 Varicose v eins of lower extremity 33118517 I83.893 Has noted achyness and pain in the legs Get a referral to Dr Kumar Thyroid nodule 269219388 E04.1 Bx 07/12/2023 : Benign [id number] Dayron pillai MD [facility] Primary Care Lisa nathan [address] [facility] [address] [place] [address] 06/16/2024 15:54:17 06/16/2024 16:32:03 Screening - NAD 732641644 Z13.9 Dr Jo-Ann nunez 09/04/18, again started on entocort if symptoms still persist would need another c-scope and possible Imuran therapy C-scope: Dr Jo-Ann nunez 07/14/2019 : Tubular adenoma, is to get another c-scope in 12/2019, get a referral to [facility] as per her wishes 04/05/2020 : [facility]: C-scope: Dr Tracy Jimenez MD: 3mm polyp in ascending colon, diverticul osis in sigmoid and in descending colon and the transverse colon, next in 3 years as per history 06/04/2023 : [facility]: C-scope: Tracy Jimenez MD: Ileocecal valve polyp, asc polyp, transv polyp Mammogram: 07/17/17, Neg 9: Neg 020: Neg 021: Neg, [email or web address]: Neg 023: Neg 024: Neg Dexa: Ordered PAP: 12/25/17: Dr Nicolas LINDA is to see her 06/25/2024 UTD on yearly flu shotUTD Tdap if not done, 03/07/17UT D on COVID 19 vaccineCan do shingrix vaccine RTC in 6 monthslabs to be doneER if worseshe did verbalize her understand ing of the above Supraventr icular tachycardia 4478303 I47.10 S/p ablationOn bystolic 10mg dailyOn HCTZ 25mg daily See Dr Radha Vivar 06/26/[address] Vivar 12/26/2023 , f/u in 18 months Gastroesop hageal reflux disease without esophagitis 494111749 K21.[address] Jo-Ann nunez 03/13/18 On PPI does well on this Asthma 698749797 J45.[address] Dale Hand, [place], pulmonolog ist, 02/21/2021 , 02/20/2022 Seen Tashia Mirza 05/07/2023 : [facility] On ventolinOn Symbicort 160 2 puffs bidOn DuonebOn singulair Does well Anxiety 96173778 F41.9 On xanax as neededOn sertraline 50mg daily Does well Not suicidal or homicidal Skin lesion 68003717 L98 .9 skin lesionHas had a biopsy of the R shoulder skin lesion by Dr Luz xie well now Dr Chloe MONTOYA 03/31/2024 , Bx for the L leg lesion Anemia 691729172 D64.9 Noting her history of colitisSho uld be on iron and vit c Hyperlipidemia 22952424 E78.5 On atorvastat in 40mg dailyGet labs Retinal disorder 5087102 9 H35.[address]s with Dr Long Colitis 74736188 K52.9 01/03/19: Dr Darwin nunez, f/u again [...] Michelle dicyclomin Dajuan protonixOn zofran Allergic rhinitis 357693 04 J30.9 On singulairO n HHNsOn symbicortO n ventolinSe es pulmonary with Dr Moran in [place] as per her hx 12/24/2023 Steatotic liver disease 251123620 K76.0 Does wellGet labsStates that the LFTs were elevated d/t her diarrhea and she would like to repeat the labs again declines any GI referrals or US liver for now Vitamin D deficiency 347 94423 E55.9 Low back pain 394720417 M54.50 Has taken flexerill in the pastNo LBP at the present Can renew Hypomagnesemia 425589685 E83.42 On mag ox OTC Get levels Bilateral hearing loss 86750207 H91.93 Get a hearing test done Screening for osteoporosis 084038542 Z13.820 Gynecologi c examination 36464673 Z01.419 Varicose v eins of lower extremity 59309437 I83.893 Has noted achyness and pain in the legs Get a referral to Dr Kumar Thyroid nodule 126658216 E04.1 Bx 07/12/2023 : [facility] Concerns Section Related Observation LastModified by Organization Detai ls LastModified Time None Recorded Concern Status LastModified by Organization Details LastModified Time None Recorded Advance Directives Directive N: Payers Insurance Date Sequence Insurance Name Policy Number Policy Pelletier Covered Member ID Pelletier Member ID Guarantor Name 06/13/2024 1 R [id number] Macrina Soria [id number] Macrina Soria Notes Date Note Type Note Provider Name and Address Organization Details Recorded Time 12/13/2022 text/html 03/07/17Here to establish carePast Hx:AnxietyHTNGERDAsth YajairaergiesReviewed social family and surgical historyHere to establish [...] 05/23/2021:Here for her routine aptShe is doing wellSsummer has no recent labsOV 11/28/2021:Here for her [...] doing well today Dayron Ambriz MD [address] [facility], [place], [address], [place] [facility] [employer] 12/13/2022 16:18:01 06/27/2023 text/html 03/07/17Here to establish [...] has bought a stationary bikeShe did see BETHhe also did do the labsOV 07/21/2019:Here for [...] 11/22/2020:Here for her routine aptShe is doing wellSsummer has not done her labs OV 05/23/2021:Here for her routine aptShe is doing wellShe has no recent labsOV 11/28/2021:Here for her routine aptShe feels wellSsummer did do the labs on 2OV 06/14/2022:Here [...] did get her C-scope Dayron Ambriz MD [address] [facility], [place], [address], [place] [facility] [employer] 06/27/2023 18:16:54 12/24/2023 text/html 03/07/17Here to establish carePast Hx:ArnolNGWoodrow GatesergiesReviewed social family and surgical historyHere to [...] has bought a stationary bikeShe did see GISsummer also did do the labsOV 07/21/2019:Here for [...] get another opinion with a Gi in [facility] UOV 07/15/2020;Tele visitShe is agreeable to to [...] for her varicose veins Dayron Ambriz MD [address] [facility], [facility] [address], [place], [address], [place] [facility] 12/24/2023 16:42:06 06/16/2024 text/html 03/07/17Here to establish carePast Hx:AnxietyHTNGERDAedilma GatesergiesReviewed [...] get another opinion with a Gi in [facility]OV 07/15/2020;Tele visitShe is agreeable to to [...] see Dr Kumar for her varicose veins OV 06/16/2024: Here for her f/u apt, she feels well today, no recent labs noted Dayron Ambriz MD [address] [place] [address] [place], [facility] [address], [place], [address], [place] [facility] 06/16/2024 17:43:17 OBGyn Episode No OBEpisode recorded.
--- OUTSIDE RECORDS SUMMARY | 2024-11-20 14:07 | XMS_ITS | Encounter Summary ---
Author Organization [facility] Address [address] [facility] [address] [place] [id number] Care Team Providers Care Numerical Control Drill Press Operator Name Role Phone Edwardo Verma MD Primary Care Provider [phone] Tammy Ambriz MD Primary Care Provide r Encounter Details Date Type Department Care Team (Late st Contact Info) Description 09/08/2016 Orders Only Arrhythmia Center ProviderHo MD [address] [place], [place] [id number] Social History Tobacco Use Types Packs/Day Years Used Date Smoking Tobacco: Never Alcohol Use Standard Drinks/Week Comments Yes 0 (1 standard drink = 0.6 oz pur e alcohol) Comments Unknown Sex and Gender Information Value Date Recorded Sex Assigned at Not on file Legal Sex Female 9:29 AM FLUX CORE WELDER Gender Identity Female 01/12/2020 4:54 PM CDT [...] on filedocumented in this encounter Care Teams Numerical Control Drill Press Operator Relationship Specialty Start Date End Date Edwardo Verma MD PCP - General 07/16/15 10/22/16 Tammy Ambriz MD [address] [place] [id number] PCP - General Internal Medicine 10/23/16 documented as of this encounter
--- OUTSIDE RECORDS SUMMARY | 2024-11-20 14:07 | XMS_ITS | Clinical Summary ---
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 She continues to do well without recurrence tachycardia. We will continue to monitor and follow closely, and manage new / recurrent arrhythmia expectantly. The patient will follow-up with me in 24 months for an office visit and twelve- lead ECG. Assessment & Plan (06/02/2017 12:02 PM WIRELESS CONSULTANT): The patient has not experienced symptoms post [...] ECG. Immunizations Immunization Administration Dates Next Due [employer] SARS-CoV-2 Monovalent Vaccination (12+ Yrs) PURPLE 02/11/2021 Surgical History Surgery Date Site/Laterality Comments TOTAL ABDOMINAL HYSTERECTOMY CHOLECYSTECTOMY SECTION COLONOSCOPY UPPER GASTROINTESTINAL ENDOSCOPY ANKLE SURGERY BLADDER SUSPENSION Medical History Medical History Date Comments Gastroesophageal reflux disease Hypertension Asthma Paroxysmal SVT (supraventricular tachycardia) s/p ablation 2015 Chronic diarrhea lymphocytic col itis 2018 Family [...] on file Legal Sex Female 9:29 AM WIRELESS CONSULTANT Gender Identity Female 01/12/2020 4:54 PM CDT Sexual Orientation Straight 02/09/2024 9: 46 AM CDT Obstetrics History Last Filed Vital Signs Vital Sign Reading Time Taken Comments Blood Pressure 120/74 12/26/2023 2:18 PM CDT Pulse 85 12/26/2023 2:18 PM CDT Temperature 36.3 C (97.3 F) 11/27/2023 8:39 AM CDT Respiratory Rate 14 06/26/2023 8:47 AM WIRELESS CONSULTANT Oxygen Saturation 96% 12/26/2023 2:18 PM CDT Inhaled Oxygen Concentration - - Weight 105.2 kg (231 lb 14.4 oz) 12/26/2023 2:18 PM CDT Height 170.2 cm (5' 7) 12/26/2023 2:18 PM CDT Body Mass Index 36.32 12/26/2023 2:18 PM CDT Plan of Treatment Health Maintenance Due Date Last Done Comments Depression Screening 1970 Hepatitis C Screening 1970 Hepatitis B Screening 01/21/1986 Regular Well Visit/Exam 18-64 01/21/1986 Pneumococcal vaccine <65 (1 of 2 - PCV) 01/21/1987 Zoster Vaccine (1 of 2) 01/21/2018 Covid-19 Vaccine (6 2023-2 5 season) 2023 10/17/2021, 02/11/2021, 01/28/2021, Additional history exists Influenza Vaccine (#1) 2024 , 02/12/2023, 01/28/2021, Additional history exists Breast Cancer Screening-Mammogram 02/21/2025 02/22/2024, 02/22/2024, 12/22/2022, Additional history exists DTaP/Tdap/Td Vaccine (2 - Td or Tdap) 03/07/2027 03/07/2017 Colon Cancer Screening-Colonoscopy 06/04/2033 06/04/2023, 04/05/2020 Colon Cancer Screening-CT Colonography Discontinued 06/04/2023, 04/05/2020 Colon Cancer Screening-DNA Stool Discontinued 06/04/19, 04/05/2020 Colon Cancer Screening-FIT Discontinued 06/04/2023, Colon Cancer Screening-Sigmoidoscopy Discontinued 06/04/2023, 04/05/2020 Procedures Procedure Name Priority Date/Time Associated Diagnosis Comments COLONOSCOPY 06/04/2023 1:51 PM WIRELESS CONSULTANT from Last 3 Months or Most Recently Relevant to Health Maintenance Results * COLONOSCOPY (06/04/2023 1:51 PM WIRELESS CONSULTANT) Anatomical Region Laterality Modality Other Narrative Procedure Note Tracy Jimenez MD - 06/04/2023 1:51 PM CST ENDOSCOPY LAB Patient Name: Macrina Soria Procedure Date: 06/04/2023 1:51 PM Date of : 1970 Admit Type: Outpatient Age: 53 Gender: Female Attending MD: Tracy Jimenez M.D. Room: [facility] ENDOSCOPY ROOM 01 Note Status: Finalized [...] The scope was passed under direct vision.The [id number] was introduced through the anusand advanced to [...] During normal business hours - Please call theNurse Coordinator: [phone] After hours, evening, nights, weekends and holidays- Please call the hospital excavator backhoe operator at and ask for the GI fellow vision teacher. Electronically by Dr Tracy Jimenez Tracy Jimenez M.D. 06/04/2023 2:26:25 PM Number of Addenda: 0 Note Initiated On: 06/04/2023 1:51 PM Tracy Jimenez MD ENDOSCOPY PROCEDURES Final Result from Last 3 Months or Most Recently Relevant to Health Maintenance Insurance [facility] Advance Directives For more information, please contact: [phone] * Full Code (Latest Code Status on File) Date Activated Date Inactivated Comments 06/04/2023 12:58 PM 06/04/2023 7:22 PM * Full Code Date Activated Date Inactivated Comments 04/05/2020 8:32 AM 04/05/2020 2:31 PM Care Teams Fiberglasser Relationship Specialty Start Date End Date Tammy Ambriz MD [address] [place] [address] PCP - General Internal Medicine 10/23/16
--- OUTSIDE RECORDS SUMMARY | 2024-11-20 14:07 | XMS_ITS | Referral Summary ---
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 She continues to do well without recurrence tachycardia. We will continue to monitor and follow closely, and manage new / recurrent arrhythmia expectantly. The patient will follow-up with me in 24 months for an office visit and twelve- lead ECG. Assessment & Plan (06/02/2017 12:02 PM SENIOR NURSE MANAGER): The patient has not experienced symptoms post [...] ECG. Immunizations Immunization Administration Dates Next Due [employer] SARS-CoV-2 Monovalent Vaccination (12+ Yrs) PURPLE 02/11/2021 [...] on file Legal Sex Female 9:29 AM SENIOR NURSE MANAGER Gender Identity Female 01/12/2020 4:54 PM CDT Sexual Orientation Straight 02/09/2024 9: 46 AM CDT Last Filed Vital Signs Vital Sign Reading Time Taken Comments Blood Pressure 120/74 12/26/2023 2:18 PM CDT Pulse 85 12/26/2023 2:18 PM CDT Temperature 36.3 C (97.3 F) 11/27/2023 8:39 AM CDT Respiratory Rate 14 06/26/2023 8:47 AM SENIOR NURSE MANAGER Oxygen Saturation 96% 12/26/2023 2:18 PM CDT Inhaled Oxygen Concentration - - Weight 105.2 kg (231 lb 14.4 oz) 12/26/2023 2:18 PM CDT Height 170.2 cm (5' 7) 12/26/2023 2:18 PM CDT Body Mass Index 36.32 12/26/2023 2:18 PM CDT Plan of Treatment Not on file Procedures Procedure Name Priority Date/Time Associated Diagnosis Comments COLONOSCOPY 06/04/2023 1:51 PM SENIOR NURSE MANAGER from Last 3 Months or Most Recently Relevant to Health Maintenance Results * COLONOSCOPY (06/04/2023 1:51 PM SENIOR NURSE MANAGER) Anatomical Region Laterality Modality Other Narrative Procedure Note Tracy Jimenez MD - 06/04/2023 1:51 PM CST ENDOSCOPY LAB Patient Name: Macrina Soria Procedure Date: 06/04/2023 1:51 PM Date of : 1970 Admit Type: Outpatient Age: 53 Gender: Female Attending MD: Tracy Jimenez M.D. Room: [facility] ENDOSCOPY ROOM 01 Note Status: Finalized Procedure: [...] The scope was passed under direct vision.The [id number] was introduced through the anusand advanced to [...] During normal business hours - Please call [facility] Coordinator: [phone] After hours, evening, nights, weekends and holidays- Please call the hospital extracting machine operator at and ask for the GI fellow button sewer hand. Electronically by Dr Tracy Jimenez Tracy Jimenez M.D. 06/04/2023 2:26:25 PM Number of Addenda: 0 Note Initiated On: 06/04/2023 1:51 PM Tracy Jimenez MD ENDOSCOPY PROCEDURES Final Result from Last 3 Months or Most Recently Relevant to Health Maintenance Insurance [facility] Advance Directives For more information, please contact: [phone] * Full Code (Latest Code Status on File) Date Activated Date Inactivated Comments 06/04/2023 12:58 PM 06/04/2023 7:22 PM * Full Code Date Activated Date Inactivated Comments 04/05/2020 8:32 AM 04/05/2020 2:31 PM Care Teams Brimmer Blocker Relationship Specialty Start Date End Date Tammy Ambriz MD [address] [place] [address] PCP - General Internal Medicine 10/23/16
--- OUTSIDE RECORDS SUMMARY | 2024-11-20 14:07 | XMS_ITS | Patient Health Record ---
Author Organization [facility] Address [address] [place] [address] [address] [place] [address] Care Team Providers Care Pantograph Transferrer Name Role Phone Vikas Mcdonough Unavailable [phone] Esvin Narayanan Unavailable [phone] Reason For Referral No Information Plan Of Treatment No Information Insurance Providers Payer Name Payer Address Payer Phone Subscriber Number Group Number Insured Name Patient Relationship to Insured Coverage Start Date Coverage End Date [employer] [address] [place] [address] [id number] Macrina Soria Self - patient is the insured 0
--- OUTSIDE RECORDS SUMMARY | 2024-11-20 14:07 | XMS_ITS | Clinical Summary ---
Author Organization [facility] Address [address] [place] [address] Care Team Providers Care Assistant Track And Field Coach Name Role Phone Dayron Ambriz MD Primary Care Provider Source Comments [facility],non-owned Affiliates and Associated Physician Practices is amultiple site organization consisting of ambulatory clinics and hospital sitesin [place], [place], [place] and [place]. This disclosure is being madepursuant to the Care Everywhere program and may not contain all information available regarding this patient. Last updated 18.[facility] Allergies Active Allergy Reactions Criticality Noted Date Comments Morphine Other 02/05/2019 Reaction: ESOPHAGEAL SPASM, Sulfa Drugs Rash,Fever Medium 02/05/2019 Medications * Be aware that medications may not be up to date on this document. Alwaysverify current medications with the patient. budesonide-form oterol (SYMBICORT) 160-4.5 MCG/ACT inhaler Symbicort 160 mcg-4.5 mcg/actuation HFA aerosol inhaler Active albuterol (PROVENTIL;VENT POLLO) (2.5 MG/3ML) 0.083% nebulizer solution inhale 3 milliliter (2.5MG) by nebulization route every 4-6 hours as needed 9 Active albuterol HFA (VENTOLIN HFA) 108 (90 Base) MCG/ACT inhaler every 4 hours 9 Active ALPRAZolam (XANAX) 0.25 MG tablet alprazolam 0.25 mg tablet Active Cholecalciferol (D-5000) 5000 units 7 Active fluticasone propionate (FLONASE) 50 MCG/ACT nasal spray [place] 2 sprays into the nose every 24 hours 9 Active hydroCHLOROthia zide (HYDRODIURIL) 25 MG tablet Take by mouth every 24 hours Active montelukast (SINGULAIR) 10 MG tablet montelukast 10 mg tablet 9 Active nebivolol (BYSTOLIC) 10 MG tablet Take [...] 019 Frequency of Binge Drinking Never 12/2018 Comments No Sex and Gender Information Value Date Recorded Sex Assigned at Female 02/11/2024 5:53 PM CDT Legal Sex Female 6:15 AM LAUNDRY OPERATOR FINISHING Gender Identity Female 02/11/2024 5:53 PM CDT Sexual Orientation Straight 02/11/2024 5: 53 PM CDT Last Filed Vital Signs Vital Sign Reading Time Taken Comments Blood Pressure - - Pulse - - Temperature - - Respiratory Rate - - Oxygen Saturation - - Inhaled Oxygen Concentration - - Weight 99.8 kg (220 lb) 02/22/2024 3:55 PM CDT Height 170.2 cm (5' 7) 02/22/2024 3:55 PM CDT Body Mass Index 34.46 02/22/2024 3:55 PM CDT Plan of Treatment Health Maintenance Due Date Last Done Comments COLOGUARD (AGES 45-75) - COLON CA SCREENING 1970 CT COLONOGRAPHY - COLON CA SCREENING [...] of 2) 01/21/2018 COVID-19 VACCINE (5 - ) 12/30/2023 02/11/2021, 01/28/2021, 05/11/2020, Additional history exists DEPRESSION SCREENING 04/30/2024 INFLUENZA VACCINE (#1) 2024 , 01/28/2021, 03/03/2019, Additional history exists MAMMOGRAM 02/21/2026 02/22/2024, 11/29, 12/16/2021, Additional history exists COLON MONITORING 06/04/2033 06/04/2023 COLONOSCOPY - COLON CA SCREENING 06/04/2033 06/04/2023 Colorectal Cancer Screening 06/04/2033 HIB VACCINE Aged Out No longer eligi ble based on patient's age to complete this topic HPV VACCINE Aged Out No longer eligi ble based on patient's age to complete this topic MENINGOCOCCAL (Group B) VACCINE SHARED DECISION-MAKING Aged Out No longer eligible based on patient's age to complete this topic MENINGOCOCCAL GROUPS A/C/Y/W VACCINE Aged Out No longer eligible based on patient's age to complete this topic Procedures Procedure Name Priority Date/Time Associated Diagnosis Comments MAMMO BILAT SCREENING W GREGORY Routine 02/22/2024 4:06 PM CDT Screening mammogram for breast cancer CYTOLOGY SMEAR PAP LEXUS 07/17/1997 11 :02 AM LAUNDRY OPERATOR FINISHING from Last 3 Months or Most Recently [...] greater than 20%. Consider referral to the [facility] for formal risk assessment [...] in either breast. Dayron Ambriz MD MAMMO ORDERABLES Final Result * CYTOLOGY SMEAR PAP (07/17/1997 11:02 AM LAUNDRY OPERATOR FINISHING) Result CASE NUMBER [id number] Comment: ORDERING PHYSICIAN STEPHANY MOISE SPECIMEN TYPE PAP Smear Date 07/16/1997 Procedure Cervical/Endocervical, 1 smear received Specimen Adequacy Satisfactory for Evaluation Categorization Benign Cellular Changes Comment Fungal Organisms Morphologically Consistent with Renetta spp. Inflammation Present. Snomed. 07/22/1997 6820 <1> Recreation Aide Radha Medina C.T. (ASCP) PAP Footnote The PAP smear is only a screening procedure to aid in the detection of cervical cancer and its precursors. It is not a diagnostic procedure and should not be used as the sole means to detect cervical cancer. Both false negative and false positive results have been experienced. MISCELLANEOUS SAMPLES / Unknown 07/17/1997 11:02 AM LAUNDRY OPERATOR FINISHING 07/17/1997 11:03 AM LAUNDRY OPERATOR FINISHING Historical Provider LAB - PATHOLOGY/CYTOLOGY ORDERABLES Final Result from Last 3 Months or Most Recently Relevant to Health Maintenance Insurance Member Subscriber Plan / Payer (Ef fective 2012-Present) Name:Macrina Hoff Relation to Subscriber:Self Name:Yang, Macrina Payer ID:[id number] (NAIC) Type:PPO Address: [place] [id number] Member Subscriber Plan / Payer (Ef fective 2012-Present) Name:YangAlexis ambrizy Relation to Subscriber:Self Name:YangAlexis ambrizy Payer ID:[id number] (NAIC) Type:PPO Address: [place] [id number] SELF PAY NO INSURANCE Member Subscriber Plan / Payer (Ef fective for All Dates) Name:Macrina Hoff Member ID:Not on file Relation to Subscriber:Not on file Name:MACRINA HOFF Subscriber ID:Not on file (Home) Address: [address] [place] [address] Payer ID:Not on file Group ID:Not on file Type:Self Pay Address: [facility] Care Teams Assistant Track And Field Coach Relationship Specialty Start Date End Date Dayron Ambriz MD [address] [place] [address] PCP - General Internal Medicine 07/17/17
--- OUTSIDE RECORDS SUMMARY | 2024-11-20 14:07 | XMS_ITS | Patient Health Record ---
Author Organization [facility] Billing Info Address [address] [place] [address] [place] [address] Support Name Relationship Address Phone Yang Mirza Emergency Contact [address] [place] [address] Macrina Soria Guarantor Unknown [phone] Allergies Allergen (clinical drug ingredient) Drug/Non Drug [...] Problem Status W/U Status Risk Notes Problem 09973508 Essential hypertension (I10) Active confirmed Problem 8757374 SVT (supraventricular tachycardia) (I47.1) Active confirmed Problem 833341411 Uncomplicated asthma, unspecified asthma severity (J45.909) Active confirmed Problem 465777649 Gastroesophageal reflux disease, esophagitis presence not specified (K21.9) Active confirmed Problem 99802340 Irritable bowel syndrome, unspecified type (K58.9) Active confirmed Plan Of Treatment No Information Insurance Providers Payer Name Payer Address Payer Phone Subscriber Number Group Number Insured Name Patient Relationship to Insured Coverage Start Date Coverage End Date [employer] [address] [address] [place], [place] [id number] Macrina Soria Self - patient is the insured 7 7 Medications Administered Medication Instructions Date of Administration Dosage Notes zMethylprednisolone Acetate 80 mg (Depo Medrol) 11/30/2016 80 [...]
== END 2024-11-20 13:55 | disposition home or self-care (01) ==
LOC: ANHIMG 13:55
PROVIDERS: PCP Internal Medicine; Visit Provider Internal Medicine
DX: Z13.820 Encounter for screening for osteoporosis (principal); Z78.0 Asymptomatic menopausal state
CPT/HCPCS: 77080

== ENCOUNTER 2024-12-10 08:22 | Outpatient (CLI) | payer OTHER, SELFPAY ==
--- OUTSIDE RECORDS SUMMARY | 2024-12-10 08:29 | XMS_ITS | Clinical Summary ---
Author Organization [facility] C Address [address] [place] [address] Care Team Providers Care Wastewater Treatment Operator Name Role Phone Tammy Ambriz MD Primary Care Provide r Allergies Active Allergy Reactions Criticality Noted Date Comments Sulfamethoxazole-Trimethoprim Rash,Fever Medium 2019 Elevated LFT Sulfa (Sulfonamide Antibiotics) Rash,Fever Medium Elevated LFT Medications nebivolol (BYSTOLIC) 10 mg tablet take 1 Tablet by oral route every day 0 0 02/11/20 16 Active cholecalcifero l (VITAMIN D3) 5,000 unit tablet take 1 tablet by mouth once daily 0 0 09/09/19 17 Active Bifidobacteriu m infantis (ALIGN) 4 mg capsule take 1 capsule by mouth once daily 0 0 09/09/19 17 Active montelukast (SINGULAIR) 10 mg tablet take 1 tablet by oral route every day in the evening 0 0 06/17/19 16 Active budesonide-for moterol (SYMBICORT) 160-4.5 mcg/actuation inhaler inhale 2 puff by inhalation route 2 times every day in the morning and evening 0 Inhaler 0 06/17/19 16 Active albuterol HFA (PROVENTIL HFA,VENTOLIN HFA,PROAIR HFA) 90 mcg/actuation inhaler every 4 (four) hours 09/05/19 19 Active ALPRAZolam (XANAX) 0.25 mg tablet Take 1 tablet (0.25 mg total) by mouth 2 (two) times a day as needed 12/25/19 20 Active ipratropium-al buteroL (DUO-NEB) 0.5-2.5 mg/3 mL nebulizer solution ipratropium 0.5 mg-albuterol 3 mg (2.5 mg base)/3 mL nebulization soln Active hydroCHLOROthi azide (HYDRODIURIL) 25 mg tablet 02/27/20 20 Active sertraline (ZOLOFT) 50 mg tablet Take 1 tablet (50 mg total) by mouth daily 06/13/19 21 Active atorvastatin (LIPITOR) 40 mg tablet 09/07/19 22 Active nortriptyline (PAMELOR) 25 mg capsule Take 1 capsule (25 mg total) by mouth nightly 30 capsule 11/27/[address] (PROTONIX) 40 mg EC tablet Take 1 tablet (40 mg total) by mouth 2 (two) times a day before breakfast and dinner 60 tablet 11 11/27/19 24 Active dicyclomine (BENTYL) 10 mg capsule TAKE 1 CAPSULE BY MOUTH 3 TIMES A DAY. 270 capsule 1 12/06/19 25 Active dicyclomine (BENTYL) 10 mg capsule Take 1 capsule (10 mg total) by mouth 3 (three) times a day 90 capsule 11 11/27/19 24 025 Discontinued Active Problems Problem Noted Date Diagnosed Date History of colon polyps 2023 Chronic diarrhea 03/30/2020 Overview (03/30/2020): Added automatically from request for surgery [id number] Epigastric pain 03/30/2020 Overview (03/30/2020): Added automatically from request for surgery [id number] Lymphocytic colitis 01/13/2020 SVT (supraventricular tachycardia) 07/14/2015 Overview (08/04/2016): SVT Assessment & Plan (06/02/2018 10:36 AM TRAINING AND DOCUMENTATION SPECIALIST): 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 She continues to do well without recurrence tachycardia. We will continue to monitor and follow closely, and manage new / recurrent arrhythmia expectantly. The patient will follow-up with me in 24 months for an office visit and twelve- lead ECG. Assessment & Plan (06/02/2017 12:02 PM TRAINING AND DOCUMENTATION SPECIALIST): The patient has not experienced symptoms post [...] ECG. Immunizations Immunization Administration Dates Next Due Pfizer SARS-CoV-2 Monovalent Vaccination (12+ Yrs) PURPLE 02/11/2021 [...] on file Legal Sex Female 9:29 AM TRAINING AND DOCUMENTATION SPECIALIST Gender Identity Female 01/12/2020 4:54 PM CDT Sexual Orientation Straight 02/09/2024 9: 46 AM CDT Obstetrics History Last Filed Vital Signs Vital Sign Reading Time Taken Comments Blood Pressure 120/74 12/26/2023 2:18 PM CDT Pulse 85 12/26/2023 2:18 PM CDT Temperature 36.3 C (97.3 F) 11/27/2023 8:39 AM CDT Respiratory Rate 14 06/26/2023 8:47 AM TRAINING AND DOCUMENTATION SPECIALIST Oxygen Saturation 96% 12/26/2023 2:18 PM CDT [...] Vaccine (1 of 2) 01/21/2018 Covid-19 Vaccine (2023-2 5 season) 2023 10/17/2021, 02/11/2021, 01/28/2021, Additional history exists Influenza Vaccine (#1) 2024 , 02/12/2023, 01/28/2021, Additional history exists Breast Cancer Screening-Mammogram 02/21/2025 02/22/2024, 02/22/2024, 12/22/2022, Additional history exists DTaP/Tdap/Td Vaccine (2 - Td or Tdap) 03/07/2027 03/07/2017 Colon Cancer Screening-Colonoscopy 06/04/2033 06/04/2023, 04/05/2020 Colon Cancer Screening-CT Colonography Discontinued 06/04/2023, 04/05/2020 Colon Cancer Screening-DNA Stool Discontinued 06/04/19 24, 04/05/2020 Colon Cancer Screening-FIT Discontinued 06/04/2023, Colon Cancer Screening-Sigmoidoscopy Discontinued 06/04/2023, 04/05/2020 Procedures Procedure Name Priority Date/Time Associated Diagnosis Comments COLONOSCOPY 06/04/2023 1:51 PM TRAINING AND DOCUMENTATION SPECIALIST from Last 3 Months or Most Recently Relevant to Health Maintenance Results * COLONOSCOPY (06/04/2023 1:51 PM TRAINING AND DOCUMENTATION SPECIALIST) Anatomical Region Laterality Modality Other Narrative Procedure Note Tracy Jimenez MD - 06/04/2023 1:51 PM CST ENDOSCOPY LAB Patient Name: Macrina Soria Procedure Date: 06/04/2023 1:51 PM Date of : 1970 Admit Type: Outpatient Age: 53 Gender: Female Attending MD: Tracy Jimenez M.D. Room: [facility] ENDOSCOPY ROOM 01 Note Status: Finalized [...] The scope was passed under direct vision.The [id number] was introduced through the anusand advanced to [...] During normal business hours - [facility]: [phone] After hours, evening, nights, weekends and holidays- Please call the hospital metal punch press operator at and ask for the GI fellow switchboard and control room operator. Electronically by Dr Tracy Jimenez Tracy Jimenez M.D. 06/04/2023 2:26:25 PM Number of Addenda: 0 Note Initiated On: 06/04/2023 1:51 PM Tracy Jimenez MD ENDOSCOPY PROCEDURES Final Result from Last 3 Months or Most Recently Relevant to Health Maintenance Insurance [facility] Advance Directives For more information, please contact: [phone] * Full Code (Latest Code Status on File) Date Activated Date Inactivated Comments 06/04/2023 12:58 PM 06/04/2023 7:22 PM * Full Code Date Activated Date Inactivated Comments 04/05/2020 8:32 AM 04/05/2020 2:31 PM Care Teams Wastewater Treatment Operator Relationship Specialty Start Date End Date Tammy Ambriz MD [address] [id number] PCP - General Internal Medicine 10/23/16
--- OUTSIDE RECORDS SUMMARY | 2024-12-10 08:29 | XMS_ITS | Continuity of Care Document ---
Author Organization [employer] Address [address] [place] [address] Phone Care Team Providers Care Basketballs And Footballs Reverser Name Role Phone Lastrenu OCRhiannaPilar Unavailable Unavailable [...] Diagnoses Date Provider Providers Copied on Encounter [facility], [address], [place], [place], [id number], tel:[phone] [place] Allergy Possible allergies (chief complaint) Non-allergic rhinitisGastr o-esophageal reflux disease without esophagitis Lastrenu KelseyPilar. [address] [facility], [facility] [address], [place], [place], [id number], [place]. tel:[phone] Referring Provider: Dayron pillai, [address] [facility] [address], [place], [address]. tel:[phone] Family History Family Member Type Diagnosis Age At Onset Father Problem (finding) Allergies Payers Payer name Insurance type Covered democrat ID Authoriza tion(s) R [facility] CI [id number] Social History Type Description Quantity Date Captured [...] History Of Prese nt Illness Possible allergies Possible allergies (comments) Sh renu is concerned [...] with 2 rounds of PO Prednisone by Eyelet Machine Operator that cares for her asthma (Dr Dale Hand)She has never had skin testing beforeShe is currently taking Flonase, Vivian, Dayquil PRN , Sudafed PRN and Montelukast year round, but medications don't seem to help Functional Status Date Functional Assessmen t No [...] Mental Status Date Cognitive Assessment Orientation - Hobson ed to time, place, person, situation. Patient Care Teams Name Effective Dates (start - stop) Status Members No Information
--- OUTSIDE RECORDS SUMMARY | 2024-12-10 08:29 | XMS_ITS | Clinical Summary ---
Author Organization [facility] Address [address] [facility] [place] [address] Care Team Providers Care Bellperson Name Role Phone Dayron Ambriz MD Primary Care Provider Source Comments [facility],non-owned Affiliates and Associated Physician Practices is amultiple site organization consisting of ambulatory clinics and hospital sitesin [place], [place], [place] and [place]. This disclosure is being madepursuant to the Care Everywhere program and may not contain all information available regarding this patient. Last updated 18.[facility] Allergies Active Allergy Reactions Criticality Noted Date [...] fluticasone propionate (FLONASE) 50 MCG/ACT nasal spray [place] 2 sprays into the nose every 24 [...] PM CDT Legal Sex Female 6:15 AM BAND AND CUFF CUTTER Gender Identity Female 02/11/2024 5:53 PM CDT [...] SMEAR PAP LEXUS 07/17/1997 11 :02 AM BAND AND CUFF CUTTER from Last 3 Months or Most Recently [...] greater than 20%. Consider referral to the [facility] for formal risk assessment [...] * CYTOLOGY SMEAR PAP (07/17/1997 11:02 AM BAND AND CUFF CUTTER) Result CASE NUMBER [id number] Comment: ORDERING PHYSICIAN STEPHANY MOISE SPECIMEN TYPE PAP Smear Date 07/16/1997 Procedure Cervical/Endocervical, 1 smear received Specimen Adequacy Satisfactory for Evaluation Categorization Benign Cellular Changes Comment Fungal Organisms Morphologically Consistent with Renetta spp. Inflammation Present. Snomed. 07/22/1997 7527 <1> Building Carpenter Radha Medina C.T. (ASCP) PAP Footnote The PAP smear is only a screening procedure to aid in the detection of cervical cancer and its precursors. It is not a diagnostic procedure and should not be used as the sole means to detect cervical cancer. Both false negative and false positive results have been experienced. MISCELLANEOUS SAMPLES / Unknown 07/17/1997 11:02 AM BAND AND CUFF CUTTER 07/17/1997 11:03 AM BAND AND CUFF CUTTER Historical Provider LAB - PATHOLOGY/CYTOLOGY ORDERABLES Final Result from Last 3 Months or Most Recently Relevant to Health Maintenance Insurance Member Subscriber Plan / Payer (Ef fective 2012-Present) Name:Macrina Hoff Relation to Subscriber:Self Name:Yang, Macrina Payer ID:[id number] (NAIC) Type:PPO Address: [address] [id number] Member Subscriber Plan / Payer (Ef fective 2012-Present) Name:YangAlexis ambrizy Relation to Subscriber:Self Name:YangAlexis ambrizy Payer ID:[id number] (NAIC) Type:PPO Address: [place] [id number] SELF PAY NO INSURANCE Member Subscriber Plan / Payer (Ef fective for All Dates) Name:Macrina Hoff Member ID:Not on file Relation to Subscriber:Not on file Name:MACRINA HOFF Subscriber ID:Not on file (Home) Address: [address] [place] [address] Payer ID:Not on file Group ID:Not on file Type:Self Pay Address: [facility] Care Teams Bellperson Relationship Specialty Start Date End Date Dayron Ambriz MD [address] [facility] [address] [place] [address] PCP - General Internal Medicine 07/17/17
--- OUTSIDE RECORDS SUMMARY | 2024-12-10 08:29 | XMS_ITS | Continuity of Care Document ---
Author Organization [facility] Address [address] [place] [address] Phone Care Team Providers Care Policy Manager Name Role Phone Moffett OD, Jeet Unavailable Unavailable Advance Directives Directive Yes / No Effective Date File Name No Information Encounters Encounter Description Practice Location Reason(s) For Visit Diagnoses Date Provider Providers Copied on Encounter [facility], [address] [place] [address] [address], [place], [place], [id number], [place] tel:[phone] [facility] No Information [facility]-2 7-200 0 Moffett OD Jeet. [address] , [address], [place], [address], [place]. tel:[phone] Family History Family Member Type Diagnosis Age At Onset No Information Payers Payer name Insurance type Covered libertarian ID Authoriza tion(s) No Information Social History [...]
--- OUTSIDE RECORDS SUMMARY | 2024-12-10 08:29 | XMS_ITS | Patient Health Record ---
Author Organization [facility] Address [address] [place] [address] [address] [place] [address] Care Team Providers Care Health Program Analyst Name Role Phone Vikas Mcdonough Unavailable [phone] Esvin Narayanan Unavailable [phone] Reason For Referral No Information Plan Of Treatment No Information Insurance Providers Payer Name Payer Address Payer Phone Subscriber Number Group Number Insured Name Patient Relationship to Insured Coverage Start Date Coverage End Date [employer] [address] [place] [address] [id number] Macrina Soria Self - patient is the insured 0
--- OUTSIDE RECORDS SUMMARY | 2024-12-10 08:29 | XMS_ITS | Patient Health Record ---
Author Organization [facility] Billing Info Address [address] [place] [address] [place] [address] Support Name Relationship Address Phone Yang Mirza Emergency Contact [address] [place] [address] Macrina Soria Guarantor Unknown [phone] Allergies Allergen (clinical drug ingredient) Drug/Non Drug [...] Problem Status W/U Status Risk Notes Problem 33619567 Essential hypertension (I10) Active confirmed Problem 6302013 SVT (supraventricular tachycardia) (I47.1) Active confirmed Problem 853489678 Uncomplicated asthma, unspecified asthma severity (J45.909) Active confirmed Problem 212523925 Gastroesophageal reflux disease, esophagitis presence not specified (K21.9) Active confirmed Problem 17190354 Irritable bowel syndrome, unspecified type (K58.9) Active confirmed Plan Of Treatment No Information Insurance Providers Payer Name Payer Address Payer Phone Subscriber Number Group Number Insured Name Patient Relationship to Insured Coverage Start Date Coverage End Date [employer] [address] [address] [place], [place] [id number] Macrina Soria Self - patient is the [...]
--- OUTSIDE RECORDS SUMMARY | 2024-12-10 08:29 | XMS_ITS | Encounter Summary ---
Author Organization [facility] Address [address] [facility] [address] [place] [address] Care Team Providers Care Care Provider Name Role Phone Edwardo Verma MD Primary Care Provider [phone] Tammy Ambriz MD Primary Care Provide r Encounter Details Date Type Department Care Team (Late st Contact Info) Description 09/08/2016 Orders Only [facility] ProviderHo MD [address] [place], [place] [id number] Social History Tobacco Use Types Packs/Day Years Used Date Smoking Tobacco: Never Alcohol Use Standard Drinks/Week Comments Yes 0 (1 standard drink = 0.6 oz pur e alcohol) Comments Unknown Sex and Gender Information Value Date Recorded Sex Assigned at Not on file 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
--- OUTSIDE RECORDS SUMMARY | 2024-12-10 08:29 | XMS_ITS ---
Author Organization [facility] Address [address] [place] [address] [address] [place] [address] Care Team Providers Care Charter Pilot Name Role Phone Vikas Mcdonough Unavailable [phone] Esvin Narayanan [phone] REASON FOR VISIT LBP Encounters Encounter Location Date Provider Diagnosis [facility] [address] [place] [address] [address] [place] [address] 04/02/2024 Esvin Narayanan Plan Of Treatment No Information Progress Notes * Macrina HOFF RDOB:1970 (54 yo F)Acc No.[id number]:04/02/2024 Patient: Marcy STORY Macrina Thapa Provider: Zafar Narayanan MD :1970 A ge:54 Y S ex:Female Date:04/02/2024 Phone: Address:[address] [place], [place] [address] Subjective: * Chief Complaints: * 1 . LBP. * Medical History: Objective: * Vitals: Assessment: Plan: * Treatment: Forms: * Billing Information: * Visit Code: * Procedure Codes: * Electronic signature of Esvin Narayanan MD on 12/10/2024 at 08:28 AM CDT Sign off status: Pending * Provider: Zafar Narayanan MD Date: 1 06/03/2023 Generated for Tim bynum/Raza/eTransmitting on: 0 12/10/2024 08:28 AM CDT
--- OUTSIDE RECORDS SUMMARY | 2024-12-10 08:29 | XMS_ITS ---
Author Organization [facility] Address [address] [place] [address] [address] [place] [address] Care Team Providers Care Coordinator Cardiopulmonary Services Name Role Phone Vikas Mcdonough Unavailable [phone] Encounters Encounter Location Date Provider Diagnosis [facility] [address] [facility] [place] [address] 03/11/2024 Vikas Mcdonough Plan Of Treatment No Information Progress Notes * LUIS EDUARDO Macrina RDOB:1970 (54 yo F)Acc No.[id number]:03/11/2024 Patient: Macrina GUERRA Provider: Luis Angel Mcdonough MD :1970 A ge:54 Y S ex:Female Date:03/11/2024 Phone: Address:[address] [place], [place] [address] Subjective: * Chief Complaints: * * Medical History: Objective: * Vitals: Assessment: Plan: * Treatment: Forms: * Billing Information: * Visit Code: * Procedure Codes: * Electronic signature of Isaias Mcdonough MD on 12/10/2024 at 08:28 AM CDT Sign off status: Pending * Provider: Luis Angel Mcdonough MD Date: 05/11/2023 Generated for Tim bynum/Raza/Werner on: 0 12/10/2024 08:28 AM CDT
[2024-12-10 18:50] LABS: Hematocrit 36.4 % (37.0-47.0); Hemoglobin 11.4 g/dL (12.0-15.0); Immature Granulocyte Percent A 0.2 % (0-0.5); Lymphocytes Absolute Auto 2.19 K/mm3 (0.9-3.2); Mean Corpuscular HGB Conc 31.3 g/dl (32-36); Mean Corpuscular Hemoglobin 27.7 pg (26-34); Mean Corpuscular Volume 88.6 fl (80-100); Nucleated Red Blood Cells Absolute Auto 0.000 K/mm3 (0.0-0.012); Nucleated Red Blood Cells Perc 0.0 % (0.0-0.2); Platelet Count Result 279 k/mm3 (150-375); Red Blood Count 4.11 M/mm3 (4.2-5.4); White Blood Count 6.2 K/mm3 (4.5-10.0)
[2024-12-10 18:57] LABS: Alanine Aminotransferase 33 U/L (6-35); Albumin Level 4.3 g/dL (3.5-5.1); Alkaline Phosphatase 76 U/L (38-126); Anion Gap 8 mmol/L (4-12); Aspartate Amino Transferase 43 U/L (14-36); Bilirubin,Total 0.5 mg/dL (0.2-1.3); Blood Urea Nitrogen 20 mg/dL (7-17); Calcium 9.6 mg/dL (8.4-10.2); Carbon Dioxide 29 mmol/L (22-30); Chloride 100 mmol/L (98-107); Cholesterol 162 mg/dL (0-200); Estimated Glomerular Filt Rate > 60; Glucose 109 mg/dL (65-110); HDL Direct 41 mg/dL; Magnesium 2.0 mg/dL (1.6-2.3); Potassium 3.7 mmol/L (3.4-5.0); Sodium 137 mmol/L (137-145); Total Protein 7.6 g/dL (6.3-8.2); Triglycerides 124 mg/dL (<150)
[2024-12-10 19:27] LABS: Thyroid Stimulating Hormone Reflex 1.770 uIU/mL (0.465-4.68)
== END 2024-12-10 08:23 | disposition home or self-care (01) ==
PROVIDERS: PCP Internal Medicine; Visit Provider Internal Medicine
DX: E78.5 Hyperlipidemia, unspecified (principal); E55.9 Vitamin D deficiency, unspecified
CPT/HCPCS: 36415; 80053; 80061; 82306; 83735; 84443; 85025

== ENCOUNTER 2025-02-23 14:36 | Outpatient (CLI) | payer OTHER, SELFPAY ==
--- NOTE | ~2025-02-23 | US_ITS ---
EXAMINATION: US thyroid DATE: 02/23/2025 15:16 INDICATION: Nontoxic multinodular goiter TECHNIQUE: Multiple ultrasound images of the thyroid were obtained. COMPARISON: 02/15/2024 and 07/12/2023 FINDINGS: The right thyroid lobe measures 6.0 x 2.2 x 2.7 cm. The left thyroid lobe measures 3.7 x 1.2 x 0.9 cm. No interval change in a previously biopsied 4.1 cm solid heterogeneously hypoechoic right thyroid mass which is wider than tall with smooth to ill-defined margins and without echogenic foci. (TI-RADS 4, moderately suspicious , FNA if >=1.5 cm, annual followup is >=1 cm). Also without significant interval change is a 9 mm anechoic cystic TI RADS 1 nodule with posterior acoustic enhancement at the inferior left thyroid lobe. IMPRESSION: 1. Stable bilateral thyroid nodules, the larger a 4.1 cm TI RADS 4 right thyroid mass with prior benign biopsy on 07/12/2023 and the smaller measuring 9 mm benign TI RADS 1 cystic left thyroid nodule. Reviewed, dictated and finalized at location A. IMPRESSION: 1. Stable bilateral thyroid nodules, the larger a 4.1 cm TI RADS 4 right thyroi d mass with prior benign biopsy on 07/12/2023 and the smaller measuring 9 mm margie ign TI RADS 1 cystic left thyroid nodule.
== END 2025-02-23 14:37 | disposition home or self-care (01) ==
LOC: MICIMG 14:37
PROVIDERS: PCP Internal Medicine; Visit Provider Otolaryngology
DX: E04.2 Nontoxic multinodular goiter (principal)
CPT/HCPCS: 76536